=== PATIENT | male | born 1955 | race Caucasian/White ===

== ENCOUNTER → 2019-01-22 09:57 | Outpatient (CLI) | payer MEDICARE ==
[2015-11-26 07:32] VITALS: BMI 28.5
[~2019-01-22 09:57] MED LIST: ACETAMINOPHEN325 MG PO; CARDIZEM CD360 MG PO; CARDURA2 MG PO; CATAPRES0.1 MG PO; CELEXA20 MG PO; CO Q-1030 MG PO; COLCRYS0.6 MG PO; DILT-CD180 MG PO; GLUCOTROL 5 MG T5 MG PO; HEPARIN SOD5000 U/ML SQ; HUMULIN R100 U/ML SC; IMODIUM2 MG PO; LACTINEX GRANUL1 PCK PO; LEVAQUIN250 MG PO; LIPITOR10 MG PO; LIPITOR40 MG PO; MACRODANTIN50 MG PO; ORAPRED ODT10 MG/TAB POINH; PREDNISONE10 MG PO; PRILOSEC10 M1 PO; PROGRAF0.5 MG PO; PROTONIX40 MG PO; PROVASTATIN PO; TACROLIMUS ANHYD1 MG PO; TEGRETOL 200 M200 MG PO; TEGRETOL200 MG PO; ULORIC40 MG PO; ULTRAM50 MG PO; ZOFRAN4 MG PO; ZYLOPRIM100 MG PO
== END | disposition home or self-care (01) ==
LOC: D.US 09:57
PROVIDERS: ATTEND Internal Medicine Nephrology
DX: Z94.0 Kidney transplant status (principal)

== ENCOUNTER 2019-03-24 11:19 | Inpatient (IN) | payer MEDICARE ==
[~2019-03-24] VITALS: Ht 172.7 cm; Wt 82.6 kg
[2019-03-24] VITALS (9 sets, daily range): BP systolic 135–174; BP diastolic 71–114; BMI 27.0
[2019-03-24] MEDS ORDERED: COLCRYS0.6 MG PO (11:27)
[2019-03-24] MEDS ORDERED: ELIQUIS5 MG PO (11:28)
[2019-03-24] MEDS ORDERED: LASIX PO (11:28)
[2019-03-24 12:07] LABS: BASOPHILS 0.4 % (0-2); HEMATOCRIT 46.7 % (42.0-54.0); HEMOGLOBIN 16.2 g/dL (13.5-17.5); IMMATURE GRANULOCYTES 0.1 % (0-5); LYMPHOCYTES 35.6 % (15-50); MCH 31.8 pg (26.0-34.0); MCHC 34.7 g/dL (31.0-37.0); MCV 91.7 fL (80.0-100.0); MEAN PLATELET VOLUME 11.2 fL (7.4-10.4); MONOCYTES 7.2 % (2-11); NEUTROPHILS 52.7 % (40-80); RBC 5.09 10x6/uL (4.20-6.10); RDW 13.1 % (11.5-14.5); WBC 7.8 10x3/uL (4.8-10.8)
[2019-03-24 12:10] LABS: PLATELET COUNT 219 10x3/uL (130-400)
[2019-03-24 12:12] LABS: ALBUMIN 2.9 g/dL (3.4-5.0); ANION GAP 16.1 mmol/L (8-16); BILIRUBIN - TOTAL 0.49 mg/dL (0.2-1.3); CALCIUM 8.2 mg/dL (8.5-10.1); CARBON DIOXIDE 19.8 mmol/L (21.0-32.0); CREATININE - SERUM 2.5 mg/dL (0.6-1.3); POTASSIUM - SERUM 3.9 mmol/L (3.5-5.1); PROTEIN - SERUM 6.8 g/dL (6.4-8.2)
--- NOTE | 2019-03-24 14:00 | NUR ---
ATTEMPTED IN/OUT CATH. UNABLE TO PASS PROSTATE D/T RESISTANCE. NOTIFIED AN ANOTHER WILL ATTEMPT
--- NOTE | 2019-03-24 14:25 | NUR ---
BRENDA ALMEIDA ATTEMPTED TO STRAIGHT CATH. UNABLE TO ADVANCE. NOTED SMALL AMT RBR WHILE PLACING
--- NOTE | 2019-03-24 15:30 | NUR ---
DR CABEZAS AT BS. EXPL PROCEDURE TO PT: CYSTOSCOPY AND FC PLACEMENT. PT VERB UNDER. CONSENT SIGNED AND WITNESSED
--- NOTE | 2019-03-24 16:05 | NUR ---
TO CT VIA STRETCHER THEN TO ROOM # 2130, CONDITION STABLE
--- NOTE | 2019-03-24 16:18 | NUR ---
REPORT CALLED TO BRENDA ARELLANO
--- NOTE | 2019-03-24 16:36 | NUR ---
ARRIVE TO ROOM VIA WHEELCHAIR ACCOMPANIED BY DAUGHTER. ALERT AND ORIENTED X4. AMBULATES WITH ASSISTANCE TO BED. STATES USING WALKER AT HOME. REPORTS TAKING ELIQUIS. CONSENTS FOR CYSTOSCOPY SIGNED ON CHART. RT WRIST IV INFUSING NS @125ml/HR CONTINUED INFUSING PER . DENIES PAIN OR SOB. DENIES N/V. CONTINUE ADMISSION PROCESS AND SAFETY PRECAUTIONS.
[2019-03-24] MEDS ORDERED: NORVASC5 MG PO (16:50)
[2019-03-24] MEDS ORDERED: PEPCID40 MG PO (16:51)
--- NOTE | 2019-03-24 17:46 | NUR ---
TAKEN TO PROCEDURE VIA BED.
--- NOTE | 2019-03-24 18:37 | NUR ---
RETURN TO ROOM VIA BED FROM PROCEDURE. BARON CATHETER DRAINING BY GRAVITY SECURED TO RT INNER THIGH. BP-155/97, HR-83, O2-94% RA, T-98. DENIES ANY PAIN. ALERT AND ORIENTED X4. FAMILY AT BEDSIDE. CONTINUE PLAN OF CARE AND SAFETY PRECAUTIONS.
--- NOTE | 2019-03-24 19:31 | NUR ---
RECIEVED LAYING IN BED WITH HOB ELEVATED AND EYES CLOSED. EASILY AROUSES WITH VERBAL STIMULI. REPORTED RECENT FALLS AT HOME. F/C IN PLACE WITH CLEAR YELLOW URINE DRAINING TO BEDSIDE DRAINAGE SYSTEM. DENIES ANY NEEDS AT THIS TIME.
[2019-03-24 21:13] LABS: APPEARANCE CLEAR (CLEAR); COLOR YELLOW (YELLOW); NITRITE NEGATIVE (NEGATIVE); PROTEIN 1+ mg/dL (NEGATIVE); SPECIFIC GRAVITY 1.015 (1.005-1.020)
[2019-03-24 21:14] LABS: BILIRUBIN NEGATIVE (NEGATIVE); GLUCOSE NEGATIVE (NEGATIVE); KETONE NEGATIVE (NEGATIVE); UROBILINOGEN NORMAL (NORMAL)
[2019-03-24 21:15] LABS: BACTERIA FEW /hpf (NEGATIVE); RED CELLS - URINE 0-5 /hpf (0-5); WHITE CELLS - URINE 0-5 /hpf (NEGATIVE)
[2019-03-25] VITALS: BP 141/95
[2019-03-25 04:00] VITALS: BP 175/88
[2019-03-25 05:16] LABS: BASOPHILS 0.3 % (0-2); EOSINOPHILS 3.7 % (0-7); HEMATOCRIT 39.6 % (42.0-54.0); HEMOGLOBIN 13.2 g/dL (13.5-17.5); IMMATURE GRANULOCYTES 0.1 % (0-5); LYMPHOCYTES 28.3 % (15-50); MCH 30.8 pg (26.0-34.0); MCHC 33.3 g/dL (31.0-37.0); MCV 92.5 fL (80.0-100.0); MEAN PLATELET VOLUME 11.3 fL (7.4-10.4); MONOCYTES 7.8 % (2-11); NEUTROPHILS 59.8 % (40-80); RBC 4.28 10x6/uL (4.20-6.10); RDW 13.3 % (11.5-14.5); WBC 7.6 10x3/uL (4.8-10.8)
[2019-03-25 05:25] LABS: PLATELET COUNT 154 10x3/uL (130-400)
[2019-03-25 05:28] LABS: ANION GAP 14.4 mmol/L (8-16); CALCIUM 7.3 mg/dL (8.5-10.1); CARBON DIOXIDE 21.5 mmol/L (21.0-32.0); CREATININE - SERUM 2.1 mg/dL (0.6-1.3); MAGNESIUM - SERUM 1.2 mg/dL (1.8-2.4); POTASSIUM - SERUM 3.9 mmol/L (3.5-5.1)
--- NOTE | 2019-03-25 07:30 | NUR ---
RESTING IN BED WITH EYES CLOSED. RESPIRATIONS EVEN AND REGULAR. BARON DRAINING BY GRAVITY OFF THE FLOOR. CONTINUE PLAN OF CARE AND SAFETY PRECAUTIONS.
--- NOTE | 2019-03-25 08:22 | OP ---
PATIENT NAME: DEIRDRE HAYDEN MEDICAL RECORD: [id number] :59 LOCATION:[facility].2130 ADMISSION DATE:03/24/19 SURGEON: SKIP CABEZAS MD DATE OF OPERATION: 03/24/2019 SURGEON: Skip Cabezas MD ANESTHESIA: TIVA by No Hernandez CRNA. DIAGNOSES: Urinary retention, inability to be catheterized, urethral stricture. PROCEDURES: Cystoscopy, urethral stricture dilation, 16-Italian Hooper catheter insertion over a guidewire. FINDINGS: Bulbar urethral stricture, moderately obstructive lateral lobes of the prostate. BLOOD LOSS: None. CLINICAL HISTORY: This is a 63-year-old male, who has diabetes mellitus type 2 with end-stage renal failure. He has a cadaveric renal transplant in the right lower quadrant. He has an atonic neurogenic bladder for which he performs self-intermittent catheterization. He also has had coronary artery disease with a 4-vessel bypass grafting done and a previous history of a stroke. He is on Eliquis. He has not been able to catheterize himself today. He is running into resistance. The ER was unable to also be able to place a catheter into him. Therefore, a urology consultation was requested. He has some urethral bleeding from the catheterization attempts and I suspected that he might have a urethral injury. He has had chronic nausea and vomiting for the past 2 days. On reviewing his blood work, his white count is normal at 7.8, hemoglobin 16.2, his potassium is normal at 3.9, his BUN is elevated at 40 and creatinine is elevated at 2.5. I do not know what his baseline creatinine is. His magnesium is also low at 1.4. He comes now to have cystoscopy and Hooper catheter placement over a guidewire. DESCRIPTION OF PROCEDURE: The patient was given IV sedation. He was placed in lithotomy position and prepped and draped. A 21-Italian cystoscope with 30-degree lens was used for visualization. Going into the bulbar urethra, I encountered a tight urethral stricturing, which was irregular. Using the scope, I managed to dilate the stricture zone and get past. The prostate has some mild bilateral lateral lobe obstruction. Going into the bladder, there are single ureteral orifices bilaterally. No bladder tumors or blood clots are seen. The lens was removed with the cystoscope sheath and the bladder. A sensor wire was then inserted into the bladder through the cystoscope sheath. The sheath was then removed, leaving the wire in place. Over the wire, we inserted a 16-Italian kashia tip Hooper catheter. This was pushed all the way into the bladder and then the balloon was inflated with 10 cc of sterile water. The catheter was then put to bag drainage after removing the wire. TRANSINT:[id number] Voice Confirmation ID: [id number] DOCUMENT ID: [id number] OPERATIVE REPORT [id number] DEIRDRE HAYDEN, SKIP Allen MD at 0822 CC: [id number] DICTATION DATE: 03/24/19 182 DRIER: 03/25/19 0300 ADM IN [facility] [address] [place] [address]
[2019-03-25 08:45] VITALS: BP 150/99
[2019-03-25 12:45] VITALS: BP 174/69
[2019-03-25 14:39] VITALS: Ht 172.7 cm; Wt 82.6 kg
[2019-03-25 16:46] VITALS: BP 176/119
--- NOTE | 2019-03-25 18:20 | NUR ---
ALERT AND ORIENTED X4. SITTING UP IN BED WATCHING TV. DENIES PAIN OR SOB. REPORTS STILL HAVING DIARRHEA. BARON SECURED TO INNER RT THIGH DRAINING BY GRAVITY. CONTINUE PLAN OF CARE AND SAFETY PRECAUTIONS.
--- NOTE | 2019-03-25 19:16 | NUR ---
PATIENT IS AAO WATCHING TV. NO VISIBLE SIGNS OF DISTRESS. PATIENT DENIES ANY COMPLAINTS OR PAIN. BED IN THE LOWEST POSITION AND BED IN THE LOWEST POSITION.
[2019-03-25 20:00] VITALS: BP 191/101
[2019-03-26] VITALS: BP 143/98
[2019-03-26 04:00] VITALS: BP 139/75
[2019-03-26 05:51] LABS: ANION GAP 13.5 mmol/L (8-16); CALCIUM 7.3 mg/dL (8.5-10.1); CREATININE - SERUM 1.9 mg/dL (0.6-1.3); POTASSIUM - SERUM 3.5 mmol/L (3.5-5.1)
--- NOTE | 2019-03-26 07:52 | NUR ---
ASSESSMENT DONE. DENIES NEEDS
[2019-03-26 08:00] VITALS: BP 156/84
[2019-03-26] MEDS ORDERED: MAG-OX 400 MG400 MG PO (10:02)
--- NOTE | 2019-03-26 10:38 | NUR ---
I have reviewed this patient and I concur with the Shift Assessment completed by the Licensed Practical Nurse today this shift.
[2019-03-26 12:00] VITALS: BP 160/85
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
--- NOTE | 2019-03-26 13:10 | NUR ---
DC GIVEN TO PT
--- NOTE | 2019-03-26 13:29 | NUR ---
DC HOME PER PERSONAL CAR
--- NOTE | 2019-03-26 17:19 | MORECARE ---
CASE MANAGEMENT DISCHARGE SUMMARY PATIENT: DEIRDRE HAYDEN UNIT: [id number] ADM DATE: 03/24/19 AGE: 63 : 59 SEX: M ROOM/BED: D.2130 AUTHOR: MI PACK PHYSICIAN: REFERRING PHYSICIAN: TIGRE ALBARADO MD DATE OF SERVICE: 03/26/19 Discharge Plan Patient Name: DEIRDRE HAYDEN Facility: [facility]:[place] : 1955 Planned Disposition: Home Anticipated Discharge Date: 03/26/19 Discharge Date: 03/26/2019 Expected LOS: 2 Initial Reviewer: [email or web address] Initial Review Date: 03/26/2019 Generated: 03/26/19 6:19 pm Patient Name: DEIRDRE HAYDEN Page [id number] at 3513 All edits/amendments must be made on the electronic document DICTATION DATE: 03/26/191718 BAT CARRIER: PERLA 03/26/191718 RPT#: [id number] DC DATE:03/26/19 STATUS: DIS IN [facility] [address] [place] [address] END OF REPORT
--- NOTE | 2019-03-26 17:32 | MORECARE ---
CASE MANAGEMENT DISCHARGE SUMMARY PATIENT: DEIRDRE HAYDEN UNIT: [id number] ADM DATE: 03/24/19 AGE: 63 : 59 SEX: M ROOM/BED: D.2130 AUTHOR: RAMONEDOC PHYSICIAN: REFERRING PHYSICIAN: TIGRE ALBARADO MD DATE OF SERVICE: 03/26/19 Discharge Plan Patient Name: DEIRDRE HAYDEN Facility: [facility]:[place] : 1955 Planned Disposition: Home Anticipated Discharge Date: 03/26/19 Discharge Date: 03/26/2019 Expected LOS: 2 Initial Reviewer: [email or web address] Initial Review Date: 03/26/2019 Generated: 03/26/19 6:32 pm Comments DCP- Discharge Planning Updated by [email or web address]: Jordon Shine on 03/26/19 4:[address] Patient Name: DEIRDRE HAYDEN Admission Status: ER Accout number: [id number] Admission Date: 03-24-2019 : 1955 Admission Diagnosis: Attending: TIGRE ALBARADO Current LOS: 2 Anticipated DC Date: 03-26-2019 Planned Disposition: Home Primary Insurance: MEDICARE A & B Discharge Planning Comments: CM MET WITH PT IN ROOM TO DISCUSS DISCHARGE PLANNING AND NEEDS. PT REPORTS LIVING AT HOME INDEPENDENTLY WITH ADULT GRANDSON. PT HAS ROLLATOR WALKER THAT HE RARELY USES. PT HAS NO MEDICAL EQUIPMENT PROVIDER PREFERENCE AND NO OUTSIDE SERVICES ASSISTING IN THE HOME. CM DISCUSSED AVAILABILITY OF HOME HEALTH, REHAB SERVICES AND MEDICAL EQUIPMENT. PT DENIES DISCHARGE NEEDS, REPORTS HIS DAUGHTER WILL PICK HIM UP FOR DISCHARGE HOME. IMPORTANT MESSAGE FROM MEDICARE PROVIDED AND EXPLAINED. SHOP WELDER NURSE NOTIFIED. Sewer: Jordon Shine DCPIA - Discharge Planning Initial Assessment Updated by [email or web address]: Jordon Shine on 03/26/19 5:20 pm * Is the patient Alert and Oriented? Yes * How many steps to enter\exit or inside your home? * PCP DR. ALBARADO * Pharmacy [facility] * Preadmission Environment Home with Family * ADLs Independent * Equipment Rolling Walker * Other Equipment ROLLATOR WALKER - NO MEDICAL EQUIPMENT PROVIDER PREFERENCE * List name and contact numbers for known caregivers / representatives who currently or will assist patient after discharge: SHARON CAVAZOS DTR, * Verbal permission to speak to the caregivers and representatives has been obtained from the patient. N/A * Community resources currently utilized None * Please name any agencies selected above. NONE * Additional services required to return to the preadmission environment? No * Can the patient safely return to the preadmission environment? Yes * Has this patient been hospitalized within the prior 30 days at any hospital? No Coverage Notice Reviewer: [id number] Roberta Shine Notice Issued Date-Time: 03/26/2019 9:05 Notice Type: IM Discharge Notice Notice Delivered To: Patient Relationship to Patient: Furniture Repair Technician Name: Delivery Method: HAND - Hand Delivered Kate Days: Prior Verbal Notification: Recipient Understood Notice: Yes Recipient Signature: Yes Med Rec Note Co-signed by Attending: Coverage Notice Comment: Patient Name: DEIRDRE HAYDEN Page 85847 at 1732 All edits/amendments must be made on the electronic document DICTATION DATE: 03/26/191731 ICEBOX WORKER: PERLA 03/26/191731 RPT#: [id number] DC DATE:03/26/19 STATUS: DIS IN [facility] [address] [place] [address] END OF REPORT
== END 2019-03-26 13:37 | disposition home or self-care (01) | DRG 468 ==
LOC: D.ER 11:19 → D.M2 15:49
PROVIDERS: Emergency Medicine; Internal Medicine; Urology; ADMIT Internal Medicine Nephrology; ATTEND Internal Medicine Nephrology
PROC: 0T7D8ZZ Dilation of Urethra, Via Natural or Artificial Opening Endoscopic (ICD-10-PCS; 2019-03-24)
PROC: 0T9B80Z Drainage of Bladder with Drainage Device, Via Natural or Artificial Opening Endoscopic (ICD-10-PCS; principal; 2019-03-24 14:00)
DX: N35.919 Unspecified urethral stricture, male, unspecified site (principal); N17.9 Acute kidney failure, unspecified; Z94.0 Kidney transplant status; N13.8 Other obstructive and reflux uropathy; E86.0 Dehydration; R31.9 Hematuria, unspecified; E11.9 Type 2 diabetes mellitus without complications; I10 Essential (primary) hypertension; E83.42 Hypomagnesemia; N40.1 Benign prostatic hyperplasia with lower urinary tract symptoms; R33.8 Other retention of urine; I25.10 Atherosclerotic heart disease of native coronary artery without angina pectoris; Z86.73 Personal history of transient ischemic attack (TIA), and cerebral infarction without residual deficits

== ENCOUNTER 2019-05-28 17:59 | Inpatient (IN) | payer MEDICARE ==
[~2019-05-28] VITALS: Ht 172.7 cm; Wt 83.6 kg
[~2019-05-28 17:59] MED LIST changes: +ELIQUIS5 MG PO; +LASIX PO; +MAG-OX 400 MG400 MG PO; +NORVASC5 MG PO; +PEPCID40 MG PO
[2019-05-28 19:36] LABS: BASOPHILS 0.5 % (0-2); EOSINOPHILS 2.1 % (0-7); HEMATOCRIT 38.6 % (42.0-54.0); HEMOGLOBIN 12.6 g/dL (13.5-17.5); IMMATURE GRANULOCYTES 0.1 % (0-5); LYMPHOCYTES 21.3 % (15-50); MCH 30.8 pg (26.0-34.0); MCHC 32.6 g/dL (31.0-37.0); MCV 94.4 fL (80.0-100.0); MEAN PLATELET VOLUME 9.9 fL (7.4-10.4); MONOCYTES 12.8 % (2-11); NEUTROPHILS 63.2 % (40-80); RBC 4.09 10x6/uL (4.20-6.10); RDW 13.8 % (11.5-14.5)
[2019-05-28 19:39] LABS: PLATELET COUNT 204 10x3/uL (130-400)
[2019-05-28 20:14] LABS: CALC OSMOLALITY 292 mosm/kg (275-300); CARBON DIOXIDE 16.2 mmol/L (21.0-32.0); CHLORIDE - SERUM 109 mmol/L (98-107); CREATININE - SERUM 3.4 mg/dL (0.6-1.3); GLUCOSE 107 mg/dL (74-106); POTASSIUM - SERUM 5.8 mmol/L (3.5-5.1); SODIUM 140 mmol/L (136-145); UREA NITROGEN 53 mg/dL (7-18); eGFR NON AFRICAN AMERICAN 20 mL/min (90-120)
[2019-05-28 20:23] LABS: APPEARANCE CLEAR (CLEAR); BILIRUBIN NEGATIVE (NEGATIVE); COLOR YELLOW (YELLOW); GLUCOSE NEGATIVE (NEGATIVE); KETONE NEGATIVE (NEGATIVE); NITRITE NEGATIVE (NEGATIVE); PROTEIN 1+ mg/dL (NEGATIVE); SPECIFIC GRAVITY 1.015 (1.005-1.020); UROBILINOGEN NORMAL (NORMAL)
[2019-05-28 20:24] LABS: BACTERIA MANY /hpf (NEGATIVE); RED CELLS - URINE 0-5 /hpf (0-5)
[2019-05-28 20:27] LABS: ALBUMIN 3.3 g/dL (3.4-5.0); ALKALINE PHOSPHATASE 181 U/L (46-116); ALT (SGPT) 19 U/L (10-68); BILIRUBIN - TOTAL 0.55 mg/dL (0.2-1.3); LIPASE 328 U/L (73-393); MAGNESIUM - SERUM 1.5 mg/dL (1.8-2.4); PRO BNP 1791 pg/mL (0-125); PROTEIN - SERUM 7.3 g/dL (6.4-8.2); THYROID STIMULATING HORMONE 0.78 uIU/mL (0.36-3.74)
[2019-05-28 20:28] LABS: TROPONIN-I < 0.017 ng/mL (0.000-0.060)
[2019-05-28 22:38] VITALS: BP 111/57; BMI 25.9
[2019-05-28 23:20] LABS: ANION GAP 17.2 mmol/L (8-16); CALCIUM 8.8 mg/dL (8.5-10.1); CARBON DIOXIDE 17.5 mmol/L (21.0-32.0); CREATININE - SERUM 3.4 mg/dL (0.6-1.3); POTASSIUM - SERUM 5.7 mmol/L (3.5-5.1)
--- NOTE | 2019-05-29 03:36 | NUR ---
PT HAD 2 EPISODES OF WATERY BROWN STOOL. STOOL SAMPLE COLLECTED AND SENT TO LAB TO TEST FOR CDIFF PER ORDER. IN THE TOILET BUT NOT IN THE STOOL, WAS BRIGHT RED BLOOD. PT STATES HE HAS NEVER HAD HEMMOROIDS OR BLOOD IN THE STOOL. WILL CONTINUE TO MONITOR.
[2019-05-29 05:52] LABS: BASOPHILS 0.3 % (0-2); EOSINOPHILS 3.2 % (0-7); HEMOGLOBIN 11.2 g/dL (13.5-17.5); LYMPHOCYTES 19.3 % (15-50); MCH 30.3 pg (26.0-34.0); MCHC 32.9 g/dL (31.0-37.0); MEAN PLATELET VOLUME 10.4 fL (7.4-10.4); MONOCYTES 11.5 % (2-11); NEUTROPHILS 65.7 % (40-80); PLATELET COUNT 198 10x3/uL (130-400); RDW 13.6 % (11.5-14.5); WBC 6.3 10x3/uL (4.8-10.8)
[2019-05-29 06:12] LABS: MCV 91.9 fL (80.0-100.0)
[2019-05-29 06:13] LABS: ALBUMIN 2.8 g/dL (3.4-5.0); BILIRUBIN - TOTAL 0.42 mg/dL (0.2-1.3); CALCIUM 8.5 mg/dL (8.5-10.1); CARBON DIOXIDE 18.1 mmol/L (21.0-32.0); CREATININE - SERUM 3.3 mg/dL (0.6-1.3); MAGNESIUM - SERUM 1.3 mg/dL (1.8-2.4); PHOSPHOROUS 2.8 mg/dL (2.5-4.9); PROTEIN - SERUM 6.7 g/dL (6.4-8.2)
[2019-05-29 06:14] LABS: ANION GAP 17.6 mmol/L (8-16); POTASSIUM - SERUM 4.7 mmol/L (3.5-5.1)
--- NOTE | 2019-05-29 07:20 | NUR ---
RECIEVE REPORT. ALERT AND ORIENTED X4. LAYING IN BED. BARON DRAINING BY GRAVITY. BARON PLACED DUE TO RETENTION. DENIES ANY NEEDS A THIS TIME. CONTINUE PLAN OF CARE AND SAFETY PRECAUTIONS.
[2019-05-29 08:19] VITALS: BP 94/56
[2019-05-29 12:30] VITALS: BP 110/60
[2019-05-29] MEDS ORDERED: LISINOPRIL20 MG PO (12:50)
[2019-05-29 13:11] VITALS: Ht 172.7 cm; Wt 83.6 kg
--- NOTE | 2019-05-29 14:34 | MORECARE ---
CASE MANAGEMENT DISCHARGE SUMMARY PATIENT: DEIRDRE HAYDEN UNIT: [id number] ADM DATE: 05/28/19 AGE: 63 : 59 SEX: M ROOM/BED: D.2109 AUTHOR: MI PACK PHYSICIAN: REFERRING PHYSICIAN: ERIC LEGER MD DATE OF SERVICE: 05/29/19 Discharge Plan Patient Name: DEIRDRE HAYDEN [facility] [facility] 1955 Planned Disposition: Snf Facility Anticipated Discharge Date: 05/31/19 Discharge Date: Expected LOS: 3 Initial Reviewer: [email or web address] Initial Review Date: 05/29/2019 Generated: 05/29/19 3:34 pm Patient Name: DEIRDRE HAYDEN Page [phone] at 1434 All edits/amendments must be made on the electronic document DICTATION DATE: 05/29/191433 RELAY SHOP TESTER: PERLA 05/29/19 1434 RPT#: [id number] DC DATE: STATUS: ADM IN [facility] [address] [place] [address] END OF REPORT
--- NOTE | 2019-05-29 14:44 | MORECARE ---
CASE MANAGEMENT DISCHARGE SUMMARY PATIENT: DEIRDRE HAYDEN UNIT: [id number] ADM DATE: 05/28/19 AGE: 63 : 59 SEX: M ROOM/BED: D.2109 AUTHOR: MI PACK PHYSICIAN: REFERRING PHYSICIAN: ERIC LEGER MD DATE OF SERVICE: 05/29/19 Discharge Plan Patient Name: DEIRDRE HAYDEN [facility] [facility] 1955 Planned Disposition: Fpc Facility Anticipated Discharge Date: 05/31/19 Discharge Date: Expected LOS: 3 Initial Reviewer: [email or web address] Initial Review Date: 05/29/2019 Generated: 05/29/19 3:43 pm DCPIA - Discharge Planning Initial Assessment Updated by [email or web address]: Jordon Shine on 05/29/19 2:38 pm * Is the patient Alert and Oriented? Yes * How many steps to enter\exit or inside your home? * PCP DR. ALBARADO * Pharmacy [facility] * Preadmission Environment Home with Family * ADLs Independent * Equipment Rolling Walker * Other Equipment ROLLATOR WALKER, NO MEDICAL EQUIPMENT PROVIDER PREFERENCE * List name and contact numbers for known caregivers / representatives who currently or will assist patient after discharge: SHARON CAVAZOS, DTR, ALLEN BUTTS, DTR, * Verbal permission to speak to the caregivers and representatives has been obtained from the patient. Yes * Community resources currently utilized None * Please name any agencies selected above. NONE * Additional services required to return to the preadmission environment? Yes * Can the patient safely return to the preadmission environment? Yes * Has this patient been hospitalized within the prior 30 days at any hospital? No Last DP export: 05/29/19 1:34 Patient Name: DEIRDRE HAYDEN Page [id number] at 1444 All edits/amendments must be made on the electronic document DICTATION DATE: 05/29/191442 BAKERY DELIVERER: PERLA 05/29/19 144 RPT#: [id number] DC DATE: STATUS: ADM IN [facility] [address] [place] [address] END OF REPORT
--- NOTE | 2019-05-29 15:19 | MORECARE ---
CASE MANAGEMENT DISCHARGE SUMMARY PATIENT: DEIRDRE HAYDEN UNIT: [id number] ADM DATE: 05/28/19 AGE: 63 : 59 SEX: M ROOM/BED: D.3882 AUTHOR: RAMONEDOC PHYSICIAN: REFERRING PHYSICIAN: ERIC LEGER MD DATE OF SERVICE: 05/29/19 Discharge Plan Patient Name: DEIRDRE HAYDEN [facility] [facility] 1955 Planned Disposition: Assisted Facility Anticipated Discharge Date: 05/31/19 Discharge Date: Expected LOS: 3 Initial Reviewer: [email or web address] Initial Review Date: 05/29/2019 Generated: 05/29/19 4:19 pm Comments DCP- Discharge Planning Updated by [email or web address]: Jordon Shine on 05/29/19 2:[address] Patient Name: DEIRDRE HAYDEN Admission Status: ER Accout number: [id number] Admission Date: 05-28-2019 : 1955 Admission Diagnosis: Attending: ERIC LEGER Current LOS: 1 Anticipated DC Date: 05-31-2019 Planned Disposition: Assisted Facility Primary Insurance: MEDICARE A & B PLANNED EXTERNAL PROVIDER: [facility], MEDICARE REH BED Discharge Planning Comments: CM RECEIVED ORDER FOR ASSISTED LIVING, PT CANNOT RETURN TO LIVE WITH DAUGHTERS. CM MET WITH PT AND DAUGHTER IN ROOM TO DISCUSS DISCHARGE PLANNING AND NEEDS.DEIRDRE HAYDEN provided verbal consent to discuss current and ongoing needs with/in the presence of: DAUGHTER, ALLEN. PT REPORTS LIVING AT HOME INDEPENDENTLY WITH HIS ADULT DAUGHTER. PT HAS ROLLATOR WALKER WITH NO MEDICAL EQUIPMENT PROVIDER PREFERENCE. PT DOES SELF CATH HIMSELF. PT HAS NO OUTSIDE SERVICES ASSISTING IN THE HOME. CM DISCUSSED AVAILABILITY OF HOME HEALTH, REHAB SERVICES AND MEDICAL EQUIPMENT. PT DENIES DISCHARGE NEEDS, CM DISCUSSED ORDER. PT MOSTLY SILENT. PT'S DAUGHTER REPORTS PT DOES NOT QUALIFY FOR MEDICAID DUE TO HOUSEHOLD INCOME WITH PT LIVING THERE DESPITE PT'S ONLY INCOME OF BEING $900 PER MONTH. PT HAS QUALIFIED FOR MEDICAID AT [facility] IN THE PAST WHEN PLACED THERE. FAMILY WAS NOT ABLE TO AFFORD ASSISTED LIVING WITHOUT MEDICAID ASSISTANCE. FAMILY HAD ARRANGED FOR PT TO GO TO [facility] BUT PT HAS REFUSED. CM EXPLAINED THAT GIVEN INFORMATION REGARDING FINANCES CM WAS NOT ABLE TO GET PT INTO ASSISTED LIVING, PT'S INCOME IS NOT SUFFICIENT FOR PRIVATE PAY ASSISTED LIVING OR PRISON PLACEMENT. CM EXPLAINED THAT CM MAY GET PT INTO REHAB AT NURSING FACILITY AND HE MAY TRANSITION TO SENIOR CARE CARE AT THE FACILITY. PT WOULD LIKE TO TALK TO DAUGHTER ALONE AND WILL LET CM KNOW HIS DECISION. CM LEFT CHOICE FORM FOR PT AND FAMILY CONSIDERATION WITH CM CONTACT INFORMATION. CM LATER RECEVIED CALL FROM PT WHO ASKED CM TO RETURN TO ROOM. CM MET WITH PT IN ROOM, PT REPORTS HE WILL GO TO A USP, FIRST CHOICE IS [facility], SECOND CHOICE IS [facility]. CHOICE LETTER SIGNED. CM CALLED [facility], , LEFT MESSAGE FOR [facility] REGARDING REFERRAL. CM FAXED REFERRAL TO [facility] AT [phone]. CM WAITING ADMISSION DETERMINATION FROM [facility] FOR REHAB WITH TRANSITION TO APPLICATION SYSTEMS ADMINISTRATOR CARE PLACEMENT. Meter Installer And Remover: Jordon Shine DCPIA - Discharge Planning Initial Assessment Updated by [email or web address]: Jordon Shine on 05/29/19 2:38 pm * Is the patient Alert and Oriented? Yes * How many steps to enter\exit or inside your home? * PCP DR. ALBARADO * Pharmacy [facility] * Preadmission Environment Home with Family * ADLs Independent * Equipment Rolling Walker * Other Equipment ROLLATOR WALKER, NO MEDICAL EQUIPMENT PROVIDER PREFERENCE * List name and contact numbers for known caregivers / representatives who currently or will assist patient after discharge: SHARON CAVAZOS, DTR, ALLEN BECKIE, DTR, * Verbal permission to speak to the caregivers and representatives has been obtained from the patient. Yes * Community resources currently utilized None * Please name any agencies selected above. NONE * Additional services required to return to the preadmission environment? Yes * Can the patient safely return to the preadmission environment? Yes * Has this patient been hospitalized within the prior 30 days at any hospital? No External Providers External Provider: [facility] Next Contact Date: 05/29/2019 Service Request Date: Service Type: Resolution: Reviewer: Comments: Last DP export: 05/29/19 1:44 Patient Name: DEIRDRE HAYDEN Page 84149 at 0888 All edits/amendments must be made on the electronic document DICTATION DATE: 05/29/191518 ADAPTIVE PHYSICAL EDUCATION SPECIALIST: PERLA 05/29/191518 RPT#: [id number] [place] DATE: STATUS: ADM IN [facility] [address] [place] [address] END OF REPORT
--- NOTE | 2019-05-29 15:19 | NUR ---
RECEIVED REPORT FROM ADAN/BRENDA
--- NOTE | 2019-05-29 15:26 | MORECARE ---
CASE MANAGEMENT DISCHARGE SUMMARY PATIENT: DEIRDRE HAYDEN UNIT: [id number] ADM DATE: 05/28/19 AGE: 63 : 59 SEX: M ROOM/BED: D.2772 AUTHOR: RAMONEDOC PHYSICIAN: REFERRING PHYSICIAN: ERIC LEGER MD DATE OF SERVICE: 05/29/19 Discharge Plan Patient Name: DEIRDRE HAYDEN [facility] [facility] 1955 Planned Disposition: Fpc Facility Anticipated Discharge Date: 05/31/19 Discharge Date: Expected LOS: 3 Initial Reviewer: [email or web address] Initial Review Date: 05/29/2019 Generated: 05/29/19 4:26 pm Comments DCP- Discharge Planning Updated by [email or web address]: Jordon Shine on 05/29/19 2:[address] Patient Name: DEIRDRE HAYDEN Admission Status: ER Accout number: [id number] Admission Date: 05-28-2019 : 1955 Admission Diagnosis: Attending: ERIC LEGER Current LOS: 1 Anticipated DC Date: 05-31-2019 Planned Disposition: Fpc Facility Primary Insurance: MEDICARE A & B PLANNED EXTERNAL PROVIDER: [facility], MEDICARE REH BED Discharge Planning Comments: CM RECEIVED ORDER FOR ASSISTED LIVING, PT CANNOT RETURN TO LIVE WITH DAUGHTERS. CM MET WITH PT AND DAUGHTER IN ROOM TO DISCUSS DISCHARGE PLANNING AND NEEDS.DEIRDRE HAYDEN provided verbal consent to discuss current and ongoing needs with/in the presence of: DAUGHTER, ALLEN. PT REPORTS LIVING AT HOME INDEPENDENTLY WITH HIS ADULT DAUGHTER. PT HAS ROLLATOR WALKER WITH NO MEDICAL EQUIPMENT PROVIDER PREFERENCE. PT DOES SELF CATH HIMSELF. PT HAS NO OUTSIDE SERVICES ASSISTING IN THE HOME. CM DISCUSSED AVAILABILITY OF HOME HEALTH, REHAB SERVICES AND MEDICAL EQUIPMENT. PT DENIES DISCHARGE NEEDS, CM DISCUSSED ORDER. PT MOSTLY SILENT. PT'S DAUGHTER REPORTS PT DOES NOT QUALIFY FOR MEDICAID DUE TO HOUSEHOLD INCOME WITH PT LIVING THERE DESPITE PT'S ONLY INCOME OF BEING $900 PER MONTH. PT HAS QUALIFIED FOR MEDICAID AT [facility] IN THE PAST WHEN PLACED THERE. FAMILY WAS NOT ABLE TO AFFORD ASSISTED LIVING WITHOUT MEDICAID ASSISTANCE. FAMILY HAD ARRANGED FOR PT TO GO TO [facility] BUT PT HAS REFUSED. CM EXPLAINED THAT GIVEN INFORMATION REGARDING FINANCES CM WAS NOT ABLE TO GET PT INTO ASSISTED LIVING, PT'S INCOME IS NOT SUFFICIENT FOR PRIVATE PAY ASSISTED LIVING OR [facility] PLACEMENT. CM EXPLAINED THAT CM MAY GET PT INTO REHAB AT NURSING FACILITY AND HE MAY TRANSITION TO HALF-WAY CARE AT THE FACILITY. PT WOULD LIKE TO TALK TO DAUGHTER ALONE AND WILL LET CM KNOW HIS DECISION. CM LEFT CHOICE FORM FOR PT AND FAMILY CONSIDERATION WITH CM CONTACT INFORMATION. CM LATER RECEVIED CALL FROM PT WHO ASKED CM TO RETURN TO ROOM. CM MET WITH PT IN ROOM, PT REPORTS HE WILL GO TO A SKILLED NURSING, FIRST CHOICE IS [facility], SECOND CHOICE IS [facility]. CHOICE LETTER SIGNED. CM CALLED [facility], , LEFT MESSAGE FOR [facility] REGARDING REFERRAL. CM FAXED REFERRAL TO [facility] AT [phone]. CM WAITING ADMISSION DETERMINATION FROM [facility] FOR REHAB WITH TRANSITION TO VALUATION CONSULTANT CARE PLACEMENT. Radar Signal Processing Engineer: Jordon Shine DCPIA - Discharge Planning Initial Assessment Updated by [email or web address]: Jordon Shine on 05/29/19 2:38 pm * Is the patient Alert and Oriented? Yes * How many steps to enter\exit or inside your home? * PCP DR. ALBARADO * Pharmacy [facility] * Preadmission Environment Home with Family * ADLs Independent * Equipment Rolling Walker * Other Equipment ROLLATOR WALKER, NO MEDICAL EQUIPMENT PROVIDER PREFERENCE * List name and contact numbers for known caregivers / representatives who currently or will assist patient after discharge: SHARON CAVAZOS, DTR, ALLEN BECKIE, DTR, * Verbal permission to speak to the caregivers and representatives has been obtained from the patient. Yes * Community resources currently utilized None * Please name any agencies selected above. NONE * Additional services required to return to the preadmission environment? Yes * Can the patient safely return to the preadmission environment? Yes * Has this patient been hospitalized within the prior 30 days at any hospital? No External Providers External Provider: [facility] Next Contact Date: 05/29/2019 Service Request Date: Service Type: Resolution: Reviewer: Comments: Last DP export: 05/29/19 2:19 Patient Name: DEIRDRE HAYDEN Page [phone] at 1526 All edits/amendments must be made on the electronic document DICTATION DATE: 05/29/191524 TURRET PUNCH OPERATOR: PERLA 05/29/191524 RPT#: [id number] DC DATE: STATUS: ADM IN [facility] [address] [facility] [place] [address] END OF REPORT
[2019-05-29 15:31] VITALS: BP 142/73
--- NOTE | 2019-05-29 15:44 | MORECARE ---
CASE MANAGEMENT DISCHARGE SUMMARY PATIENT: DEIRDRE HAYDEN UNIT: [id number] ADM DATE: 05/28/19 AGE: 63 : 59 SEX: M ROOM/BED: D.5989 AUTHOR: RAMONEDOC PHYSICIAN: REFERRING PHYSICIAN: ERIC LEGER MD DATE OF SERVICE: 05/29/19 Discharge Plan Patient Name: DEIRDRE HAYDEN [facility] [facility] 1955 Planned Disposition: Residential Facility Anticipated Discharge Date: 05/31/19 Discharge Date: Expected LOS: 3 Initial Reviewer: [id number] Initial Review Date: 05/29/2019 Generated: 05/29/19 4:43 pm Comments DCP- Discharge Planning Updated by [id number]: Jordon Shine on 05/29/19 2:[address] Patient Name: DEIRDRE HAYDEN Admission Status: ER Accout number: [id number] Admission Date: 05-28-2019 : 1955 Admission Diagnosis: Attending: ERIC LEGER Current LOS: 1 Anticipated DC Date: 05-31-2019 Planned Disposition: Residential Facility Primary Insurance: MEDICARE A & B PLANNED EXTERNAL PROVIDER: [facility], MEDICARE REH BED Discharge Planning Comments: CM RECEIVED ORDER FOR ASSISTED LIVING, PT CANNOT RETURN TO LIVE WITH DAUGHTERS. CM MET WITH PT AND DAUGHTER IN ROOM TO DISCUSS DISCHARGE PLANNING AND NEEDS.DEIRDRE HAYDEN provided verbal consent to discuss current and ongoing needs with/in the presence of: DAUGHTER, ALLEN. PT REPORTS LIVING AT HOME INDEPENDENTLY WITH HIS ADULT DAUGHTER. PT HAS ROLLATOR WALKER WITH NO MEDICAL EQUIPMENT PROVIDER PREFERENCE. PT DOES SELF CATH HIMSELF. PT HAS NO OUTSIDE SERVICES ASSISTING IN THE HOME. CM DISCUSSED AVAILABILITY OF HOME HEALTH, REHAB SERVICES AND MEDICAL EQUIPMENT. PT DENIES DISCHARGE NEEDS, CM DISCUSSED ORDER. PT MOSTLY SILENT. PT'S DAUGHTER REPORTS PT DOES NOT QUALIFY FOR MEDICAID DUE TO HOUSEHOLD INCOME WITH PT LIVING THERE DESPITE PT'S ONLY INCOME OF BEING $900 PER MONTH. PT HAS QUALIFIED FOR MEDICAID AT [facility] IN THE PAST WHEN PLACED THERE. FAMILY WAS NOT ABLE TO AFFORD ASSISTED LIVING WITHOUT MEDICAID ASSISTANCE. FAMILY HAD ARRANGED FOR PT TO GO TO [facility] BUT PT HAS REFUSED. CM EXPLAINED THAT GIVEN INFORMATION REGARDING FINANCES CM WAS NOT ABLE TO GET PT INTO ASSISTED LIVING, PT'S INCOME IS NOT SUFFICIENT FOR PRIVATE PAY ASSISTED LIVING OR RESIDENTIAL PLACEMENT. CM EXPLAINED THAT CM MAY GET PT INTO REHAB AT NURSING FACILITY AND HE MAY TRANSITION TO USP CARE AT THE FACILITY. PT WOULD LIKE TO TALK TO DAUGHTER ALONE AND WILL LET CM KNOW HIS DECISION. CM LEFT CHOICE FORM FOR PT AND FAMILY CONSIDERATION WITH CM CONTACT INFORMATION. CM LATER RECEVIED CALL FROM PT WHO ASKED CM TO RETURN TO ROOM. CM MET WITH PT IN ROOM, PT REPORTS HE WILL GO TO A CARE HOME, FIRST CHOICE IS [facility], SECOND CHOICE IS [facility]. CHOICE LETTER SIGNED. CM CALLED [facility], , LEFT MESSAGE FOR GILLIAN REGARDING REFERRAL. CM FAXED REFERRAL TO [facility] AT [phone]. CM WAITING ADMISSION DETERMINATION FROM [facility] FOR REHAB WITH TRANSITION TO PHOTOGRAPHIC TECHNICIAN CARE PLACEMENT. Diagnostic Assistant: Jordon Shine Appended by Jordon Shine on 05/29/2019 15:38 FLAT BREAKDOWN PROCESSOR: [facility], [phone], SPOKE TO JAMESON, DISCUSSED REFERRAL. CM FAXED REFERRAL TO [facility] AT [phone]. CM WAITING ADMISSION DETERMINATION [facility] WITH TRANSITION TO USP CARE PLACEMENT. Diagnostic Assistant: Jordon Shine DCPIA - Discharge Planning Initial Assessment Updated by [email or web address]: Jordon Shine on 05/29/19 2:38 pm * Is the patient Alert and Oriented? Yes * How many steps to enter\exit or inside your home? * PCP DR. ALBARADO * Pharmacy [facility] * Preadmission Environment Home with Family * ADLs Independent * Equipment Rolling Walker * Other Equipment ROLLATOR WALKER, NO MEDICAL EQUIPMENT PROVIDER PREFERENCE * List name and contact numbers for known caregivers / representatives who currently or will assist patient after discharge: SHARON CAVAZOS, BOOKERR, ALLEN BUTTS DTR, * Verbal permission to speak to the caregivers and representatives has been obtained from the patient. Yes * Community resources currently utilized None * Please name any agencies selected above. NONE * Additional services required to return to the preadmission environment? Yes * Can the patient safely return to the preadmission environment? Yes * Has this patient been hospitalized within the prior 30 days at any hospital? No Last DP export: 05/29/19 2:26 Patient Name: DEIRDRE HAYDEN Page 10034 at 1544 All edits/amendments must be made on the electronic document DICTATION DATE: 05/29/191542 ANY COMMODITY SALES DELIVERER: PERLA 05/29/191542 RPT#: [id number] DC DATE: STATUS: ADM IN [facility] [address] [place] [address] END OF REPORT
--- NOTE | 2019-05-29 19:25 | NUR ---
A&O X 4. DENIES NAUSEA/PAIN AT THIS TIME, BUT REPORTS IT'S ALL OVER WHEN IT COMES AND GOES AND HE WILL NOTIFY WHEN PAIN IS PRESENT. VS STABLE, DENIES NEEDS AT THIS TIME, WILL CONTINUE TO MONITOR.
[2019-05-29 20:00] VITALS: BP 111/68
[2019-05-29 23:00] VITALS: BP 140/86
--- NOTE | 2019-05-30 02:35 | NUR ---
I have reviewed this patient and I concur with the Shift Assessment completed by the Licensed Practical Nurse today this shift.
[2019-05-30 04:00] VITALS: BP 138/72
[2019-05-30 05:07] LABS: BASOPHILS 0.3 % (0-2); EOSINOPHILS 7.1 % (0-7); HEMATOCRIT 31.1 % (42.0-54.0); HEMOGLOBIN 10.2 g/dL (13.5-17.5); IMMATURE GRANULOCYTES 0.2 % (0-5); LYMPHOCYTES 19.7 % (15-50); MCH 29.7 pg (26.0-34.0); MCHC 32.8 g/dL (31.0-37.0); MCV 90.4 fL (80.0-100.0); MEAN PLATELET VOLUME 9.7 fL (7.4-10.4); NEUTROPHILS 58.7 % (40-80); PLATELET COUNT 167 10x3/uL (130-400); RBC 3.44 10x6/uL (4.20-6.10); RDW 13.3 % (11.5-14.5); WBC 6.1 10x3/uL (4.8-10.8)
[2019-05-30 05:47] LABS: ANION GAP 10.8 mmol/L (8-16); CALCIUM 8.4 mg/dL (8.5-10.1); CREATININE - SERUM 2.8 mg/dL (0.6-1.3); MAGNESIUM - SERUM 1.5 mg/dL (1.8-2.4); PHOSPHOROUS 2.8 mg/dL (2.5-4.9); POTASSIUM - SERUM 4.1 mmol/L (3.5-5.1)
[2019-05-30 05:50] LABS: CARBON DIOXIDE 26.3 mmol/L (21.0-32.0)
--- NOTE | 2019-05-30 07:31 | NUR ---
PATIENT IS RESTING QUIETLY AT THIS TIME. DENIES ANY NEEDS AT THIS TIME. RECIEVED REPORT FROM APPLICATION TECHNICIAN. WILL CONTINUE TO MONITOR CLOSELY.
[2019-05-30 09:30] VITALS: BP 116/68
--- NOTE | 2019-05-30 12:28 | MORECARE ---
CASE MANAGEMENT DISCHARGE SUMMARY PATIENT: DEIRDRE HAYDEN UNIT: [id number] ADM DATE: 05/28/19 AGE: 63 : 59 SEX: M ROOM/BED: D.2105 AUTHOR: MI PACK PHYSICIAN: REFERRING PHYSICIAN: ERIC LEGER MD DATE OF SERVICE: 05/30/19 Discharge Plan Patient Name: DEIRDRE HAYDEN Facility: [facility]:[place] : 1955 Planned Disposition: Fdc Facility Anticipated Discharge Date: 05/31/19 Discharge Date: Expected LOS: 3 Initial Reviewer: [id number] Initial Review Date: 05/29/2019 Generated: 05/30/19 1:27 pm Comments DCP- Discharge Planning Updated by [id number]: Jorodn Shine on 05/30/19 11:[address] Patient Name: DEIRDRE HAYDEN Encounter No: [id number] : 1955 Primary Insurance: MEDICARE A & B Anticipated DC Date: 05-31-2019 Planned Disposition: Fdc Facility External Planned Provider: [facility], MEDICARE REHAB BED Discharge Planning Comments: CM RECEIVED CALL FROM [facility], , THEY WILL ACCEPT FOR REHAB TO TRANSITION TO LOCAL DELIVERY TRUCK DRIVER CARE ON 05-31-19. PATIENT NOTIFIED. IMPORTANT MESSAGE FROM MEDICARE PROVIDED AND EXPLAINED. [facility] TO ACCEPT FOR REHAB ON 05-31-19 OR AFTER. FAX DISCHARGE INFORAMTION TO [facility] AT [phone]. FAX NURSE REPORT TO [facility], . [facility] TO ARRANGE TRANSPORTATION, FAMILY MAY TRANSPORT IF [facility] CANNOT. Off Premise Service Representative: Jordon Shine DCP- Discharge Planning Updated by [id number]: Jordon Shine on 05/29/19 2:[address] Patient Name: DEIRDRE HAYDEN Admission Status: ER Accout number: [id number] Admission Date: 05-28-2019 : 1955 Admission Diagnosis: Attending: ERIC LEGER Current LOS: 1 Anticipated DC Date: 05-31-2019 Planned Disposition: Fdc Facility Primary Insurance: MEDICARE A & B PLANNED EXTERNAL PROVIDER: [facility] Discharge Planning Comments: CM RECEIVED ORDER FOR ASSISTED LIVING, PT CANNOT RETURN TO LIVE WITH DAUGHTERS. CM MET WITH PT AND DAUGHTER IN ROOM TO DISCUSS DISCHARGE PLANNING AND NEEDS.DEIRDRE HAYDEN provided verbal consent to discuss current and ongoing needs with/in the presence of: DAUGHTER, ALLEN. PT REPORTS LIVING AT HOME INDEPENDENTLY WITH HIS ADULT DAUGHTER. PT HAS ROLLATOR WALKER WITH NO MEDICAL EQUIPMENT PROVIDER PREFERENCE. PT DOES SELF CATH HIMSELF. PT HAS NO OUTSIDE SERVICES ASSISTING IN THE HOME. CM DISCUSSED AVAILABILITY OF HOME HEALTH, REHAB SERVICES AND MEDICAL EQUIPMENT. PT DENIES DISCHARGE NEEDS, CM DISCUSSED ORDER. PT MOSTLY SILENT. PT'S DAUGHTER REPORTS PT DOES NOT QUALIFY FOR MEDICAID DUE TO HOUSEHOLD INCOME WITH PT LIVING THERE DESPITE PT'S ONLY INCOME OF BEING $900 PER MONTH. PT HAS QUALIFIED FOR MEDICAID AT [facility] IN THE PAST WHEN PLACED THERE. FAMILY WAS NOT ABLE TO AFFORD ASSISTED LIVING WITHOUT MEDICAID ASSISTANCE. FAMILY HAD ARRANGED FOR PT TO GO TO [facility] BUT PT HAS REFUSED. CM EXPLAINED THAT GIVEN INFORMATION REGARDING FINANCES CM WAS NOT ABLE TO GET PT INTO ASSISTED LIVING, PT'S INCOME IS NOT SUFFICIENT FOR PRIVATE PAY ASSISTED LIVING OR HALFWAY PLACEMENT. CM EXPLAINED THAT CM MAY GET PT INTO REHAB AT NURSING FACILITY AND HE MAY TRANSITION TO LOCAL DELIVERY TRUCK DRIVER CARE AT THE FACILITY. PT WOULD LIKE TO TALK TO DAUGHTER ALONE AND WILL LET CM KNOW HIS DECISION. CM LEFT CHOICE FORM FOR PT AND FAMILY CONSIDERATION WITH CM CONTACT INFORMATION. CM LATER RECEVIED CALL FROM PT WHO ASKED CM TO RETURN TO ROOM. CM MET WITH PT IN ROOM, PT REPORTS HE WILL GO TO A ALF, FIRST CHOICE IS [facility], SECOND CHOICE IS [facility]. CHOICE LETTER SIGNED. CM CALLED [facility], , LEFT MESSAGE FOR GILLIAN REGARDING REFERRAL. CM FAXED REFERRAL TO [facility] AT [phone]. CM WAITING ADMISSION DETERMINATION FROM [facility] FOR REHAB WITH TRANSITION TO PRISON CARE PLACEMENT. Off Premise Service Representative: Jordon Shine Appended by Jordon Shine on 05/29/2019 15:38 PRODUCT TESTER FIBERGLASS: CM CALLED [facility], [phone], SPOKE TO JAMESON, DISCUSSED REFERRAL. CM FAXED REFERRAL TO [facility] AT [phone]. CM WAITING ADMISSION DETERMINATION FROM [facility] AND [facility] FOR REHAB WITH TRANSITION TO LOCAL DELIVERY TRUCK DRIVER CARE PLACEMENT. Off Premise Service Representative: Jordon Shine DCPIA - Discharge Planning Initial Assessment Updated by [id number]: Jordon Shine on 05/29/19 2:38 pm * Is the patient Alert and Oriented? Yes * How many steps to enter\exit or inside your home? * PCP DR. ALBARADO * Pharmacy [facility] * Preadmission Environment Home with Family * ADLs Independent * Equipment Rolling Walker * Other Equipment ROLLATOR WALKER, NO MEDICAL EQUIPMENT PROVIDER PREFERENCE * List name and contact numbers for known caregivers / representatives who currently or will assist patient after discharge: SHARON CAVAZOS, DTR, ALLEN BUTTS, DTR, * Verbal permission to speak to the caregivers and representatives has been obtained from the patient. Yes * Community resources currently utilized None * Please name any agencies selected above. NONE * Additional services required to return to the preadmission environment? Yes * Can the patient safely return to the preadmission environment? Yes * Has this patient been hospitalized within the prior 30 days at any hospital? No Coverage Notice Reviewer: [id number] - Jordon Shine Notice Issued Date-Time: 05/30/2019 12:00 Notice Type: IM Discharge Notice Notice Delivered To: Patient Relationship to Patient: Aircraft Systems Technician Name: Delivery Method: HAND - Hand Delivered Kate Days: Prior Verbal Notification: Recipient Understood Notice: Yes Recipient Signature: Yes Med Rec Note Co-signed by Attending: Coverage Notice Comment: Last DP export: 05/29/19 2:43 Patient Name: DEIRDRE HAYDEN Page [id number] at 1228 All edits/amendments must be made on the electronic document DICTATION DATE: 05/30/191226 SAFETY AND HEALTH CONSULTANT: PERLA 05/30/197 RPT#: [id number] DC DATE: STATUS: ADM IN [facility] [address] [place] [address] END OF REPORT
[2019-05-30 15:00] VITALS: BP 137/72
[2019-05-30 17:32] VITALS: BP 120/89
--- NOTE | 2019-05-30 19:22 | NUR ---
RCVD IN BED WITH TELEVISION ON, ALERT TO PERSON, PLACE AND TIME. SHOWS NO S/S OF ANY ACUTE DISTRESS. ABLE TO VOICE ALL NEEDS. DENIES PAIN, BUT STATES HE STILL FEELS NAUSEATED. BARON IS DRAINING CLEAR YELLOW URINE TO CDS. WILL NOTE ANY CHANGE.
[2019-05-30 20:00] VITALS: BP 110/70
[2019-05-31] VITALS (7 sets, daily range): BP systolic 112–168; BP diastolic 52–103
--- NOTE | 2019-05-31 04:09 | NUR ---
I have reviewed this patient and I concur with the Shift Assessment completed by the Licensed Practical Nurse today this shift.
[2019-05-31 04:15] LABS: BASOPHILS 0 % (0-2); EOSINOPHILS 0.9 % (0-7); HEMATOCRIT 29.2 % (42.0-54.0); HEMOGLOBIN 9.8 g/dL (13.5-17.5); IMMATURE GRANULOCYTES 0.2 % (0-5); LYMPHOCYTES 21.6 % (15-50); MCHC 33.6 g/dL (31.0-37.0); MCV 89.3 fL (80.0-100.0); MEAN PLATELET VOLUME 10.2 fL (7.4-10.4); MONOCYTES 12.4 % (2-11); NEUTROPHILS 64.9 % (40-80); PLATELET COUNT 161 10x3/uL (130-400); RBC 3.27 10x6/uL (4.20-6.10); WBC 4.6 10x3/uL (4.8-10.8)
[2019-05-31 04:31] LABS: ANION GAP 8.3 mmol/L (8-16); CALCIUM 8.3 mg/dL (8.5-10.1); CARBON DIOXIDE 30.1 mmol/L (21.0-32.0); CREATININE - SERUM 2.5 mg/dL (0.6-1.3); MAGNESIUM - SERUM 1.6 mg/dL (1.8-2.4); PHOSPHOROUS 2.9 mg/dL (2.5-4.9)
[2019-05-31 04:41] LABS: POTASSIUM - SERUM 3.4 mmol/L (3.5-5.1)
--- NOTE | 2019-05-31 07:42 | NUR ---
PATIENT IS ALERT AND AWAKE. RECIEVED REPORT FROM OFFGOING NURSE. PATIENT DENIES PAIN AND REPORTS FEELING A LITTLE BETTER TODAY. HE IS SITTING UP IN BED. IV INFUSING ORDERED. BARON IN PLACE.
--- NOTE | 2019-05-31 12:34 | NUR ---
PATIENT FAMILY VISITING. TREATED PATIENT AGAIN FOR NAUSEA. TREATED FOR PAIN AND GIVEN THE PRN MED FOR GOUT. PATIENT DENIES ANY OTHER NEEDS AT THIS TIME. HE HAS VOMITED TWICE TODAY.
--- NOTE | 2019-05-31 14:17 | NUR ---
IV REMOVED FROM RIGHT AC CATHETER INTACT, PATIENT TOLERATED. NEW 22G IV STARTED IN LEFT HAND. PATIENT TOLERATED. INFUSING FLUIDS AND POTASSIUM ORDERED.
--- NOTE | 2019-05-31 19:40 | NUR ---
REPORT FROM ONCOMING SHIFT AND BEDSIDE ROUNDS COMPLETED. PT RESTING WITH NO DISTRESS.
--- NOTE | 2019-05-31 21:17 | NUR ---
BEDTIME MEDS GIVEN.
--- NOTE | 2019-06-01 01:54 | NUR ---
PT RESTING IN BED WITH NO DISTRESS. IV TO LEFT HAND WITH NS @ 100ML/HR INFUSING. IV ABT INFUSED. LORAINE PATENT. CALL LIGHT IN REACH.
[2019-06-01 04:00] VITALS: BP 170/102
--- NOTE | 2019-06-01 05:01 | NUR ---
NOTED SLOW INCREASE IN SBP/DBP. SPOKE WITH PATIENT AND HE STATES HE NORMALLY TAKES BP MEDS. HE ADMITS HE HAS A SLIGHT HEADACHE AT THIS TIME. MEDICATED WITH ULTRAM 100MG ORAL. REVIEWED HOME MEDS AND PT NORMALLY TAKES NORVASC AND LISINOPRIL, BOTH WHICH HAVE BEEN PLACED ON HOLD. WILL FOLLOW UP WITH DAY NURSE FOR MD TO REVIEW MEDS/HOLDS.
[2019-06-01 05:33] LABS: BASOPHILS 0.2 % (0-2); EOSINOPHILS 2.6 % (0-7); HEMOGLOBIN 10.1 g/dL (13.5-17.5); IMMATURE GRANULOCYTES 0.2 % (0-5); MCH 29.7 pg (26.0-34.0); MCHC 32.6 g/dL (31.0-37.0); MCV 91.2 fL (80.0-100.0); MEAN PLATELET VOLUME 10.2 fL (7.4-10.4); MONOCYTES 9.1 % (2-11); NEUTROPHILS 63.9 % (40-80); PLATELET COUNT 185 10x3/uL (130-400); RDW 13.1 % (11.5-14.5)
[2019-06-01 06:38] LABS: ALBUMIN 2.4 g/dL (3.4-5.0); ANION GAP 11.7 mmol/L (8-16); BILIRUBIN - TOTAL 0.33 mg/dL (0.2-1.3); CALCIUM 8.6 mg/dL (8.5-10.1); CREATININE - SERUM 2.3 mg/dL (0.6-1.3); MAGNESIUM - SERUM 1.5 mg/dL (1.8-2.4); PHOSPHOROUS 3.2 mg/dL (2.5-4.9); POTASSIUM - SERUM 3.7 mmol/L (3.5-5.1); PROTEIN - SERUM 6.3 g/dL (6.4-8.2)
--- NOTE | 2019-06-01 07:31 | NUR ---
RECIEVED REPORT. PATIENT IS ALERT , AND RESTING ON HIS LEFT SIDE. HE DENIES ANY NEEDS AT THIS TIME.
[2019-06-01 09:00] VITALS: BP 171/101
[2019-06-01 13:04] VITALS: BP 168/91
--- NOTE | 2019-06-01 17:18 | NUR ---
PATIENT HAS BEEN VOMITING EVERY FEW HOURS ALL DAY. TREATING FOR NAUSEA ORDERED. TREATING FOR HIGH B/P PRN ORDERED. PATIENT IS SITTING UP IN BED AND DENIES ANY NEEDS AT THIS TIME.
[2019-06-01 17:42] VITALS: BP 178/101
--- NOTE | 2019-06-01 19:30 | NUR ---
PT RESTING IN BED WITH EYES CLOSED RR EVEN AND UNLABORED. NO S/S OF DISTRESS. VITALS STABLE. BED LOW CALL LIGHT WITHIN REACH. WILL CONTINUE TO MONITOR.
[2019-06-01 20:46] VITALS: BP 147/87
[2019-06-02] VITALS: BP 143/83
--- NOTE | 2019-06-02 04:21 | NUR ---
I have reviewed this patient and I concur with the Shift Assessment completed by the Licensed Practical Nurse today this shift.
[2019-06-02 04:30] VITALS: BP 158/88
[2019-06-02 08:02] VITALS: BP 131/92
--- NOTE | 2019-06-02 08:53 | NUR ---
AM MEDS GIVEN AT THIS TIME. PT UP TO SIDE OF BED, DENIES ANY NEEDS AT THIS TIME. CALL LIGHT IN REACH, LT HAND IV INFUSING NS AT 100CC/HR. BARON DRAINING SHERWIN URINE TO GRAVITY. CALL LIGHT IN REACH, NAD NOTED, WILL CONTINUE TO MONITOR.
--- NOTE | 2019-06-02 11:33 | NUR ---
BLOOD SUGAR OF 95, NO COVERAGE NEEDED PER S/S. PT NPO FOR PIPIDA SCAN TODAY AT 3. PT UP TO CHAIR, DENIES ANY NEEDS AT THIS TIME. FAMILY AT BEDSIDE, CALL LIGHT IN REACH,NAD NOTED, WILL CONTINUE TO MONITOR.
[2019-06-02 11:56] VITALS: BP 155/99
--- NOTE | 2019-06-02 13:43 | NUR ---
PT RESTING COMFORTABLY IN BED WITH EYES CLOSED, NAD NOTED, CALL LIGHT IN REACH, NAD NOTED, WILL CONTINUE TO MONITOR.
--- NOTE | 2019-06-02 14:19 | NUR ---
Nutrition Follow-up: Continues to have N/V/D. Noted Pipida ordered. GI consulted; possible EGD. Diet: Clear Liquid (x 5 days) Wt: 184# (170# on 05/29) Labs noted: GFR 31 (06/01), Mg 1.5 (06/01), Alb 2.4 (06/01) Meds noted: NS @ 30, Glucotrol, Prednisone, MagOx, Humulin, Zofran -Rec nutrition support 2/2 clear liquids x 5 days and intolerance of PO intake. -Will monitor wt. -RD following.
--- NOTE | 2019-06-02 15:16 | NUR ---
PT TO NUCLEAR MED AT THIS TIME. VIA WHEELCHAIR, NAD NOTED.
--- NOTE | 2019-06-02 16:53 | NUR ---
BLOOD SUGAR OF 117, NO COVERAGE NEEDED PER S/S. PT GOT SELF UP TO SIDE OF BED TO EAT DINNER, DENIES ANY NEEDS AT THIS TIME. CALL LIGHT IN REACH, NILO NOTED.
--- NOTE | 2019-06-02 18:01 | NUR ---
GAVE 4MG OF ZOFRAN AND 0.5MG OF ATIVAN FOR NAUSEA. ALSO GAVE TRAMADOL FOR PAIN LEVEL OF 9/10. PT DENIES ANY OTHER NEEDS AT THIS TIME. CALL LIGHT IN REACH, NAD NOTED.
[2019-06-02 20:30] VITALS: BP 162/89
--- NOTE | 2019-06-02 22:21 | NUR ---
PT ALERT AND ORIENTED X4. RR EVEN AND UNLABORED. NO COMPLAINTS OF N,V THIS PM. PT TO BE NPO AT MIDNIGHT FOR PROCEDURE IN AM WITH DR. DUEÑAS. NO S/S OF DISTRESS AT THIS TIME. BED LOW CALL LIGHT WITHIN REACH. WILL CONTINUE TO MONITOR.
[2019-06-03] VITALS: BP 154/91
--- NOTE | 2019-06-03 02:47 | NUR ---
I have reviewed this patient and I concur with the Shift Assessment completed by the Licensed Practical Nurse today this shift.
[2019-06-03 04:30] VITALS: BP 158/87
[2019-06-03 04:45] LABS: BASOPHILS 0.2 % (0-2); EOSINOPHILS 1.6 % (0-7); HEMATOCRIT 31.5 % (42.0-54.0); HEMOGLOBIN 10.5 g/dL (13.5-17.5); IMMATURE GRANULOCYTES 0.3 % (0-5); LYMPHOCYTES 22.9 % (15-50); MCH 30.1 pg (26.0-34.0); MCHC 33.3 g/dL (31.0-37.0); MCV 90.3 fL (80.0-100.0); MEAN PLATELET VOLUME 9.8 fL (7.4-10.4); MONOCYTES 7.9 % (2-11); NEUTROPHILS 67.1 % (40-80); RBC 3.49 10x6/uL (4.20-6.10); RDW 12.8 % (11.5-14.5); WBC 6.2 10x3/uL (4.8-10.8)
[2019-06-03 04:58] LABS: PLATELET COUNT 241 10x3/uL (130-400)
[2019-06-03 05:13] LABS: ANION GAP 12.1 mmol/L (8-16); CARBON DIOXIDE 25.7 mmol/L (21.0-32.0); CREATININE - SERUM 1.8 mg/dL (0.6-1.3); MAGNESIUM - SERUM 1.5 mg/dL (1.8-2.4); POTASSIUM - SERUM 3.8 mmol/L (3.5-5.1)
[2019-06-03 05:15] LABS: PHOSPHOROUS 2.3 mg/dL (2.5-4.9)
--- NOTE | 2019-06-03 07:00 | NUR ---
RECEIVED REPORT. ASSUMED CARE OF PATIENT. CALL LIGHT WITHIN REACH. PATIENT LYING IN BED WITH EYES OPEN. NO DISTRESS. AWAITING EGD THIS AM. PATIENT IS AWARE OF NPO STATUS.
--- NOTE | 2019-06-03 07:50 | NUR ---
CONSENTS SIGNED AND PLACED ON CHART.
--- NOTE | 2019-06-03 08:47 | MORECARE ---
CASE MANAGEMENT DISCHARGE SUMMARY PATIENT: DEIRDRE HAYDEN UNIT: [id number] ADM DATE: 05/28/19 AGE: 63 : 59 SEX: M ROOM/BED: D.2100 AUTHOR: RAMONEDOC PHYSICIAN: REFERRING PHYSICIAN: ERIC LEGER MD DATE OF SERVICE: 06/03/19 Discharge Plan Patient Name: DEIRDRE HAYDEN Facility: [facility]:[place] : 1955 Planned Disposition: Assisted Facility Anticipated Discharge Date: 05/31/19 Discharge Date: Expected LOS: 3 Initial Reviewer: [id number] Initial Review Date: 05/29/2019 Generated: 06/03/19 9:47 am Comments DCP- Discharge Planning Updated by [id number]: Jordon Shine on 06/03/19 7:[address] Patient Name: DEIRDRE HAYDEN Encounter No: [id number] : 1955 Primary Insurance: MEDICARE A & B Anticipated DC Date: 05-31-2019 Planned Disposition: Assisted Facility External Planned Provider: [facility] Discharge Planning Comments: CM FAXED REFERRAL UPDATE TO [facility] AT [phone]. CM SPOKE TO PT IN ROOM WHO IS STILL WILLING FOR PLACEMENT AT [facility] AT DISCHARGE. [facility] TO ACCEPT FOR REHAB ON 05-31-19 OR AFTER. FAX DISCHARGE INFORMTION TO [facility] AT [phone]. CALL NURSE REPORT TO [facility], . [facility] TO ARRANGE TRANSPORTATION, FAMILY MAY TRANSPORT IF [facility] CANNOT. Cement Crusher Operator: Jordon Shine DCP- Discharge Planning Updated by [id number]: Jordon Shine on 05/30/19 11:[address] Patient Name: DEIRDRE HAYDEN Encounter No: [id number] : 1955 Primary Insurance: MEDICARE A & B Anticipated DC Date: 05-31-2019 Planned Disposition: Assisted Facility External Planned Provider: [facility] Discharge Planning Comments: CM RECEIVED CALL FROM JORY OF [facility], , THEY WILL ACCEPT FOR REHAB TO TRANSITION TO PRISON CARE ON 05-31-19. PATIENT NOTIFIED. IMPORTANT MESSAGE FROM MEDICARE PROVIDED AND EXPLAINED. [facility] TO ACCEPT FOR REHAB ON 05-31-19 OR AFTER. FAX DISCHARGE INFORAMTION TO [facility] AT [phone]. FAX NURSE REPORT TO [facility], . [facility] TO ARRANGE TRANSPORTATION, FAMILY MAY TRANSPORT IF [facility] CANNOT. Cement Crusher Operator: Jordon Shine DCP- Discharge Planning Updated by [id number]: Jordon Shine on 05/29/19 2:[address] Patient Name: DEIRDRE HAYDEN Admission Status: ER Accout number: [id number] Admission Date: 05-28-2019 : 1955 Admission Diagnosis: Attending: ERIC LEGER Current LOS: 1 Anticipated DC Date: 05-31-2019 Planned Disposition: Assisted Facility Primary Insurance: MEDICARE A & B PLANNED EXTERNAL PROVIDER: [facility], MEDICARE REHAB BED Discharge Planning Comments: CM RECEIVED ORDER FOR ASSISTED LIVING, PT CANNOT RETURN TO LIVE WITH DAUGHTERS. CM MET WITH PT AND DAUGHTER IN ROOM TO DISCUSS DISCHARGE PLANNING AND NEEDS.DEIRDRE HAYDEN provided verbal consent to discuss current and ongoing needs with/in the presence of: DAUGHTERLALEN. PT REPORTS LIVING AT HOME INDEPENDENTLY WITH HIS ADULT DAUGHTER. PT HAS ROLLATOR WALKER WITH NO MEDICAL EQUIPMENT PROVIDER PREFERENCE. PT DOES SELF CATH HIMSELF. PT HAS NO OUTSIDE SERVICES ASSISTING IN THE HOME. CM DISCUSSED AVAILABILITY OF HOME HEALTH, REHAB SERVICES AND MEDICAL EQUIPMENT. PT DENIES DISCHARGE NEEDS, CM DISCUSSED ORDER. PT MOSTLY SILENT. PT'S DAUGHTER REPORTS PT DOES NOT QUALIFY FOR MEDICAID DUE TO HOUSEHOLD INCOME WITH PT LIVING THERE DESPITE PT'S ONLY INCOME OF BEING $900 PER MONTH. PT HAS QUALIFIED FOR MEDICAID AT [facility] IN THE PAST WHEN PLACED THERE. FAMILY WAS NOT ABLE TO AFFORD ASSISTED LIVING WITHOUT MEDICAID ASSISTANCE. FAMILY HAD ARRANGED FOR PT TO GO TO [facility] BUT PT HAS REFUSED. CM EXPLAINED THAT GIVEN INFORMATION REGARDING FINANCES CM WAS NOT ABLE TO GET PT INTO ASSISTED LIVING, PT'S INCOME IS NOT SUFFICIENT FOR PRIVATE PAY ASSISTED LIVING OR USP PLACEMENT. CM EXPLAINED THAT CM MAY GET PT INTO REHAB AT NURSING FACILITY AND HE MAY TRANSITION TO PRISON CARE AT THE FACILITY. PT WOULD LIKE TO TALK TO DAUGHTER ALONE AND WILL LET CM KNOW HIS DECISION. CM LEFT CHOICE FORM FOR PT AND FAMILY CONSIDERATION WITH CM CONTACT INFORMATION. CM LATER RECEVIED CALL FROM PT WHO ASKED CM TO RETURN TO ROOM. CM MET WITH PT IN ROOM, PT REPORTS HE WILL GO TO A [facility], FIRST CHOICE IS [facility], SECOND CHOICE IS [facility]. CHOICE LETTER SIGNED. CM CALLED [facility], , LEFT MESSAGE FOR GLILIAN REGARDING REFERRAL. CM FAXED REFERRAL TO [facility] AT [phone]. CM WAITING ADMISSION DETERMINATION FROM [facility] FOR REHAB WITH TRANSITION TO WAITER/WAITRESS ROOM SERVICE CARE PLACEMENT. Cement Crusher Operator: Jordon Shine Appended by Jordon Shine on 05/29/2019 15:38 GREENHOUSE ASSISTANT: CM CALLED [facility], [phone], SPOKE TO JAMESON, DISCUSSED REFERRAL. CM FAXED REFERRAL TO [facility] AT [phone]. CM WAITING ADMISSION DETERMINATION FROM [facility] AND [facility] FOR REHAB WITH TRANSITION TO PRISON CARE PLACEMENT. Cement Crusher Operator: Jordon Shine DCPIA - Discharge Planning Initial Assessment Updated by [id number]: Jordon Shine on 05/29/19 2:38 pm * Is the patient Alert and Oriented? Yes * How many steps to enter\exit or inside your home? * PCP DR. ALBARADO * Pharmacy [facility] * Preadmission Environment Home with Family * ADLs Independent * Equipment Rolling Walker * Other Equipment ROLLATOR WALKER, NO MEDICAL EQUIPMENT PROVIDER PREFERENCE * List name and contact numbers for known caregivers / representatives who currently or will assist patient after discharge: SHARON CAVAZOS, DTR, ALLEN BECKIE, DTR, * Verbal permission to speak to the caregivers and representatives has been obtained from the patient. Yes * Community resources currently utilized None * Please name any agencies selected above. NONE * Additional services required to return to the preadmission environment? Yes * Can the patient safely return to the preadmission environment? Yes * Has this patient been hospitalized within the prior 30 days at any hospital? No Coverage Notice Reviewer: [id number] oRberta Shine Notice Issued Date-Time: 05/30/2019 12:00 Notice Type: IM Discharge Notice Notice Delivered To: Patient Relationship to Patient: Iv Rn Name: Delivery Method: HAND - Hand Delivered Kate Days: Prior Verbal Notification: Recipient Understood Notice: Yes Recipient Signature: Yes Med Rec Note Co-signed by Attending: Coverage Notice Comment: Reviewer: KVNG Shine Notice Issued Date-Time: 05/29/2019 13:40 Notice Type: Patient Choice Letter Notice Delivered To: Patient Relationship to Patient: Iv Rn Name: Delivery Method: HAND - Hand Delivered Kate Days: Prior Verbal Notification: Recipient Understood Notice: Yes Recipient Signature: Yes Med Rec Note Co-signed by Attending: Coverage Notice Comment: [facility] Last DP export: 05/30/19 11:27 Patient Name: DEIRDRE HAYDEN Page [id number] at 0847 All edits/amendments must be made on the electronic document DICTATION DATE: 06/03/19846 NEGATIVE CUTTER: PERLA 06/03/19 RPT#: [id number] DC DATE: STATUS: ADM IN [facility] [address] [place] [address] END OF REPORT
[2019-06-03 10:09] VITALS: BP 186/108
--- NOTE | 2019-06-03 11:35 | NUR ---
FSBS 83. NO INSULIN PER SLIDING SCALE.
--- NOTE | 2019-06-03 11:36 | NUR ---
PATIENT STILL WAITING TO GO FOR EGD.
--- NOTE | 2019-06-03 13:12 | NUR ---
MEDICATED FOR HYPERTENSION AT THIS TIME PER NURSE IN GI LAB. PATIENT IS SCHEDULED AT 3PM.
[2019-06-03 14:12] VITALS: BP 157/106
--- NOTE | 2019-06-03 14:21 | NUR ---
PATIENT PREOPT AT THIS TIME.
--- NOTE | 2019-06-03 14:47 | NUR ---
PATIENT LEFT VIA BED WITH THE GI TEAM AT THIS TIME. PATIENT LEFT FOR EDG. NO DISTRESS UPON LEAVING THE UNIT.
--- NOTE | 2019-06-03 16:22 | NUR ---
FSBS 87. NO INSULIN PER SLIDING SCALE. PATIENT DRINKING LEMON HO-CHUNK SODA AT THIS TIME AND WATCHING
--- NOTE | 2019-06-03 18:39 | NUR ---
RESTING IN BED WITH EYES CLOSED. NO DISTRESS. CALL LIGHT WITHIN REACH.
[2019-06-03 19:00] VITALS: BP 173/92
--- NOTE | 2019-06-03 19:30 | NUR ---
PT RESTING IN BED ALERT AND ORIENTED X4. NO S/S OF DISTRESS. NO S/S OF DISTRESS AT THIS TIME. BED LOW CALL LIGHT WITHIN REACH. WILL CONTINUE TO MONITOR.
[2019-06-03 20:00] VITALS: BP 156/98
[2019-06-04 01:21] VITALS: BP 176/93
[2019-06-04 04:00] VITALS: BP 151/85
[2019-06-04 05:36] LABS: BASOPHILS 0.1 % (0-2); EOSINOPHILS 0.8 % (0-7); HEMATOCRIT 31.9 % (42.0-54.0); HEMOGLOBIN 10.7 g/dL (13.5-17.5); IMMATURE GRANULOCYTES 0.5 % (0-5); LYMPHOCYTES 14.3 % (15-50); MCH 30.2 pg (26.0-34.0); MCHC 33.5 g/dL (31.0-37.0); MCV 90.1 fL (80.0-100.0); MEAN PLATELET VOLUME 10.3 fL (7.4-10.4); MONOCYTES 8.5 % (2-11); NEUTROPHILS 75.8 % (40-80); PLATELET COUNT 282 10x3/uL (130-400); RBC 3.54 10x6/uL (4.20-6.10); RDW 12.7 % (11.5-14.5)
[2019-06-04 05:52] LABS: WBC 9.6 10x3/uL (4.8-10.8)
[2019-06-04 05:53] LABS: ANION GAP 12.5 mmol/L (8-16); CALCIUM 7.9 mg/dL (8.5-10.1); CARBON DIOXIDE 23.2 mmol/L (21.0-32.0); CREATININE - SERUM 1.8 mg/dL (0.6-1.3); POTASSIUM - SERUM 3.7 mmol/L (3.5-5.1)
--- NOTE | 2019-06-04 07:38 | NUR ---
193/103 B/P TREATING WITH PRN MEDICATION
--- NOTE | 2019-06-04 07:48 | NUR ---
RECIEVED REPORT. TREATED PATIENT ORDERED FOR ELEVATED B/P WAITING WITH HIS OTHER MEDICATIONS UNTIL 9:00. PATIENT IS NPO ORDERED SINCE LAST NIGHT AT MIDNIGHT.
[2019-06-04 07:59] VITALS: BP 193/103
--- NOTE | 2019-06-04 10:19 | NUR ---
PATIENT IS SITTING UP IN BED. HE DENIES ANY NEEDS AT THIS TIME. HE HAS GOTTEN UP AND HAD A SHOWER. HE IS GOING FOR HIS GASTRIC EMPTYING SCAN AT 1200. DENIES ANY NEEDS AT THIS TIME.
[2019-06-04 11:23] VITALS: BP 157/96
--- NOTE | 2019-06-04 12:37 | NUR ---
Nutrition Follow-up: EGD yesterday suggesting mild reflux esophagitis, mild gastritis, small sliding hiatal hernia but otherwise normal EGD. GES today. Pt reports tolerating clear liquids yesterday with no vomiting/diarrhea. Diet: NPO No new wt - daily wts ordered Labs noted: GFR 41, K+ 3.7, Glu 96, Ca 7.9, PO4 2.0 Meds noted: Reglan, Pepcid, Glucotrol, NS @ 30, Prednisone, MagOx, Zofran -Rec ADAT to cardiac diabetic as medically feasible following testing. -RD following.
--- NOTE | 2019-06-04 13:46 | NUR ---
PATIENT HAS RETURNED FROM THE GASTRIC EMPTYING SCAN.
--- NOTE | 2019-06-04 14:53 | NUR ---
[facility] CALLED REGARDING THE REFERAL FOR THE PATIENT TO COME THERE WHEN HE IS DISCHARGED.
[2019-06-04 15:47] VITALS: BP 154/104
--- NOTE | 2019-06-04 19:30 | NUR ---
PT RESTING IN BED WITH EYES CLOSED. RESPIRATIONS EVEN AND UNLABORED. VSS. AROUSES WITH VERBAL STIMULI. DENIES PAIN OR NEEDS. HIS BED IS LOW AND CALL LIGHT WITHIN REACH.
[2019-06-04 20:00] VITALS: BP 134/78
[2019-06-05 01:08] VITALS: BP 136/81
[2019-06-05 05:22] LABS: BASOPHILS 0.1 % (0-2); EOSINOPHILS 0.5 % (0-7); HEMATOCRIT 29.7 % (42.0-54.0); HEMOGLOBIN 9.8 g/dL (13.5-17.5); IMMATURE GRANULOCYTES 0.4 % (0-5); LYMPHOCYTES 17.8 % (15-50); MCH 29.8 pg (26.0-34.0); MCV 90.3 fL (80.0-100.0); MEAN PLATELET VOLUME 9.8 fL (7.4-10.4); MONOCYTES 8.3 % (2-11); NEUTROPHILS 72.9 % (40-80); PLATELET COUNT 268 10x3/uL (130-400); RBC 3.29 10x6/uL (4.20-6.10); RDW 12.8 % (11.5-14.5); WBC 8.5 10x3/uL (4.8-10.8)
[2019-06-05 05:32] VITALS: BP 158/81
[2019-06-05 05:45] LABS: ANION GAP 12.2 mmol/L (8-16); CALCIUM 8.1 mg/dL (8.5-10.1); CARBON DIOXIDE 23.7 mmol/L (21.0-32.0); POTASSIUM - SERUM 3.9 mmol/L (3.5-5.1)
[2019-06-05 05:48] LABS: PHOSPHOROUS 2.7 mg/dL (2.5-4.9)
[2019-06-05 10:39] VITALS: BP 148/91
[2019-06-05 13:19] VITALS: BP 164/92
--- NOTE | 2019-06-05 17:57 | MORECARE ---
CASE MANAGEMENT DISCHARGE SUMMARY PATIENT: DEIRDRE HAYDEN UNIT: [id number] ADM DATE: 05/28/19 AGE: 63 : 59 SEX: M ROOM/BED: D.2105 AUTHOR: MI PACK PHYSICIAN: REFERRING PHYSICIAN: ERIC LEGER MD DATE OF SERVICE: 06/05/19 Discharge Plan Patient Name: DEIRDRE HAYDEN Facility: [facility]:[place] : 1955 Planned Disposition: Jail Facility Anticipated Discharge Date: 06/06/19 Discharge Date: Expected LOS: 9 Initial Reviewer: [id number] Initial Review Date: 05/29/2019 Generated: 06/05/19 6:57 pm Comments DCP- Discharge Planning Updated by [id number]: Jordon Shine on 06/05/19 4:[address] Patient Name: DEIRDRE HAYDEN Encounter No: [id number] : 1955 Primary Insurance: MEDICARE A & B Anticipated DC Date: 06-06-2019 Planned Disposition: Jail Facility External Planned Provider: [facility], MEDICARE REHAB BED Discharge Planning Comments: CM RECEIVED ORDER FOR DISCHARGE PLANNING, SPOKE TO PT IN ROOM WHO IS IN AGREEMENT WITH DISCHARGE TO [facility] TOMORROW. IMPORTANT MESSAGE FROM MEDICARE PROVIDED AND EXPALINED. [facility] TO ACCEPT FOR REHAB ON 05-31-19 OR AFTER. FAX DISCHARGE INFORMTION TO [facility] AT [phone]. CALL NURSE REPORT TO [facility], . [facility] TO ARRANGE TRANSPORTATION, FAMILY MAY TRANSPORT IF [facility] CANNOT. Administrative Underwriter: Jordon Shine DCP- Discharge Planning Updated by [id number]: Jordon Shine on 06/03/19 7:[address] Patient Name: DEIRDRE HAYDEN Encounter No: [id number] : 1955 Primary Insurance: MEDICARE A & B Anticipated DC Date: 05-31-2019 Planned Disposition: Jail Facility External Planned Provider: [facility], MEDICARE REHAB BED Discharge Planning Comments: CM FAXED REFERRAL UPDATE TO [facility] AT [phone]. CM SPOKE TO PT IN ROOM WHO IS STILL WILLING FOR PLACEMENT AT [facility] AT DISCHARGE. [facility] TO ACCEPT FOR REHAB ON 05-31-19 OR AFTER. FAX DISCHARGE INFORMTION TO [facility] AT [phone]. CALL NURSE REPORT TO [facility], . [facility] TO ARRANGE TRANSPORTATION, FAMILY MAY TRANSPORT IF [facility] CANNOT. Administrative Underwriter: Jordon Shine SDP- Discharge Planning Updated by [id number]: Jordon Shine on 05/30/19 11:[address] Patient Name: DEIRDRE HAYDEN Encounter No: [id number] : 1955 Primary Insurance: MEDICARE A & B Anticipated DC Date: 05-31-2019 Planned Disposition: Jail Facility External Planned Provider: J[facility]ON [facility] MEDICARE REHAB BED Discharge Planning Comments: CM RECEIVED CALL FROM JORY OF [facility], , THEY WILL ACCEPT FOR REHAB TO TRANSITION TO ASSISTANT PRESS OPERATOR CARE ON 05-31-19. PATIENT NOTIFIED. IMPORTANT MESSAGE FROM MEDICARE PROVIDED AND EXPLAINED. [facility] TO ACCEPT FOR REHAB ON 05-31-19 OR AFTER. FAX DISCHARGE INFORAMTION TO [facility] AT [phone]. FAX NURSE REPORT TO [facility], . [facility] TO ARRANGE TRANSPORTATION, FAMILY MAY TRANSPORT IF [facility] CANNOT. Administrative Underwriter: Jordon Shine [facility]- Discharge Planning Updated by [id number]: Jordon Shine on 05/29/19 2:[address] Patient Name: DEIRDRE HAYDEN Admission Status: ER Accout number: [id number] Admission Date: 05-28-2019 : 1955 Admission Diagnosis: Attending: ERIC LEGER Current LOS: 1 Anticipated DC Date: 05-31-2019 Planned Disposition: Jail Facility Primary Insurance: MEDICARE A & B PLANNED EXTERNAL PROVIDER: [facility] MEDICARE REHAB BED Discharge Planning Comments: CM RECEIVED ORDER FOR ASSISTED LIVING, PT CANNOT RETURN TO LIVE WITH DAUGHTERS. CM MET WITH PT AND DAUGHTER IN ROOM TO DISCUSS DISCHARGE PLANNING AND NEEDS.DEIRDRE HAYDEN provided verbal consent to discuss current and ongoing needs with/in the presence of: DAUGHTER, ALLEN. PT REPORTS LIVING AT HOME INDEPENDENTLY WITH HIS ADULT DAUGHTER. PT HAS ROLLATOR WALKER WITH NO MEDICAL EQUIPMENT PROVIDER PREFERENCE. PT DOES SELF CATH HIMSELF. PT HAS NO OUTSIDE SERVICES ASSISTING IN THE HOME. CM DISCUSSED AVAILABILITY OF HOME HEALTH, REHAB SERVICES AND MEDICAL EQUIPMENT. PT DENIES DISCHARGE NEEDS, CM DISCUSSED ORDER. PT MOSTLY SILENT. PT'S DAUGHTER REPORTS PT DOES NOT QUALIFY FOR MEDICAID DUE TO HOUSEHOLD INCOME WITH PT LIVING THERE DESPITE PT'S ONLY INCOME OF BEING $900 PER MONTH. PT HAS QUALIFIED FOR MEDICAID AT [facility] IN THE PAST WHEN PLACED THERE. FAMILY WAS NOT ABLE TO AFFORD ASSISTED LIVING WITHOUT MEDICAID ASSISTANCE. FAMILY HAD ARRANGED FOR PT TO GO TO [facility] BUT PT HAS REFUSED. CM EXPLAINED THAT GIVEN INFORMATION REGARDING FINANCES CM WAS NOT ABLE TO GET PT INTO ASSISTED LIVING, PT'S INCOME IS NOT SUFFICIENT FOR PRIVATE PAY ASSISTED LIVING OR FPC PLACEMENT. CM EXPLAINED THAT CM MAY GET PT INTO REHAB AT NURSING FACILITY AND HE MAY TRANSITION TO LONGTERM CARE AT THE FACILITY. PT WOULD LIKE TO TALK TO DAUGHTER ALONE AND WILL LET CM KNOW HIS DECISION. CM LEFT CHOICE FORM FOR PT AND FAMILY CONSIDERATION WITH CM CONTACT INFORMATION. CM LATER RECEVIED CALL FROM PT WHO ASKED CM TO RETURN TO ROOM. CM MET WITH PT IN ROOM, PT REPORTS HE WILL GO TO A [facility], FIRST CHOICE IS [facility], SECOND CHOICE IS [facility]. CHOICE LETTER SIGNED. CM CALLED [facility], , LEFT MESSAGE FOR [facility] REGARDING REFERRAL. CM FAXED REFERRAL TO [facility] AT [phone]. CM WAITING ADMISSION DETERMINATION FROM [facility] FOR REHAB WITH TRANSITION TO ASSISTANT PRESS OPERATOR CARE PLACEMENT. Administrative Underwriter: Jordon Shine Appended by Jordon Shine on 05/29/2019 15:38 PHYSICAL OPTICS TEACHER: CM CALLED [facility], [phone], SPOKE TO JAMESON, DISCUSSED REFERRAL. CM FAXED REFERRAL TO [facility] AT [phone]. CM WAITING ADMISSION DETERMINATION FROM [facility] AND [facility] FOR REHAB WITH TRANSITION TO LONGTERM CARE PLACEMENT. Administrative Underwriter: Jordon Shine DCPIA - Discharge Planning Initial Assessment Updated by [id number]: Jordon Shine on 05/29/19 2:38 pm * Is the patient Alert and Oriented? Yes * How many steps to enter\exit or inside your home? * PCP DR. ALBARADO * Pharmacy [facility] * Preadmission Environment Home with Family * ADLs Independent * Equipment Rolling Walker * Other Equipment ROLLATOR WALKER, NO MEDICAL EQUIPMENT PROVIDER PREFERENCE * List name and contact numbers for known caregivers / representatives who currently or will assist patient after discharge: SHARON CAVAZOS DTR, ALLEN BUTTS DTR, * Verbal permission to speak to the caregivers and representatives has been obtained from the patient. Yes * Community resources currently utilized None * Please name any agencies selected above. NONE * Additional services required to return to the preadmission environment? Yes * Can the patient safely return to the preadmission environment? Yes * Has this patient been hospitalized within the prior 30 days at any hospital? No Coverage Notice Reviewer: [id number] Shine Notice Issued Date-Time: 05/30/2019 12:00 Notice Type: IM Discharge Notice Notice Delivered To: Patient Relationship to Patient: Storage Facility Housekeeper Name: Delivery Method: HAND - Hand Delivered Kate Days: Prior Verbal Notification: Recipient Understood Notice: Yes Recipient Signature: Yes Med Rec Note Co-signed by Attending: Coverage Notice Comment: Reviewer: KVNG Shine Notice Issued Date-Time: 05/29/2019 13:40 Notice Type: Patient Choice Letter Notice Delivered To: Patient Relationship to Patient: Storage Facility Housekeeper Name: Delivery Method: HAND - Hand Delivered Kate Days: Prior Verbal Notification: Recipient Understood Notice: Yes Recipient Signature: Yes Med Rec Note Co-signed by Attending: Coverage Notice Comment: [facility] [place] [facility] [place] Reviewer: [id number] Shine Notice Issued Date-Time: 06/05/2019 12:15 Notice Type: IM Discharge Notice Notice Delivered To: Patient Relationship to Patient: Storage Facility Housekeeper Name: Delivery Method: HAND - Hand Delivered Kate Days: Prior Verbal Notification: Recipient Understood Notice: Yes Recipient Signature: Yes Med Rec Note Co-signed by Attending: Coverage Notice Comment: Last DP export: 06/03/19 7:47 Patient Name: DEIRDRE HAYDEN Page [id number] at 1757 All edits/amendments must be made on the electronic document DICTATION DATE: 06/05/191756 PROVIDER CONTRACTING CONSULTANT: PERLA 06/05/191756 RPT#: [id number] SD DATE: STATUS: ADM IN [facility] [address] [place] [address] END OF REPORT
[2019-06-05 18:10] VITALS: BP 131/68
[2019-06-05 21:28] VITALS: BP 135/73
--- NOTE | 2019-06-05 23:00 | NUR ---
PT C/O NAUSEA WITHOUT VOMITING. ZOFRAN GIVEN. PT REPORTS THAT IT HELPED. DENIES FURTHER NEEDS AT THIS TIME. CALL LIGHT WITHIN REACH.
[2019-06-06] VITALS: BP 143/84
[2019-06-06 04:00] VITALS: BP 174/91
[2019-06-06 04:43] LABS: BASOPHILS 0.1 % (0-2); EOSINOPHILS 0.4 % (0-7); HEMATOCRIT 31.5 % (42.0-54.0); HEMOGLOBIN 10.5 g/dL (13.5-17.5); IMMATURE GRANULOCYTES 0.7 % (0-5); LYMPHOCYTES 12.8 % (15-50); MCH 30.2 pg (26.0-34.0); MCHC 33.3 g/dL (31.0-37.0); MCV 90.5 fL (80.0-100.0); MEAN PLATELET VOLUME 9.9 fL (7.4-10.4); MONOCYTES 8.1 % (2-11); NEUTROPHILS 77.9 % (40-80); PLATELET COUNT 274 10x3/uL (130-400); RBC 3.48 10x6/uL (4.20-6.10)
[2019-06-06 04:50] LABS: WBC 10.7 10x3/uL (4.8-10.8)
[2019-06-06 05:00] LABS: ANION GAP 17.6 mmol/L (8-16); CALCIUM 8.7 mg/dL (8.5-10.1); CARBON DIOXIDE 18.4 mmol/L (21.0-32.0)
[2019-06-06 05:10] LABS: CREATININE - SERUM 2.6 mg/dL (0.6-1.3); PHOSPHOROUS 3.4 mg/dL (2.5-4.9)
--- NOTE | 2019-06-06 07:24 | NUR ---
REPORT RECIEVED. PT SITTING UP ON SIDE OF BED. RR EVEN AND UNLABORED. PT HAS A L HAND PIV THAT IS SL, AND A BARON DRAINING URINE. BED LOCKED AND IN LOWEST POSITION,CALL LIGHT WITHIN REACH. WILL CTM
--- NOTE | 2019-06-06 09:49 | MORECARE ---
CASE MANAGEMENT DISCHARGE SUMMARY PATIENT: EDIRDRE HAYDEN UNIT: [id number] ADM DATE: 05/28/19 AGE: 63 : 59 SEX: M ROOM/BED: D.2106 AUTHOR: RAMONE,DOC PHYSICIAN: REFERRING PHYSICIAN: ERIC LEGER MD DATE OF SERVICE: 06/06/19 Discharge Plan Patient Name: DEIRDRE HAYDEN Facility: [facility]:[place] : 1955 Planned Disposition: Snf Facility Anticipated Discharge Date: 06/06/19 Discharge Date: Expected LOS: 9 Initial Reviewer: [id number] Initial Review Date: 05/29/2019 Generated: 06/06/19 10:48 am Comments DCP- Discharge Planning Updated by [id number]: Jordon Shine on 06/06/19 8:[address] Patient Name: DEIRDRE HAYDEN Encounter No: [id number] : 1955 Primary Insurance: MEDICARE A & B Anticipated DC Date: 06-06-2019 Planned Disposition: Snf Facility External Planned Provider: [facility]AS[facility], USP CARE MEDICAID PENDING BED Discharge Planning Comments: CM RECEIVED ORDER FOR DISCHARGE PLANNING, SPOKE TO PT IN ROOM WHO IS IN AGREEMENT WITH DISCHARGE TO [facility] TOMORROW. IMPORTANT MESSAGE FROM MEDICARE PROVIDED AND EXPLAINED. CM CALLED [facility] AND SPOKE TO MICHELLE WHO INFORMED CM THAT THEY ARE TAKING PT INTO [facility] MEDICAID PENDING BED DUE TO NOT HAVING ADEQUATE MEDICARE INFORMATION TO BILL FOR REHAB SERVICES. PT NOR FAMILY HAS PROVIDED THE NEW MEDICARE NUMBER TO THE FACILITY. CM SPOKE TO PT AND DAUGHTER IN ROOM, BOTH IN AGREEMENT WITH DISCHARGE TO [facility] TODAY, DAUGHTER WOULD LIKE TO SPEAK TO THE NURSE PRACTITIONER REGARDING PT'S GOUT AND MEDICATIONS. DAUGHTER WILL TRANSPORT TO [facility] WHEN DISCHARGED. CM NOTIFIED NICOLETTE ROTHMAN AT [facility]. [facility] TO ACCEPT FOR USP CARE ON 05-31-19 OR AFTER. FAX DISCHARGE INFORMTION TO [facility] AT [phone]. CALL NURSE REPORT TO [facility], . FAMILY TO TRANSPORT IF [facility] CANNOT. Separator Operator: Jordon Shine DCP- Discharge Planning Updated by [id number]: Jordon Shine on 06/03/19 7:[address] Patient Name: DEIRDRE HAYDEN Encounter No: [id number] : 1955 Primary Insurance: MEDICARE A & B Anticipated DC Date: 05-31-2019 Planned Disposition: Snf Facility External Planned Provider: [facility], MEDICARE REHAB BED Discharge Planning Comments: CM FAXED REFERRAL UPDATE TO [facility] AT [phone]. CM SPOKE TO PT IN ROOM WHO IS STILL WILLING FOR PLACEMENT AT [facility] AT DISCHARGE. [facility] TO ACCEPT FOR REHAB ON 05-31-19 OR AFTER. FAX DISCHARGE INFORMTION TO [facility] AT [phone]. CALL NURSE REPORT TO [facility], . [facility] TO ARRANGE TRANSPORTATION, FAMILY MAY TRANSPORT IF [facility] CANNOT. Separator Operator: Jordon Shine TXP- Discharge Planning Updated by [id number]: Jordon Shine on 05/30/19 11:[address] Patient Name: DEIRDRE HAYDEN Encounter No: [id number] : 1955 Primary Insurance: MEDICARE A & B Anticipated DC Date: 05-31-2019 Planned Disposition: Snf Facility External Planned Provider: [facility], MEDICARE REHAB BED Discharge Planning Comments: CM RECEIVED CALL FROM JORY OF [facility], , THEY WILL ACCEPT FOR REHAB TO TRANSITION TO USP CARE ON 05-31-19. PATIENT NOTIFIED. IMPORTANT MESSAGE FROM MEDICARE PROVIDED AND EXPLAINED. [facility] TO ACCEPT FOR REHAB ON 05-31-19 OR AFTER. FAX DISCHARGE INFORAMTION TO [facility] AT [phone]. FAX NURSE REPORT TO [facility], . [facility] TO ARRANGE TRANSPORTATION, FAMILY MAY TRANSPORT IF [facility] CANNOT. Separator Operator: Jordon Shine DCP- Discharge Planning Updated by [id number]: Jordon Shine on 05/29/19 2:[address] Patient Name: DEIRDRE HAYDEN Admission Status: ER Accout number: [id number] Admission Date: 05-28-2019 : 1955 Admission Diagnosis: Attending: ERIC LEEGR Current LOS: 1 Anticipated DC Date: 05-31-2019 Planned Disposition: Snf Facility Primary Insurance: MEDICARE A & B PLANNED EXTERNAL PROVIDER: [facility], MEDICARE REHAB BED Discharge Planning Comments: CM RECEIVED ORDER FOR ASSISTED LIVING, PT CANNOT RETURN TO LIVE WITH DAUGHTERS. CM MET WITH PT AND DAUGHTER IN ROOM TO DISCUSS DISCHARGE PLANNING AND NEEDS.DEIRDRE HAYDEN provided verbal consent to discuss current and ongoing needs with/in the presence of: DAUGHTER, ALLEN. PT REPORTS LIVING AT HOME INDEPENDENTLY WITH HIS ADULT DAUGHTER. PT HAS ROLLATOR WALKER WITH NO MEDICAL EQUIPMENT PROVIDER PREFERENCE. PT DOES SELF CATH HIMSELF. PT HAS NO OUTSIDE SERVICES ASSISTING IN THE HOME. CM DISCUSSED AVAILABILITY OF HOME HEALTH, REHAB SERVICES AND MEDICAL EQUIPMENT. PT DENIES DISCHARGE NEEDS, CM DISCUSSED ORDER. PT MOSTLY SILENT. PT'S DAUGHTER REPORTS PT DOES NOT QUALIFY FOR MEDICAID DUE TO HOUSEHOLD INCOME WITH PT LIVING THERE DESPITE PT'S ONLY INCOME OF BEING $900 PER MONTH. PT HAS QUALIFIED FOR MEDICAID AT [facility] IN THE PAST WHEN PLACED THERE. FAMILY WAS NOT ABLE TO AFFORD ASSISTED LIVING WITHOUT MEDICAID ASSISTANCE. FAMILY HAD ARRANGED FOR PT TO GO TO [facility] BUT PT HAS REFUSED. CM EXPLAINED THAT GIVEN INFORMATION REGARDING FINANCES CM WAS NOT ABLE TO GET PT INTO ASSISTED LIVING, PT'S INCOME IS NOT SUFFICIENT FOR PRIVATE PAY ASSISTED LIVING OR LONG TERM PLACEMENT. CM EXPLAINED THAT CM MAY GET PT INTO REHAB AT NURSING FACILITY AND HE MAY TRANSITION TO [facility] AT THE FACILITY. PT WOULD LIKE TO TALK TO DAUGHTER ALONE AND WILL LET CM KNOW HIS DECISION. CM LEFT CHOICE FORM FOR PT AND FAMILY CONSIDERATION WITH CM CONTACT INFORMATION. CM LATER RECEVIED CALL FROM PT WHO ASKED CM TO RETURN TO ROOM. CM MET WITH PT IN ROOM, PT REPORTS HE WILL GO TO A [facility]UST[facility], FIRST CHOICE IS [facility], SECOND CHOICE IS [facility]. CHOICE LETTER SIGNED. CM CALLED [facility], , LEFT MESSAGE FOR [facility] REGARDING REFERRAL. CM FAXED REFERRAL TO [facility] AT [phone]. CM WAITING ADMISSION DETERMINATION FROM [facility] FOR REHAB WITH TRANSITION TO USP CARE PLACEMENT. Separator Operator: Jordon Shine Appended by Jordon Shine on 05/29/2019 15:38 PRODUCTION CONTROL ANALYST: CM CALLED [facility], [phone], SPOKE TO JAMESON, DISCUSSED REFERRAL. CM FAXED REFERRAL TO [facility] AT [phone]. CM WAITING ADMISSION DETERMINATION FROM [facility] AND [facility] FOR REHAB WITH TRANSITION TO USP CARE PLACEMENT. Separator Operator: Jordon Shine DCPIA - Discharge Planning Initial Assessment Updated by [id number]: Jordon Shine on 05/29/19 2:38 pm * Is the patient Alert and Oriented? Yes * How many steps to enter\exit or inside your home? * PCP DR. ALBARADO * Pharmacy [facility] * Preadmission Environment Home with Family * ADLs Independent * Equipment Rolling Walker * Other Equipment ROLLATOR WALKER, NO MEDICAL EQUIPMENT PROVIDER PREFERENCE * List name and contact numbers for known caregivers / representatives who currently or will assist patient after discharge: SHARON CAVAZOS, DTR, ALLEN BUTTS, DTR, * Verbal permission to speak to the caregivers and representatives has been obtained from the patient. Yes * Community resources currently utilized None * Please name any agencies selected above. NONE * Additional services required to return to the preadmission environment? Yes * Can the patient safely return to the preadmission environment? Yes * Has this patient been hospitalized within the prior 30 days at any hospital? No Coverage Notice Reviewer: KVNG Shine Notice Issued Date-Time: 06/05/2019 12:15 Notice Type: IM Discharge Notice Notice Delivered To: Patient Relationship to Patient: Aging Room Operator Name: Delivery Method: HAND - Hand Delivered Kate Days: Prior Verbal Notification: Recipient Understood Notice: Yes Recipient Signature: Yes Med Rec Note Co-signed by Attending: Coverage Notice Comment: Reviewer: KVNG Shine Notice Issued Date-Time: 05/30/2019 12:00 Notice Type: IM Discharge Notice Notice Delivered To: Patient Relationship to Patient: Aging Room Operator Name: Delivery Method: HAND - Hand Delivered Kate Days: Prior Verbal Notification: Recipient Understood Notice: Yes Recipient Signature: Yes Med Rec Note Co-signed by Attending: Coverage Notice Comment: Reviewer: KVNG Shine Notice Issued Date-Time: 05/29/2019 13:40 Notice Type: Patient Choice Letter Notice Delivered To: Patient Relationship to Patient: Aging Room Operator Name: Delivery Method: HAND - Hand Delivered Kate Days: Prior Verbal Notification: Recipient Understood Notice: Yes Recipient Signature: Yes Med Rec Note Co-signed by Attending: Coverage Notice Comment: [facility] [place] Last DP export: 06/05/19 4:57 Patient Name: DEIRDRE HAYDEN Page 26247 at 0949 All edits/amendments must be made on the electronic document DICTATION DATE: 06/06/19947 BUSINESS RISK CONSULTANT: DM 06/06/19947 RPT#: [id number] DC DATE: STATUS: ADM IN [facility] [address] [place] [address] END OF REPORT
[2019-06-06] MEDS ORDERED: Levaquin PO (09:57)
[2019-06-06] MEDS ORDERED: LIPITOR10 MG PO (09:58)
[2019-06-06] MEDS ORDERED: REGLAN5 MG PO (09:58)
[2019-06-06] MEDS ORDERED: ZYLOPRIM100 MG PO (09:59)
--- NOTE | 2019-06-06 11:22 | NUR ---
DC PAPERWORK GONE OVER AND SIGNED WITH PT AND PTS DAUGHTER. REPORT CALLED TO ADAM AT [facility]. PIV REMOVED CATH TIP FULLY INTACT. BARON REMOVED WITH 500CC IN BAG. TELEMETRY REMOVED AND RETURNED TO PIPING DESIGN SPECIALIST. PT ESCORTED TO FRONT ENTRANCE VIA WHEELCHAIR. ALL VALUBLES REMOVED FROM ROOM AT THIS TIME AND SENT WITH PT.
--- NOTE | 2019-06-06 12:08 | MORECARE ---
CASE MANAGEMENT DISCHARGE SUMMARY PATIENT: DEIRDRE HAYDEN UNIT: [id number] ADM DATE: 05/28/19 AGE: 63 : 59 SEX: M ROOM/BED: D.2106 AUTHOR: RAMONE,DOC PHYSICIAN: REFERRING PHYSICIAN: ERIC LEGER MD DATE OF SERVICE: 06/06/19 Discharge Plan Patient Name: DEIRDRE HAYDEN Facility: [facility]:Issue : 1955 Planned Disposition: [facility] Facility Anticipated Discharge Date: 06/06/19 Discharge Date: 06/06/2019 Expected LOS: 9 Initial Reviewer: [id number] Initial Review Date: 05/29/2019 Generated: 06/06/19 1:07 pm Comments DCP- Discharge Planning Updated by [id number]: Jordon Shine on 06/06/19 8:[address] Patient Name: DEIRDRE HAYDEN Encounter No: [id number] : 1955 Primary Insurance: MEDICARE A & B Anticipated DC Date: 06-06-2019 Planned Disposition: [facility] Facility External Planned Provider: [facility], [facility] MEDICAID PENDING BED Discharge Planning Comments: CM RECEIVED ORDER FOR DISCHARGE PLANNING, SPOKE TO PT IN ROOM WHO IS IN AGREEMENT WITH DISCHARGE TO [facility] TOMORROW. IMPORTANT MESSAGE FROM MEDICARE PROVIDED AND EXPLAINED. CM CALLED [facility] AND SPOKE TO MICHELLE WHO INFORMED CM THAT THEY ARE TAKING PT INTO [facility]ERG[facility] TECHNICIAN CARE MEDICAID PENDING BED DUE TO NOT HAVING ADEQUATE MEDICARE INFORMATION TO BILL FOR REHAB SERVICES. PT NOR FAMILY HAS PROVIDED THE NEW MEDICARE NUMBER TO THE FACILITY. CM SPOKE TO PT AND DAUGHTER IN ROOM, BOTH IN AGREEMENT WITH DISCHARGE TO [facility] TODAY, DAUGHTER WOULD LIKE TO SPEAK TO THE NURSE PRACTITIONER REGARDING PT'S GOUT AND MEDICATIONS. DAUGHTER WILL TRANSPORT TO [facility] WHEN DISCHARGED. CM NOTIFIED NICOLETTE ROTHMAN AT NURSES STATION. [facility] TO ACCEPT FOR [facility] CARE ON 05-31-19 OR AFTER. FAX DISCHARGE INFORMTION TO [facility] AT [phone]. CALL NURSE REPORT TO [facility], . FAMILY TO TRANSPORT IF [facility] CANNOT. Waxer Operator: Jordon Shine DCP- Discharge Planning Updated by [id number]: Jordon Shine on 06/03/19 7:[address] Patient Name: DEIRDRE HAYDEN Encounter No: [id number] : 1955 Primary Insurance: MEDICARE A & B Anticipated DC Date: 05-31-2019 Planned Disposition: [facility] Facility External Planned Provider: [facility], [facility]ARE REHAB BED Discharge Planning Comments: CM FAXED REFERRAL UPDATE TO [facility] AT [phone]. CM SPOKE TO PT IN ROOM WHO IS STILL WILLING FOR PLACEMENT AT [facility] AT DISCHARGE. [facility] TO ACCEPT FOR REHAB ON 05-31-19 OR AFTER. FAX DISCHARGE INFORMTION TO [facility] AT [phone]. CALL NURSE REPORT TO [facility], . [facility] TO ARRANGE TRANSPORTATION, FAMILY MAY TRANSPORT IF [facility] CANNOT. Waxer Operator: Jordon Shine [facility]- Discharge Planning Updated by [id number]: Jordon Shine on 05/30/19 11:[address] Patient Name: DEIRDRE HAYDEN Encounter No: [id number] : 1955 Primary Insurance: MEDICARE A & B Anticipated DC Date: 05-31-2019 Planned Disposition: [facility] Facility External Planned Provider: [facility], [facility] B[facility] Discharge Planning Comments: CM RECEIVED CALL FROM JORY OF [facility], , THEY WILL ACCEPT FOR REHAB TO TRANSITION TO [facility] ON 05-31-19. PATIENT NOTIFIED. IMPORTANT MESSAGE FROM MEDICARE PROVIDED AND EXPLAINED. [facility] TO ACCEPT FOR REHAB ON 05-31-19 OR AFTER. FAX DISCHARGE INFORAMTION TO [facility] AT [phone]. FAX NURSE REPORT TO [facility], . [facility] TO ARRANGE TRANSPORTATION, FAMILY MAY TRANSPORT IF [facility] CANNOT. Waxer Operator: Jordon Shine [facility]- Discharge Planning Updated by [id number]: Jordon Shine on 05/29/19 2:[address] Patient Name: DEIRDRE HAYDEN Admission Status: ER Accout number: [id number] Admission Date: 05-28-2019 : 1955 Admission Diagnosis: Attending: ERIC LEGER Current LOS: 1 Anticipated DC Date: 05-31-2019 Planned Disposition: [facility] Facility Primary Insurance: MEDICARE A & B PLANNED EXTERNAL PROVIDER: [facility], MEDICARE REHAB BED Discharge Planning Comments: CM RECEIVED ORDER FOR ASSISTED LIVING, PT CANNOT RETURN TO LIVE WITH DAUGHTERS. CM MET WITH PT AND DAUGHTER IN ROOM TO DISCUSS DISCHARGE PLANNING AND NEEDS.DEIRDRE HAYDEN provided verbal consent to discuss current and ongoing needs with/in the presence of: DAUGHTER, ALLEN. PT REPORTS LIVING AT HOME INDEPENDENTLY WITH HIS ADULT DAUGHTER. PT HAS ROLLATOR WALKER WITH NO MEDICAL EQUIPMENT PROVIDER PREFERENCE. PT DOES SELF CATH HIMSELF. PT HAS NO OUTSIDE SERVICES ASSISTING IN THE HOME. CM DISCUSSED AVAILABILITY OF HOME HEALTH, REHAB SERVICES AND MEDICAL EQUIPMENT. PT DENIES DISCHARGE NEEDS, CM DISCUSSED ORDER. PT MOSTLY SILENT. PT'S DAUGHTER REPORTS PT DOES NOT QUALIFY FOR MEDICAID DUE TO HOUSEHOLD INCOME WITH PT LIVING THERE DESPITE PT'S ONLY INCOME OF BEING $900 PER MONTH. PT HAS QUALIFIED FOR MEDICAID AT [facility] IN THE PAST WHEN PLACED THERE. FAMILY WAS NOT ABLE TO AFFORD ASSISTED LIVING WITHOUT MEDICAID ASSISTANCE. FAMILY HAD ARRANGED FOR PT TO GO TO [facility] BUT PT HAS REFUSED. CM EXPLAINED THAT GIVEN INFORMATION REGARDING FINANCES CM WAS NOT ABLE TO GET PT INTO ASSISTED LIVING, PT'S INCOME IS NOT SUFFICIENT FOR PRIVATE PAY ASSISTED LIVING OR CUSTODIAL PLACEMENT. CM EXPLAINED THAT CM MAY GET PT INTO REHAB AT NURSING FACILITY AND HE MAY TRANSITION TO OUTDOOR EMERGENCY CARE TECHNICIAN CARE AT THE FACILITY. PT WOULD LIKE TO TALK TO DAUGHTER ALONE AND WILL LET CM KNOW HIS DECISION. CM LEFT CHOICE FORM FOR PT AND FAMILY CONSIDERATION WITH CM CONTACT INFORMATION. CM LATER RECEVIED CALL FROM PT WHO ASKED CM TO RETURN TO ROOM. CM MET WITH PT IN ROOM, PT REPORTS HE WILL GO TO A PRISON, FIRST CHOICE IS [facility], SECOND CHOICE IS [facility]. CHOICE LETTER SIGNED. CM CALLED [facility], , LEFT MESSAGE FOR [facility] REGARDING REFERRAL. CM FAXED REFERRAL TO [facility] AT [phone]. CM WAITING ADMISSION DETERMINATION FROM [facility] FOR REHAB WITH TRANSITION TO OUT[facility] EMERGENCY CARE TECHNICIAN CARE PLACEMENT. Waxer Operator: Jordon Shine Appended by Jordon Shine on 05/29/2019 15:38 INTERFACE DEVELOPER: CM CALLED [facility], [phone], SPOKE TO JAMESON, DISCUSSED REFERRAL. CM FAXED REFERRAL TO [facility] AT [phone]. CM WAITING ADMISSION DETERMINATION FROM [facility] AND [facility] FOR REHAB WITH TRANSITION TO OUTDOOR EMERGENCY CARE TECHNICIAN CARE PLACEMENT. Waxer Operator: Jordon Shine [facility] - Discharge Planning Initial Assessment Updated by [id number]: Jordon Shine on 05/29/19 2:38 pm * Is the patient Alert and Oriented? Yes * How many steps to enter\exit or inside your home? * PCP DR. ALBARADO * Pharmacy [facility] * Preadmission Environment Home with Family * ADLs Independent * Equipment Rolling Walker * Other Equipment ROLLATOR WALKER, NO MEDICAL EQUIPMENT PROVIDER PREFERENCE * List name and contact numbers for known caregivers / representatives who currently or will assist patient after discharge: SHARON MACY, DTR, ALLEN BUTTS, DTR, * Verbal permission to speak to the caregivers and representatives has been obtained from the patient. Yes * Community resources currently utilized None * Please name any agencies selected above. NONE * Additional services required to return to the preadmission environment? Yes * Can the patient safely return to the preadmission environment? Yes * Has this patient been hospitalized within the prior 30 days at any hospital? No External Providers External Provider: [facility] Next Contact Date: 05/29/2019 Service Request Date: Service Type: Resolution: Reviewer: Comments: Coverage Notice Reviewer: [id number] Shine Notice Issued Date-Time: 06/05/2019 12:15 Notice Type: IM Discharge Notice Notice Delivered To: Patient Relationship to Patient: Director Of Architecture Name: Delivery Method: HAND - Hand Delivered Kate Days: Prior Verbal Notification: Recipient Understood Notice: Yes Recipient Signature: Yes Med Rec Note Co-signed by Attending: Coverage Notice Comment: Reviewer: KVNG Shine Notice Issued Date-Time: 05/30/2019 12:00 Notice Type: IM Discharge Notice Notice Delivered To: Patient Relationship to Patient: Director Of Architecture Name: Delivery Method: HAND - Hand Delivered Kate Days: Prior Verbal Notification: Recipient Understood Notice: Yes Recipient Signature: Yes Med Rec Note Co-signed by Attending: Coverage Notice Comment: Reviewer: [id number] Shine Notice Issued Date-Time: 05/29/2019 13:40 Notice Type: Patient Choice Letter Notice Delivered To: Patient Relationship to Patient: Director Of Architecture Name: Delivery Method: HAND - Hand Delivered Kate Days: Prior Verbal Notification: Recipient Understood Notice: Yes Recipient Signature: Yes Med Rec Note Co-signed by Attending: Coverage Notice Comment: [facility] DP export: 06/06/19 8:49 Patient Name: DEIRDRE HAYDEN Page [phone] at 1208 All edits/amendments must be made on the electronic document DICTATION DATE: 06/06/191206 CLEANER LABORATORY EQUIPMENT: PERLA 06/06/191206 RPT#: [id number] DC DATE:06/06/19 STATUS: DIS IN [facility] [address] [place] [address] END OF REPORT
--- NOTE | 2019-06-06 12:16 | MORECARE ---
CASE MANAGEMENT DISCHARGE SUMMARY PATIENT: DEIRDRE HAYDEN UNIT: [id number] ADM DATE: 05/28/19 AGE: 63 : 59 SEX: M ROOM/BED: D.2106 AUTHOR: RAMONEDOC PHYSICIAN: REFERRING PHYSICIAN: ERIC LEGER MD DATE OF SERVICE: 06/06/19 Discharge Plan Patient Name: DEIRDRE HAYDEN Facility: [facility]:[place] : 1955 Planned Disposition: Group Home Facility Anticipated Discharge Date: 06/06/19 Discharge Date: 06/06/2019 Expected LOS: 9 Initial Reviewer: [id number] Initial Review Date: 05/29/2019 Generated: 06/06/19 1:16 pm Comments DCP- Discharge Planning Updated by [id number]: Jordon Shine on 06/06/19 11:[address] Patient Name: DEIRDRE HAYDEN Encounter No: [id number] : 1955 Primary Insurance: MEDICARE A & B Anticipated DC Date: 06-06-2019 Planned Disposition: Group Home Facility External Planned Provider: [facility] MEDICAID BED DCP follow-up note: CM NOTIFIED MICHELLE OF [facility] WHO WILL ACCEPT FOR ANIMAL TRAPPER CARE. CM FAXED DISCHARGE INFORMTION TO [facility] AT [phone]. CALL NURSE REPORT TO [facility], . FAMILY TO TRANSPORT. Industrial Relations Officer: Jordon Shine DCP- Discharge Planning Updated by [id number]: Jordon Shine on 06/06/19 8:[address] Patient Name: DEIRDRE HAYDEN Encounter No: [id number] : 1955 Primary Insurance: MEDICARE A & B Anticipated DC Date: 06-06-2019 Planned Disposition: Group Home Facility External Planned Provider: [facility] MEDICAID PENDING BED Discharge Planning Comments: CM RECEIVED ORDER FOR DISCHARGE PLANNING, SPOKE TO PT IN ROOM WHO IS IN AGREEMENT WITH DISCHARGE TO [facility] TOMORROW. IMPORTANT MESSAGE FROM MEDICARE PROVIDED AND EXPLAINED. CM CALLED [facility] AND SPOKE TO MICHELLE WHO INFORMED CM THAT THEY ARE TAKING PT INTO ANIMAL TRAPPER CARE MEDICAID PENDING BED DUE TO NOT HAVING ADEQUATE MEDICARE INFORMATION TO BILL FOR REHAB SERVICES. PT NOR FAMILY HAS PROVIDED THE NEW MEDICARE NUMBER TO THE FACILITY. CM SPOKE TO PT AND DAUGHTER IN ROOM, BOTH IN AGREEMENT WITH DISCHARGE TO [facility] TODAY, DAUGHTER WOULD LIKE TO SPEAK TO THE NURSE PRACTITIONER REGARDING PT'S GOUT AND MEDICATIONS. DAUGHTER WILL TRANSPORT TO [facility] WHEN DISCHARGED. CM NOTIFIED NICOLETTE ROTHMAN AT NURSES ST[facility]. [facility] TO ACCEPT FOR PRISON CARE ON 05-31-19 OR AFTER. FAX DISCHARGE INFORMTION TO [facility] AT [phone]. CALL NURSE REPORT TO [facility], . FAMILY TO TRANSPORT IF [facility] CANNOT. Industrial Relations Officer: Jordon Shine [facility]- Discharge Planning Updated by [id number]: Jordon Shine on 06/03/19 7:[address] Patient Name: DEIRDRE HAYDEN Encounter No: [id number] : 1955 Primary Insurance: MEDICARE A & B Anticipated DC Date: 05-31-2019 Planned Disposition: Group Home Facility External Planned Provider: [facility] Discharge Planning Comments: CM FAXED REFERRAL UPDATE TO [facility] AT [phone]. CM SPOKE TO PT IN ROOM WHO IS STILL WILLING FOR PLACEMENT AT [facility] AT DISCHARGE. [facility] TO ACCEPT FOR REHAB ON 05-31-19 OR AFTER. FAX DISCHARGE INFORMTION TO [facility] AT [phone]. CALL NURSE REPORT TO [facility], . [facility] TO ARRANGE TRANSPORTATION, FAMILY MAY TRANSPORT IF [facility] CANNOT. Industrial Relations Officer: Jordon Shine [facility]- Discharge Planning Updated by [id number]: Jordon Shine on 05/30/19 11:[address] Patient Name: DEIRDRE HAYDEN Encounter No: [id number] : 1955 Primary Insurance: MEDICARE A & B Anticipated DC Date: 05-31-2019 Planned Disposition: Group Home Facility External Planned Provider: [facility], MEDICARE REHAB BED Discharge Planning Comments: CM RECEIVED CALL FROM [facility] OF [facility], , THEY WILL ACCEPT FOR REHAB TO TRANSITION TO ANIMAL TRAPPER CARE ON 05-31-19. PATIENT NOTIFIED. IMPORTANT MESSAGE FROM MEDICARE PROVIDED AND EXPLAINED. [facility] TO ACCEPT FOR REHAB ON 05-31-19 OR AFTER. FAX DISCHARGE INFORAMTION TO [facility] AT [phone]. FAX NURSE REPORT TO [facility], . [facility] TO ARRANGE TRANSPORTATION, FAMILY MAY TRANSPORT IF [facility] CANNOT. Industrial Relations Officer: Jordon Shine DCP- Discharge Planning Updated by [id number]: Jordon Shine on 05/29/19 2:[address] Patient Name: DEIRDRE HAYDEN Admission Status: ER Accout number: [id number] Admission Date: 05-28-2019 : 1955 Admission Diagnosis: Attending: ERIC LEGER Current LOS: 1 Anticipated DC Date: 05-31-2019 Planned Disposition: Group Home Facility Primary Insurance: MEDICARE A & B PLANNED EXTERNAL PROVIDER: [facility] RE[facility]AB B[facility] Discharge Planning Comments: CM RECEIVED ORDER FOR ASSISTED LIVING, PT CANNOT RETURN TO LIVE WITH DAUGHTERS. CM MET WITH PT AND DAUGHTER IN ROOM TO DISCUSS DISCHARGE PLANNING AND NEEDS.DEIRDRE HAYDEN provided verbal consent to discuss current and ongoing needs with/in the presence of: DAUGHTERALLEN. PT REPORTS LIVING AT HOME INDEPENDENTLY WITH HIS ADULT DAUGHTER. PT HAS ROLLATOR WALKER WITH NO MEDICAL EQUIPMENT PROVIDER PREFERENCE. PT DOES SELF CATH HIMSELF. PT HAS NO OUTSIDE SERVICES ASSISTING IN THE HOME. CM DISCUSSED AVAILABILITY OF HOME HEALTH, REHAB SERVICES AND MEDICAL EQUIPMENT. PT DENIES DISCHARGE NEEDS, CM DISCUSSED ORDER. PT MOSTLY SILENT. PT'S DAUGHTER REPORTS PT DOES NOT QUALIFY FOR MEDICAID DUE TO HOUSEHOLD INCOME WITH PT LIVING THERE DESPITE PT'S ONLY INCOME OF BEING $900 PER MONTH. PT HAS QUALIFIED FOR MEDICAID AT [facility] IN THE PAST WHEN PLACED THERE. FAMILY WAS NOT ABLE TO AFFORD ASSISTED LIVING WITHOUT MEDICAID ASSISTANCE. FAMILY HAD ARRANGED FOR PT TO GO TO [facility] BUT PT HAS REFUSED. CM EXPLAINED THAT GIVEN INFORMATION REGARDING FINANCES CM WAS NOT ABLE TO GET PT INTO ASSISTED LIVING, PT'S INCOME IS NOT SUFFICIENT FOR PRIVATE PAY ASSISTED LIVING OR HALF-WAY PLACEMENT. CM EXPLAINED THAT CM MAY GET PT INTO REHAB AT NURSING FACILITY AND HE MAY TRANSITION TO ANIMAL TRAPPER CARE AT THE FACILITY. PT WOULD LIKE TO TALK TO DAUGHTER ALONE AND WILL LET CM KNOW HIS DECISION. CM LEFT CHOICE FORM FOR PT AND FAMILY CONSIDERATION WITH CM CONTACT INFORMATION. CM LATER RECEVIED CALL FROM PT WHO ASKED CM TO RETURN TO ROOM. CM MET WITH PT IN ROOM, PT REPORTS HE WILL GO TO A CUSTODIAL, FIRST CHOICE IS [facility], SECOND CHOICE IS [facility]. CHOICE LETTER SIGNED. CM CALLED [facility], , LEFT MESSAGE FOR [facility] REGARDING REFERRAL. CM FAXED REFERRAL TO [facility] AT [phone]. CM WAITING ADMISSION DETERMINATION FROM [facility] FOR REHAB WITH TRANSITION TO ANIMAL TRAPPER CARE PLACEMENT. Industrial Relations Officer: Jordon Shine Appended by Jordon Shine on 05/29/2019 15:38 COIN ROLLING MACHINE OPERATOR: CM CALLED [facility], [phone], SPOKE TO JAMESON, DISCUSSED REFERRAL. CM FAXED REFERRAL TO [facility] AT [phone]. CM WAITING ADMISSION DETERMINATION FROM [facility] AND [facility] FOR REHAB WITH TRANSITION TO ANIMAL TRAPPER CARE PLACEMENT. Industrial Relations Officer: Jordon Shine [facility] - Discharge Planning Initial Assessment Updated by [email or web address]: Jordon Shine on 05/29/19 2:38 pm * Is the patient Alert and Oriented? Yes * How many steps to enter\exit or inside your home? * PCP DR. ALBARADO * Pharmacy [facility] * Preadmission Environment Home with Family * ADLs Independent * Equipment Rolling Walker * Other Equipment ROLLATOR WALKER, NO MEDICAL EQUIPMENT PROVIDER PREFERENCE * List name and contact numbers for known caregivers / representatives who currently or will assist patient after discharge: SHARON CAVAZOS, DTR, ALLEN BUTTS, DTR, * Verbal permission to speak to the caregivers and representatives has been obtained from the patient. Yes * Community resources currently utilized None * Please name any agencies selected above. NONE * Additional services required to return to the preadmission environment? Yes * Can the patient safely return to the preadmission environment? Yes * Has this patient been hospitalized within the prior 30 days at any hospital? No Coverage Notice Reviewer: [id number] Roberta Shine Notice Issued Date-Time: 06/05/2019 12:15 Notice Type: IM Discharge Notice Notice Delivered To: Patient Relationship to Patient: Digital Marketing Intern Name: Delivery Method: HAND - Hand Delivered Kate Days: Prior Verbal Notification: Recipient Understood Notice: Yes Recipient Signature: Yes Med Rec Note Co-signed by Attending: Coverage Notice Comment: Reviewer: [id number] Roberta Shine Notice Issued Date-Time: 05/30/2019 12:00 Notice Type: IM Discharge Notice Notice Delivered To: Patient Relationship to Patient: Digital Marketing Intern Name: Delivery Method: HAND - Hand Delivered Kate Days: Prior Verbal Notification: Recipient Understood Notice: Yes Recipient Signature: Yes Med Rec Note Co-signed by Attending: Coverage Notice Comment: Reviewer: [id number] Roberta Shine Notice Issued Date-Time: 05/29/2019 13:40 Notice Type: Patient Choice Letter Notice Delivered To: Patient Relationship to Patient: Digital Marketing Intern Name: Delivery Method: HAND - Hand Delivered Kate Days: Prior Verbal Notification: Recipient Understood Notice: Yes Recipient Signature: Yes Med Rec Note Co-signed by Attending: Coverage Notice Comment: [facility] [place] [facility] Last DP export: 06/06/19 11:08 Patient Name: DEIRDRE HAYDEN Page [id number] at 1216 All edits/amendments must be made on the electronic document DICTATION DATE: 06/06/19 1216 [employer]ACLE DATABASE CONSULTANT: PERLA 06/06/19 1216 RPT#: [id number] DC DATE:06/06/19 STATUS: DIS IN [facility] [address] [place] [address] END OF REPORT
--- NOTE | 2019-06-12 07:24 | DS ---
PATIENT:DEIRDRE HAYDEN :[birth year] MEDICAL RECORD: [id number] DISCHARGE SUMMARY ADMISSION DATE: 05/28/19 DISCHARGE DATE: 06/06/19 HISTORY OF PRESENT ILLNESS: Mr. Hayden is a 63-year-old white male status post renal transplant followed by me on a long-term basis. He has been stable as an outpatient with no recent hospitalizations, seen by me in the office 2 weeks ago and stable, admitted with recurrent nausea and vomiting. HOSPITAL COURSE: The patient had insertion of a Hooper catheter since he is on self caths at home. Initial urine culture was positive for gram-negative ntao and was treated with IV followed by oral antibiotic therapy. Also, during this time, he was seen by GI and he did an EGD with minimal findings other than some mild gastritis. His CT of his abdomen was essentially negative other than the gallbladder sludge, had a PIPIDA scan done that was normal. Following that, had a gastric emptying scan done that was positive and was begun on Reglan therapy. With antibiotic therapy and symptomatic therapy of his nausea, vomiting and Reglan, his symptoms abated. During this time, he was hydrated. His last creatinine was in the 2-2-3 range, which is at his baseline. At the time of discharge, he was stable. He will transition to rehab at the sn[facility]. DISCHARGE DIAGNOSES: 1. Recurrent nausea and vomiting. 2. Urinary tract infection. 3. Gastroparesis, on Reglan therapy. 4. Status post renal transplant. 5. Chronic neurogenic bladder with recurrent self-caths. PLAN: The patient will be discharged to rehabilitation at the snf. He will resume self-caths, his Hooper will be removed. He will continue his current medication regimen and his current regular diet. DISCHARGE MEDICATIONS: Will be Reglan 5 a.c. and at bedtime, Levaquin 250 daily times 5 days. He will be on acidophilus than 1 daily. He will be on amlodipine 2.5 b.i.d., Ultram 100 p.r.n., allopurinol 100 mg daily, colchicine 0.6 daily, glipizide 5 mg daily, Prograf 4 mg b.i.d., prednisone 10 mg daily, Mag-Ox 400 mg daily, Tegretol 200 b.i.d., Lipitor 10 mg daily, Eliquis 5 mg daily. I will follow up with him in the office in 1-2 weeks. TRANSINT:[id number] Voice Confirmation ID: [id number] DOCUMENT ID: [id number] TIGRE ALBARADO MD at 0724 CC: [id number] DICTATION DATE: 06/06/19 0804 APPLICATION PACKAGER: 06/07/19 0114 DIS IN 06/06/19 [address] [place] [address]
== END 2019-06-06 11:25 | DRG 683 ==
LOC: D.ER 17:59 → D.M2 19:50
PROVIDERS: Family Medicine; Internal Medicine Gastroenterology; Internal Medicine Nephrology; ADMIT Internal Medicine Nephrology; ATTEND Internal Medicine Nephrology
PROC: 0DB68ZX Excision of Stomach, Via Natural or Artificial Opening Endoscopic, Diagnostic (ICD-10-PCS; principal; 2019-06-03 15:35)
DX: N17.9 Acute kidney failure, unspecified (principal); Z94.0 Kidney transplant status; N39.0 Urinary tract infection, site not specified; E11.22 Type 2 diabetes mellitus with diabetic chronic kidney disease; I12.9 Hypertensive chronic kidney disease with stage 1 through stage 4 chronic kidney disease, or unspecified chronic kidney disease; N18.9 Chronic kidney disease, unspecified; R19.7 Diarrhea, unspecified; N31.9 Neuromuscular dysfunction of bladder, unspecified; Z79.01 Long term (current) use of anticoagulants; E83.42 Hypomagnesemia; M10.9 Gout, unspecified; I25.10 Atherosclerotic heart disease of native coronary artery without angina pectoris; E86.0 Dehydration; K57.90 Diverticulosis of intestine, part unspecified, without perforation or abscess without bleeding; K21.0 Gastro-esophageal reflux disease with esophagitis; K29.70 Gastritis, unspecified, without bleeding; K44.9 Diaphragmatic hernia without obstruction or gangrene; K31.84 Gastroparesis; Z86.718 Personal history of other venous thrombosis and embolism

== ENCOUNTER → 2020-09-01 08:21 | Outpatient (CLI) | payer MEDICARE ==
[2019-05-29 13:11] VITALS: BMI 25.8
--- NOTE | ~2020-09-01 | ST ---
PATIENT:DEIRDRE HAYDEN MEDICAL RECORD: [id number] SEX: M LOCATION:[facility] ORDER #: ADMISSION DATE: 09/01/20 AGE OF PATIENT: 64 REFERRING PHYSICIAN: INTERPRETING PHYSICIAN: SOLOMON HUNT MD DATE OF SERVICE: 09/01/2020 NUCLEAR STRESS TEST GATED IMAGES: Gated is abnormal with abnormal wall motion and thickening of the anterior base down to the anterior apex and inferior apical region. LV function is reduced. Calculated EF 25%. SPECT IMAGING: SPECT imaging was performed. Short axis view: Short axis view shows a fixed defect from the mid anterior wall down to the anterior apical regions. Horizontal axis: This is confirmed in the horizontal axis with a fixed defect along the anterior base to the anterior apex and apical region. Vertical axis: Vertical axis shows a fixed apical defect. FINAL IMPRESSION: 1. Abnormal gated with abnormal motion. Abnormal EF 25%. 2. Abnormal SPECT imaging with a fixed defect seen in all 3 views. FINAL IMPRESSION: The scan is consistent with underlying coronary artery disease with resultant ischemic cardiomyopathy, no reversible ischemia seen here. Optimization of medical therapy for coronary disease and cardiomyopathy is recommended. TRANSINT:[id number] Voice Confirmation ID: [id number] DOCUMENT ID: [id number] SOLOMON HUNT MD CC: [id number] DICTATION DATE: 09/02/20 1314 IMPLEMENTATION CONSULTANT: 09/03/20 0449 DEP CLI 09/01/20 [place] [id number] [place] [id number]
--- NOTE | ~2020-09-01 | EC ---
PATIENT:DEIRDRE HAYDEN DATE OF SERVICE: 09/01/20 SEX: M MEDICAL RECORD: [id number] DATE OF : 59 LOCATION:[facility]FORM[facility]LY [facility] AGE OF PATIENT: 64 ADMISSION DATE: 09/01/20 REFERRING PHYSICIAN: INTERPRETING PHYSICIAN: SOLOMON HUNT MD ECHOCARDIOGRAM REPORT ECHO CHARGES 4 ECHO COMPLETE Date: 09/01/20 CLINICAL DIAGNOSIS: HEART MURMUR HX OF CAD/CABG ECHOCARDIOGRAPHIC MEASUREMENTS (adult normal given) AC root (d.<3.7cm) 4.2 cm LV Septum d (<1.2 cm> 1.4 cm Valve Excursion 2.0 cm LV Septum (systole) 1.7 cm Left Atria (s.<4.0cm> 4.8 cm LVPW d(<1.2cm) 1.8 cm RV (d.<2.3cm) 3.8 cm LVPW (sytole) 1.9 cm LV diastole(<5.6CM) 7.6 cm MV E-F(>70mm/sec) cm LV systole 6.6 cm LVOT Diameter 2.2 cm MV exc.(>10mm) 0.7 cm Est.ejection fraction (50-75%) % DOPPLER: LVIT cm/sec A 101.0cm/sec E 88.0 cm/sec LA cm/sec RVSP 19 mmHg LVOT 124 cm/sec AOP1/2T m/s Asc. Ao 143 cm/sec RVOT 110 cm/sec RA cm/sec PA 165 cm/sec AV Gradient Peak 8.13 mmHg AV Mean 4.64 mmHg AV Area 3.3 cm MV Gradient Peak 5.47 mmHg MV Mean 2.50 mmHg MV Area cm COMMENTS: Deputy Editor In Chief: 2 SEVEN LO Food Service Attendant: 3 Dr. Villegas TAPE# PACS Pericardial Effusion N DATE OF SERVICE: Adequate 2D, color-flow imaging, spectral Doppler, and M-Mode FINDINGS: LVH is present. LV internal dimension is dilated. There is hypokinesis of the anterior apex region. Overall, LV function reduced 40% to 45%. Aortic valve is sclerosed without evidence of stenosis by Doppler interrogation. Left atrium is dilated at 4.8 cm. Mitral valve shows no prolapse. Mild MR. Right side is grossly normal. Trace TR. ECHOCARDIOGRAM REPORT [id number] DEIRDRE HAYDEN TRANSINT:[id number] Voice Confirmation ID: [id number] DOCUMENT ID: [id number] SOLOMON HUNT MD CC: [id number] DICTATION DATE: 09/02/20 1357 FLUXER: 09/02/20 1603 DEP CLI 09/01/20 [place] [id number]
[~2020-09-01 08:21] MED LIST changes: +LISINOPRIL20 MG PO; +Levaquin PO; +REGLAN5 MG PO
== END | disposition home or self-care (01) ==
LOC: D.HCCARDIO 08:21 → D.HCCECHO 10:00
PROVIDERS: ATTEND Internal Medicine Interventional Cardiology
DX: I20.9 Angina pectoris, unspecified (principal); R01.1 Cardiac murmur, unspecified

== ENCOUNTER 2020-09-17 07:23 | Day surgery (SDC) | payer MEDICARE ==
[~2020-09-17] VITALS: Ht 172.7 cm; Wt 80.3 kg
[2020-09-17 07:51] LABS: BASOPHILS 0.1 % (0-2); EOSINOPHILS 1.9 % (0-7); HEMATOCRIT 32.7 % (42.0-54.0); HEMOGLOBIN 10.6 g/dL (13.5-17.5); IMMATURE GRANULOCYTES 0.2 % (0-5); LYMPHOCYTE ABS# 1.39 10x3/uL (1.32-3.57); LYMPHOCYTES 16.4 % (15-50); MCH 31.7 pg (26.0-34.0); MCHC 32.4 g/dL (31.0-37.0); MCV 97.9 fL (80.0-100.0); MEAN PLATELET VOLUME 10.3 fL (7.4-10.4); MONOCYTES 8.4 % (2-11); NEUTROPHIL ABS# 6.19 10x3/uL (1.78-5.38); PLATELET COUNT 212 10x3/uL (130-400); RBC 3.34 10x6/uL (4.20-6.10); RDW 14.1 % (11.5-14.5); WBC 8.5 10x3/uL (4.8-10.8)
[2020-09-17 08:01] LABS: ANION GAP 23.2 mmol/L (8-16); CARBON DIOXIDE 14.9 mmol/L (21.0-32.0); CREATININE - SERUM 5.7 mg/dL (0.6-1.3); POTASSIUM - SERUM 5.1 mmol/L (3.5-5.1)
[2020-09-17] MEDS ORDERED: SODIUM BICARBO325 MG PO (10:54)
[2020-09-17 11:02] VITALS: BP 153/102; Ht 172.7 cm; Wt 80.3 kg
--- NOTE | 2020-09-17 17:09 | NUR ---
DC'D IV WITH CATH TIP INTACT. DISCHARGE INSTRUCTIONS SIGNED BY PT AND COPY PROVIDED FOR USP. BRENDA BRADLEY AT BEDSIDE ASSISTING PT TO GET DRESSED. 1720 PT DISCHARGED VIA W/C, ACCOMPANIED BY BRENDA BRADLEY, TO [facility]SP[facility] WITH [facility]. ALL BELONGINGS WITH PT.
--- NOTE | 2020-10-05 18:26 | OP ---
PATIENT NAME: DEIRDRE HARDWICK MEDICAL RECORD: [id number] :59 LOCATION:D.FORMERLY [facility] ADMISSION DATE: SURGEON: PURNIMA CHIU MD DATE OF OPERATION: 09/17/2020 The patient is an outpatient, referred by Dr. Leger. DIAGNOSIS: Chronic kidney disease stage V expected to require dialysis in the near future. SURGEON: Purnima Chiu MD ANESTHESIA: Regional nerve block plus general anesthetic by LMA per ADOBE LAYER HELPER. SURGEON: Purnima Chiu MD PREOPERATIVE NOTE: Mr. Hardwick is a 64-year-old male patient with chronic kidney insufficiency, who has been referred to me by Dr. Leger for dialysis access. DESCRIPTION OF PROCEDURE: Under anesthesia, the patient was prepped and draped in a sterile manner. He was examined first with ultrasound and I elected to go ahead with the planned prosthetic AV graft. Two incisions were made, one on the medial aspect of the arm just above the antecubital space, the other on the medial aspect of the arm just below the axilla. The basilic vein was exposed in the upper incision, it was controlled with Silastic loops as needed and the brachial artery and the distal incision was exposed and controlled with Silastic loops. The vessels were treated with topical papaverine intermittently. I chose a 4-7 taper Propaten Intering PTFE graft. The arterial end was slightly shortened and bevelled. The artery was occluded, opened, flushed proximally and distally with heparin solution and then the graft was anastomosed end of graft to side of artery with running 6-0 Prolene. The graft and artery was then again flushed with heparinized saline. The suture line was hemostatic upon release of the occluding clamps and loops. The graft was pulled through a very superficial subcutaneous arch shaped tunnel to the proximal incision where the graft was then shortened and bevelled and the vein occluded and opened, flushed with heparinized saline and then an end of graft to side of vein anastomosis was done again with running 6-0 Prolene. On completion of the anastomosis and release of the occluding loops and clamps, the suture line was hemostatic. An excellent flow developed immediately and the new AV graft. The wounds were irrigated with saline. Hemostasis was obtained with electrocautery. The wounds were closed with interrupted 3-0 Vicryl and running intracuticular 4-0 Stratafix and Dermabond glue. They were dressed with Maxorb AG, Tegaderm, and Cavilon skin prep. The patient was awakened and taken to the recovery room in stable condition. PLAN: We will discontinue to mcc today when he meets criteria. He will be continuing all of the same medications as diet. We will wait to resume his Eliquis until 09/20/2020. He was given a prescription for tramadol 50 mg 1 p.o. q.4 hours p.r.n. pain and an appointment to return to see me in my office next week. Blood loss during the operation was about 20 cc, and replaced. Sponges, instruments and needles were accounted for. No drain was used and no surgical specimen submitted for histopathology. TRANSINT:[id number] Voice Confirmation ID: [id number] DOCUMENT ID: [id number] OPERATIVE REPORT [id number] DEIRDRE HARDWICK, PURNIMA MAYER at 1826 CC: ERIC LEGER [id number] DICTATION DATE: 10/04/20 155 TOPPER PACKER: 10/04/201956 [facility] 09/17/20 [facility] [address] [place] [address]
== END 2020-09-17 17:20 | disposition home or self-care (01) ==
LOC: D.OPS 07:23
PROVIDERS: ATTEND Surgery
DX: E11.22 Type 2 diabetes mellitus with diabetic chronic kidney disease (principal); N18.5 Chronic kidney disease, stage 5; Z79.84 Long term (current) use of oral hypoglycemic drugs; Z99.2 Dependence on renal dialysis

== ENCOUNTER 2020-10-08 05:43 | Day surgery (SDC) | payer MEDICARE ==
[~2020-10-08] VITALS: Ht 172.7 cm; Wt 79.5 kg
[~2020-10-08 05:43] MED LIST changes: +SODIUM BICARBO325 MG PO
[2020-10-08 06:21] LABS: BASOPHILS 0.2 % (0-2); EOSINOPHILS 1.2 % (0-7); HEMOGLOBIN 9.4 g/dL (13.5-17.5); IMMATURE GRANULOCYTES 0.3 % (0-5); LYMPHOCYTE ABS# 1.06 10x3/uL (1.32-3.57); MCH 31.3 pg (26.0-34.0); MCHC 32.4 g/dL (31.0-37.0); MCV 96.7 fL (80.0-100.0); MEAN PLATELET VOLUME 9.8 fL (7.4-10.4); MONOCYTES 8.1 % (2-11); NEUTROPHIL ABS# 4.93 10x3/uL (1.78-5.38); NEUTROPHILS 74.2 % (40-80); PLATELET COUNT 243 10x3/uL (130-400); RDW 13.7 % (11.5-14.5); WBC 6.6 10x3/uL (4.8-10.8)
[2020-10-08 06:33] LABS: ANION GAP 22.5 mmol/L (8-16); CALCIUM 8.1 mg/dL (8.5-10.1); CARBON DIOXIDE 14.6 mmol/L (21.0-32.0); CREATININE - SERUM 5.8 mg/dL (0.6-1.3); POTASSIUM - SERUM 5.1 mmol/L (3.5-5.1)
[2020-10-08 06:44] LABS: INR 1.15 (0.85-1.17); PROTIME 13.6 SECONDS (11.6-15.0)
[2020-10-08 07:52] VITALS: BP 142/92; Ht 172.7 cm; Wt 79.5 kg
--- NOTE | 2020-10-08 13:41 | NUR ---
DC INSTRUCTIONS GIVEN TO PT. STATES UNDERSTANDING. DC'D IV CATH FULLY INTACT.
--- NOTE | 2020-10-08 14:00 | NUR ---
PT'S SKIN ON LEFT SIDE TORE UPON REMOVAL OF TAPE FROM IV CATH. BANDAGE PLACED OVER TEAR. PT SAYS IT WAS ALREADY TORN BEFORE TODAY.
--- NOTE | 2020-10-08 14:13 | NUR ---
PT LEFT UNIT VIA WC AT 1412
--- NOTE | 2020-11-02 16:02 | OP ---
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 OPERATION PERFORMED: Open revision with thrombectomy and angiogram and stenting of the proximal swing segment and proximal basilic and axillary vein with an 8 x 10 cm Viabahn. SURGEON: Purnima Chiu MD ANESTHESIA: General with LMA per TRANSPORTATION SALES CONSULTANT PREOPERATIVE NOTE: Mr. Hardwick is a 64-year-old white male with a right arm brachiobasilic AV fistula. He has thrombosis of that and is brought to the operating room now to try to salvage it. He was referred by Dr. Guzman. DESCRIPTION OF PROCEDURE: An incision was made near the arteriovenous anastomosis and the fistula exposed and the brachial artery controlled above and below the anastomosis with Silastic loops. The vein was opened and a Kiki catheter embolectomy was performed removing a large volume of thrombus from the fistula and from the arterial anastomosis as well. Contrast injection was performed, which demonstrated a proximal stenosis and this was treated with a stent, 8 x 10 Viabahn stent graft, the lesion not being suitable to or not having yielded to balloon angioplasty. The fistula was flushed with heparinized saline. The artery was flushed proximally and distally with heparinized saline and the angiogram confirmed absence of thrombus in the vessel distal and proximal to the anastomosis. The vein was closed with running 6-0 Prolene and with release of the occluding loops and clamps excellent flow was restored manifested by excellent continuous pulsatile Doppler flow and a palpable thrill. The wound was irrigated with saline and then closed over a 10-mm flat fully-fluted drain in the axillary wound, which was then attached to suction. The wound was closed in layers with interrupted 3-0 Vicryl and running intracuticular 4-0 Stratafix and Dermabond glue and dressed with Maxorb AG, Tegaderm and Cavilon skin prep. Blood loss was estimated at 10 mL, none was replaced. Sponges, instruments and needles were accounted for. No specimen was submitted for histopathology. TRANSINT:[id number] Voice Confirmation ID: [id number] DOCUMENT ID: [id number] OPERATIVE REPORT [id number] DEIRDRE HARDWICK JAMES MD at 1602 CC: NABEEL GUZMAN MD [id number] DICTATION DATE: 11/01/20 1500 SNAG GRINDER: 11/01/20 1832 [facility] 10/08/20 [place] [id number]
== END 2020-10-08 14:12 | disposition home or self-care (01) ==
LOC: D.OPS 05:43
PROVIDERS: ATTEND Surgery
DX: N18.5 Chronic kidney disease, stage 5 (principal); T82.868A Thrombosis due to vascular prosthetic devices, implants and grafts, initial encounter; I51.9 Heart disease, unspecified; I10 Essential (primary) hypertension

== ENCOUNTER 2020-11-11 14:30 | Inpatient (IN) | payer MEDICARE ==
[~2020-11-11] VITALS: Ht 172.7 cm; Wt 81.0 kg
[2020-11-11 15:33] LABS: EOSINOPHILS 2.1 % (0-7); RBC 2.35 10x6/uL (4.20-6.10)
[2020-11-11 15:34] LABS: BASOPHILS 0.4 % (0-2); HEMATOCRIT 22.6 % (42.0-54.0); LYMPHOCYTES 9.5 % (15-50); MCH 30.5 pg (26.0-34.0); MCHC 31.6 g/dL (31.0-37.0); MCV 96.4 fL (80.0-100.0); MEAN PLATELET VOLUME 9.2 fL (7.4-10.4); MONOCYTES 5.6 % (2-11); NEUTROPHILS 82.4 % (40-80); RDW 14.7 % (11.5-14.5); WBC 7.6 10x3/uL (4.8-10.8)
[2020-11-11 15:58] LABS: ALBUMIN 2.8 g/dL (3.4-5.0); ALKALINE PHOSPHATASE 105 U/L (30-120); ALT (SGPT) 48 U/L (10-68); BILIRUBIN - TOTAL 0.36 mg/dL (0.2-1.3); CALCIUM 7.6 mg/dL (8.5-10.1); CARBON DIOXIDE 14.3 mmol/L (21.0-32.0); CHLORIDE - SERUM 106 mmol/L (98-107); CKMB 7.2 U/L (0.0-3.6); CREATINE KINASE 314 UL (21-232); CREATININE - SERUM 6.5 mg/dL (0.6-1.3); GLUCOSE 82 mg/dL (74-106); PROTEIN - SERUM 6.1 g/dL (6.4-8.2); SODIUM 139 mmol/L (136-145); TROPONIN-I 0.055 ng/mL (0.000-0.060); eGFR NON AFRICAN AMERICAN 9 mL/min (90-120)
[2020-11-11 16:03] LABS: CALC OSMOLALITY 309 mosm/kg (275-300); POTASSIUM - SERUM 6.1 mmol/L (3.5-5.1); PRO BNP 107838 pg/mL (0-125); UREA NITROGEN 104 mg/dL (7-18)
[2020-11-11 16:05] LABS: HEMOGLOBIN 7.2 g/dL (13.5-17.5); PLATELET COUNT 177 10x3/uL (130-400)
[2020-11-11 16:14] LABS: APTT 28.7 SECONDS (22.8-39.4); INR 1.32 (0.85-1.17); PROTIME 15.2 SECONDS (11.6-15.0)
--- NOTE | 2020-11-11 17:15 | NUR ---
GAVE REPORT TO AMITA GUTIERREZ ON MED II.
[2020-11-11 17:38] LABS: % SATURATION 11 % (15-55); IRON 29 ug/dl (35-150); TOTAL IRON BIND CAPACITY 242 ug/dl (260-445); UNSAT IRON BIND CAPACITY 213 ug/dl (150-375)
[2020-11-11 23:43] VITALS: BP 126/68
--- NOTE | 2020-11-11 23:44 | NUR ---
1943--RECEIVED PT FROM DIALYSIS IN WHEELCHAIR. DAUGHTER AT BEDSIDE. PT USES WHEELED WALKER WITH AMBULATION. IS A RESIDENT OF [facility] IN WALKER. ALERT & ORIENTED. HR REGULAR, TELEMETRY-SR W/ PVC'S. RESP EVEN & NONLABORED AT PRESENT. HEPLOCK TO LEFT FOREARM. GRAFT/FISTULA TO RIGHT UPPER ARM THAT IS BEING USED FOR THE FIRST TIME TODAY. +BRUIT/+ THRILL. AWAITING MEDICATION LIST FROM [facility]. DIALYSIS REPORTED 2 LITERS OF FLUID REMOVED. FAMILY AT BEDSIDE.
[2020-11-11 23:50] VITALS: BP 131/66; BMI 27.2
[2020-11-12 03:45] VITALS: BP 132/65
[2020-11-12 06:44] LABS: MEAN PLATELET VOLUME 9.6 fL (7.4-10.4)
[2020-11-12 06:46] LABS: EOSINOPHILS 4.1 % (0-7); HEMATOCRIT 21.2 % (42.0-54.0); LYMPHOCYTES 24.2 % (15-50); MCH 31.1 pg (26.0-34.0); MCHC 32.5 g/dL (31.0-37.0); MCV 95.7 fL (80.0-100.0); MONOCYTES 8.8 % (2-11); NEUTROPHILS 61.9 % (40-80); PLATELET COUNT 147 10x3/uL (130-400); RBC 2.22 10x6/uL (4.20-6.10); RDW 14.3 % (11.5-14.5)
[2020-11-12 07:12] LABS: WBC 4.5 10x3/uL (4.8-10.8)
--- NOTE | 2020-11-12 07:14 | NUR ---
Rcvd call from microbiological lab technician [facility] that Hg is 6.9
[2020-11-12 07:15] LABS: HEMOGLOBIN 6.9 g/dL (13.5-17.5)
--- NOTE | 2020-11-12 07:16 | NUR ---
Called NICOLETTE Alba, reported Hg, rcvd orders
[2020-11-12 07:43] LABS: ANION GAP 23.5 mmol/L (8-16); CALCIUM 7.9 mg/dL (8.5-10.1); CARBON DIOXIDE 17.3 mmol/L (21.0-32.0); CREATININE - SERUM 5.4 mg/dL (0.6-1.3); PHOSPHOROUS 7.3 mg/dL (2.5-4.9); POTASSIUM - SERUM 4.8 mmol/L (3.5-5.1)
[2020-11-12 07:47] VITALS: BMI 27.1
--- NOTE | 2020-11-12 08:00 | NUR ---
Lying in bed, awake/alert/oriented, T/R freq for c/c, self caths with a straight cath, cath care provided PRN, denies pain/other discomfort at this time, call light/phone/water within reach, no s/s of acute distress observed.
[2020-11-12 08:06] VITALS: BP 114/72
--- NOTE | 2020-11-12 11:15 | NUR ---
Off unit for Dialysis via bed accompanied by hospital staff, no s/s of acute distress observed.
[2020-11-12 11:25] VITALS: BP 173/69
--- NOTE | 2020-11-12 14:00 | NUR ---
Back to room in stable condition via bed accompanied by hospital staff, no s/s of acute distress observed.
[2020-11-12 17:23] LABS: BILIRUBIN NEGATIVE (NEGATIVE); KETONE NEGATIVE (NEGATIVE); NITRITE NEGATIVE (NEGATIVE); UROBILINOGEN NORMAL mg/dL (< 2)
[2020-11-12 17:27] LABS: WHITE CELLS - URINE 25-50 HPF (0-1)
[2020-11-12 17:28] LABS: BACTERIA MANY HPF (NONE SEEN); SQUAMOUS EPITHELIAL 0-5 HPF (0-4)
--- NOTE | 2020-11-12 18:05 | NUR ---
Paged Dr. Silva r/t pt question of why he is NPO, waiting for return call.
[2020-11-12 20:48] VITALS: BP 138/81
[2020-11-13 00:16] VITALS: BP 126/81
[2020-11-13 04:30] VITALS: BP 132/76
--- NOTE | 2020-11-13 07:30 | NUR ---
Lying in bed, awake/alert/oriented, T/R self ad dante, cont of B/B with BRPs per self ad dante, denies pain/other discomfort at this time, call light/phone/water within reach, family member at bedside, no s/s of acute distress observed.
[2020-11-13 08:13] VITALS: BP 129/8
[2020-11-13 09:11] LABS: HEPATITIS C ANTIBODY <0.1 S/CO RAT (0.0-0.9)
[2020-11-13 11:11] LABS: BASOPHILS 0.9 % (0-2); EOSINOPHILS 4.4 % (0-7); HEMATOCRIT 25.1 % (42.0-54.0); HEMOGLOBIN 8.1 g/dL (13.5-17.5); MCH 30.5 pg (26.0-34.0); MCHC 32.2 g/dL (31.0-37.0); MCV 94.6 fL (80.0-100.0); MEAN PLATELET VOLUME 8.7 fL (7.4-10.4); MONOCYTES 12.3 % (2-11); NEUTROPHILS 62.4 % (40-80); PLATELET COUNT 152 10x3/uL (130-400); RBC 2.65 10x6/uL (4.20-6.10); RDW 15.6 % (11.5-14.5); WBC 5.6 10x3/uL (4.8-10.8)
[2020-11-13 11:30] LABS: ALBUMIN 2.6 g/dL (3.4-5.0); ANION GAP 19.3 mmol/L (8-16); BILIRUBIN - TOTAL 0.52 mg/dL (0.2-1.3); CALCIUM 7.9 mg/dL (8.5-10.1); CREATININE - SERUM 4.6 mg/dL (0.6-1.3); MAGNESIUM - SERUM 1.4 mg/dL (1.8-2.4); PHOSPHOROUS 5.7 mg/dL (2.5-4.9); POTASSIUM - SERUM 4.3 mmol/L (3.5-5.1)
[2020-11-13 11:52] VITALS: BP 133/67
--- NOTE | 2020-11-13 15:00 | NUR ---
Off unit for dialysis via w/c, no s/s of acute distressobserved.
--- NOTE | 2020-11-13 18:08 | NUR ---
Lluvia in dialysis called report, took off 2 liters, bp 121/66, hr82, temp 97.3
--- NOTE | 2020-11-13 18:14 | NUR ---
Returned to room via w/c in stable condition accompanied by hospital staff, call light/phone/water within reach, no s/s of acute distress observed.
--- NOTE | 2020-11-13 19:20 | NUR ---
PT RESTING IN ROOM WATCHING TV. HEALTHCARE MANAGER AT BEDSIDE, TECH INFORMED THIS NURSE OF TEMP OF 102.3 ORALLY. THIS NURSE INFORMED PATIENT OF TEMP AND REMOVED ALL COVERS AND LEFT ONLY SHEET. PT AND CAREGIVER ACKNOWLEDGED. SIDE RAILS UP X 2, CALL LIGHT WITHIN REACH, DENIES NEEDS, WILL CONTINUE TO MONITOR.
--- NOTE | 2020-11-13 20:00 | NUR ---
CALL PUT IN FOR ORDER FOR FEVER. PAGED HOANG MORFIN AT [phone], AWAITING CALL BACK FOR ORDERS.
[2020-11-13 20:25] VITALS: BP 134/71
--- NOTE | 2020-11-13 20:30 | NUR ---
TELEPHONE ORDER FOR BLOOD AND URINE CULTURES, TYLENOL 650MG PO Q6PRN, AND VANCOMYCIN 1 GM IV, AFTER CULTURES. READ BACK TO CONFIRM ORDERS.
--- NOTE | 2020-11-13 21:10 | NUR ---
BLOOD AND URINE CULTURES COLLECTED.
[2020-11-13 22:51] VITALS: BP 115/61
[2020-11-14 05:09] LABS: BASOPHILS 0.6 % (0-2); EOSINOPHILS 3.4 % (0-7); HEMATOCRIT 23.7 % (42.0-54.0); HEMOGLOBIN 7.8 g/dL (13.5-17.5); LYMPHOCYTES 12.3 % (15-50); MCH 30.5 pg (26.0-34.0); MCHC 32.7 g/dL (31.0-37.0); MCV 93.3 fL (80.0-100.0); MONOCYTES 11.6 % (2-11); NEUTROPHILS 72.1 % (40-80); PLATELET COUNT 136 10x3/uL (130-400); RBC 2.54 10x6/uL (4.20-6.10); RDW 14.9 % (11.5-14.5)
[2020-11-14 05:27] LABS: ALBUMIN 2.5 g/dL (3.4-5.0); ANION GAP 15.3 mmol/L (8-16); BILIRUBIN - TOTAL 0.59 mg/dL (0.2-1.3); CALCIUM 7.9 mg/dL (8.5-10.1); CREATININE - SERUM 4.1 mg/dL (0.6-1.3); PHOSPHOROUS 4.3 mg/dL (2.5-4.9); POTASSIUM - SERUM 3.8 mmol/L (3.5-5.1); PROTEIN - SERUM 5.7 g/dL (6.4-8.2)
[2020-11-14 05:28] LABS: CARBON DIOXIDE 26.5 mmol/L (21.0-32.0)
[2020-11-14 06:30] VITALS: BP 123/69
[2020-11-14 12:28] VITALS: BP 120/69
[2020-11-14 15:25] LABS: BILIRUBIN NEGATIVE (NEGATIVE); KETONE NEGATIVE (NEGATIVE); NITRITE POSITIVE (NEGATIVE); UROBILINOGEN NORMAL mg/dL (< 2)
[2020-11-14 15:27] LABS: BACTERIA MANY HPF (NONE SEEN); SQUAMOUS EPITHELIAL 0-5 HPF (0-4)
--- NOTE | 2020-11-14 17:06 | NUR ---
TEMP 102.4 ADMINISTERED PRN TYLENOL PER ORDERS.
[2020-11-14 19:45] VITALS: BP 119/75
--- NOTE | 2020-11-14 23:11 | NUR ---
INITIAL ROUNDS COMPLETED AT 1915 HRS. PT DENIED ANY DISCOMFORT. DAUGHTER AT BEDSIDE. ASSESSMENT COMPLETED AT 1950 HRS. SR PER CMHR 80. ALERT AND ORIENTED TO PERSON, PLACE AND TIME. BENITO. PALPABLE PERIPHERAL PULSES. R ARM FISTULA WITH GOOD BRUIT AND THRILL. IV TO LFA AL. LUNGS ESNETIALLU CTA. SLIGHT L SIDED WEAKNESS NOTED. PT UP AD IAN WITH WALKER. PM FSBS 103. NO COVERAGE NEEDED. PM MEDS GIVEN. PT CURRENTLY WATCHING TV. SR UP X1,CALL LIGHT WITHIN REACH.
--- NOTE | 2020-11-15 00:09 | NUR ---
PT RESTING WITH EYES CLOSED. RESP EVEN AND REGULAR. SR UP X1, CALL LIGHT WITHIN REACH.
--- NOTE | 2020-11-15 00:22 | NUR ---
TEMP 102. TYLENOL 650MG PO GIVEN. PT REFUSED OFFER OF COOL WASHCLOTHS TO FOREHEAD ABD ARMS. CALL LIGHT WITHIN REACH.
[2020-11-15 00:27] VITALS: BP 100/66
--- NOTE | 2020-11-15 02:23 | NUR ---
PT RESTING WITH EYES CLOSED. RESP EVEN AND REGULAR. SR UP X1, CALL LIGHT WITHIN REACH.
--- NOTE | 2020-11-15 04:05 | NUR ---
PT RESTING WITH EYES CLOSED. RESP EVEN AND REGULAR. CALL LIGHT WITHIN REACH.
[2020-11-15 04:55] VITALS: BP 90/56
--- NOTE | 2020-11-15 06:23 | NUR ---
VSS THROUGHOUT NIGHT. SR PER CM. TEMP DOWN AFTER TYLENOL ADMINISTRATION. AM FSBS97. NO COVERAGE NECESSARY. NEEDS MET, WILL CONTINUE TO MONITOR.
[2020-11-15 06:51] LABS: LYMPHOCYTES 17.4 % (15-50); WBC 5.4 10x3/uL (4.8-10.8)
[2020-11-15 06:54] LABS: BASOPHILS 0.6 % (0-2); EOSINOPHILS 7.4 % (0-7); MCH 31.5 pg (26.0-34.0); MCHC 33.8 g/dL (31.0-37.0); MCV 93.2 fL (80.0-100.0); MONOCYTES 11.9 % (2-11); NEUTROPHILS 62.7 % (40-80); PLATELET COUNT 114 10x3/uL (130-400); RBC 2.36 10x6/uL (4.20-6.10); RDW 15.1 % (11.5-14.5)
[2020-11-15 07:20] LABS: HEMOGLOBIN 7.5 g/dL (13.5-17.5)
[2020-11-15 07:51] LABS: ALBUMIN 2.2 g/dL (3.4-5.0); ANION GAP 15.4 mmol/L (8-16); BILIRUBIN - TOTAL 0.47 mg/dL (0.2-1.3); CARBON DIOXIDE 23.3 mmol/L (21.0-32.0); POTASSIUM - SERUM 3.7 mmol/L (3.5-5.1); PROTEIN - SERUM 5.5 g/dL (6.4-8.2); VANCOMYCIN - RANDOM 12.2 ug/mL (10.0-20.0)
[2020-11-15 07:53] LABS: CREATININE - SERUM 5.6 mg/dL (0.6-1.3)
[2020-11-15 08:02] VITALS: BP 143/71
[2020-11-15 11:30] VITALS: BP 99/70
[2020-11-15 16:00] VITALS: BP 111/68
--- NOTE | 2020-11-15 19:30 | NUR ---
PT IN BED, EYES CLOSED, RESP EVEN AND UNLABORED, NO DISTRESS NOTED, CL IN REACH, SR UP X 2.
[2020-11-15 20:00] VITALS: BP 118/70
[2020-11-16] VITALS: BP 115/73
[2020-11-16 04:00] VITALS: BP 106/67
--- NOTE | 2020-11-16 04:37 | NUR ---
I have reviewed this patient and I concur with the Shift Assessment completed by the Licensed Practical Nurse today this shift.
[2020-11-16 07:01] LABS: BASOPHILS 0.6 % (0-2); EOSINOPHILS 8.8 % (0-7); HEMATOCRIT 23.5 % (42.0-54.0); HEMOGLOBIN 7.7 g/dL (13.5-17.5); LYMPHOCYTES 19.8 % (15-50); MCH 30.2 pg (26.0-34.0); MCHC 32.7 g/dL (31.0-37.0); MCV 92.6 fL (80.0-100.0); MEAN PLATELET VOLUME 9.6 fL (7.4-10.4); MONOCYTES 12.9 % (2-11); NEUTROPHILS 57.9 % (40-80); PLATELET COUNT 128 10x3/uL (130-400); RBC 2.53 10x6/uL (4.20-6.10); RDW 14.7 % (11.5-14.5); WBC 5.6 10x3/uL (4.8-10.8)
[2020-11-16 07:34] LABS: ALBUMIN 2.3 g/dL (3.4-5.0); ANION GAP 19.8 mmol/L (8-16); BILIRUBIN - TOTAL 0.43 mg/dL (0.2-1.3); CALCIUM 7.8 mg/dL (8.5-10.1); CREATININE - SERUM 6.5 mg/dL (0.6-1.3); PHOSPHOROUS 5.1 mg/dL (2.5-4.9); POTASSIUM - SERUM 3.8 mmol/L (3.5-5.1); PROTEIN - SERUM 5.3 g/dL (6.4-8.2); VANCOMYCIN - RANDOM 20.3 ug/mL (10.0-20.0)
[2020-11-16 08:39] VITALS: BP 124/77
--- NOTE | 2020-11-16 10:56 | NUR ---
Nutrition Follow-up: C/o some nausea without vomiting, as well as diarrhea. Noted cdiff ordered. Ate ~25% of breakfast this AM. Agreed to try Nepro. HD MWF. Diet: Full Liquid - advance as tolerated PO intake: 63% avg x 4 meals No new wt; last wt: 178.6# (11/12) Labs noted: BUN 41, Cre 6.5, GFR 9, K+ 3.8, Glu 78, Ca 7.8, PO4 5.1, Alb 2.3 Meds noted: Pepcid, Tums, Reglan, Calcitriol, Humulin -Rec advance diet as tolerated to renal carb consistent; will provide food choices with selective menus and honor food preferences within diet restrictions. -Will send Nepro at lunch today for pt trial. -Need new wt. -RD will follow up within 3 days.
--- NOTE | 2020-11-16 13:49 | NUR ---
STOOL SPECIMEN COLLECTED AND TAKEN TO LAB. WILL MONITOR.
[2020-11-16 16:30] VITALS: BP 138/77
--- NOTE | 2020-11-16 18:13 | NUR ---
UP TO BR HAVING BM. HR 170S SVT. B/P 131/75. HR BACK IN 90S. MANUEL WILL NOTIFIED. NEW ORDERS GIVEN.
[2020-11-16 19:10] LABS: SARS-CoV-2 ANTIGEN NEGATIVE- SARS-COV-2 (NEGATIVE)
--- NOTE | 2020-11-16 19:30 | NUR ---
PT IN BED, AAO X 3, RESP EVEN AND UNLABORED, NO DISTRESS NOTED, CL IN REACH, SR UP X 2.
[2020-11-16 20:33] VITALS: BP 130/80
--- NOTE | 2020-11-16 22:29 | NUR ---
DIALYSIS COORDINATOR: MICHELLE FOR OPHD IS [facility]ARY ELL[facility] TORREZ. THIS CLINIC IS CLOSED ON /. PT'S REFERRAL IS PENDING. WILL F/U W/ THE CLINIC IN AM TO MAKE SURE ALL DOCUMENTATION WAS RECEIVED. CLINIC SHOULD BE ABLE TO RELEASE CCT TOMORROW (11/17). WILL UPDATE AVAILABLE. ARMANDO RICHARD.
[2020-11-17 00:34] VITALS: BP 136/89
--- NOTE | 2020-11-17 03:00 | NUR ---
I have reviewed this patient and I concur with the Shift Assessment completed by the Licensed Practical Nurse today this shift.
[2020-11-17 04:45] VITALS: BP 113/75
[2020-11-17 08:13] LABS: CYTOMEGALOVIRUS AB IGG >10.00 U/mL (0.00-0.59)
[2020-11-17 08:27] LABS: BASOPHILS 0.3 % (0-2); EOSINOPHILS 10.5 % (0-7); HEMATOCRIT 24.9 % (42.0-54.0); HEMOGLOBIN 8.3 g/dL (13.5-17.5); LYMPHOCYTES 20.8 % (15-50); MCH 30.7 pg (26.0-34.0); MCHC 33.2 g/dL (31.0-37.0); MCV 92.5 fL (80.0-100.0); MEAN PLATELET VOLUME 9.3 fL (7.4-10.4); MONOCYTES 11.7 % (2-11); NEUTROPHILS 56.7 % (40-80); PLATELET COUNT 128 10x3/uL (130-400); RBC 2.69 10x6/uL (4.20-6.10); RDW 15.1 % (11.5-14.5); WBC 4.9 10x3/uL (4.8-10.8)
[2020-11-17 08:34] VITALS: BP 116/76
[2020-11-17 08:43] LABS: ALBUMIN 2.1 g/dL (3.4-5.0); ANION GAP 18.1 mmol/L (8-16); BILIRUBIN - TOTAL 0.46 mg/dL (0.2-1.3); CALCIUM 8.4 mg/dL (8.5-10.1); CARBON DIOXIDE 22.5 mmol/L (21.0-32.0); CREATININE - SERUM 7.2 mg/dL (0.6-1.3); POTASSIUM - SERUM 3.6 mmol/L (3.5-5.1); PROTEIN - SERUM 5.9 g/dL (6.4-8.2)
--- NOTE | 2020-11-17 10:13 | NUR ---
CARDIOLOGY CONSULTED FOR PERIODS OF SVT. LEAVING FOR DIALYSIS BY BED. WILL CONT. PLAN OF CARE.
--- NOTE | 2020-11-17 15:13 | NUR ---
Dialysis Coordinator: Patient has been accepted for OPHD placement: [facility] Sun[facility]Sun/Sun apt 11:15am Regular Schedule Arrival: 11:25am On-time: 11:45am Patient can start in-center on November 19. welcome letter faxed to [facility] nurses station. S/w Nataliia ROBERTS DC.
[2020-11-17 15:37] VITALS: Ht 172.7 cm; Wt 81.0 kg
[2020-11-17 15:50] VITALS: BP 119/65
--- NOTE | 2020-11-17 19:30 | NUR ---
PT IN BED, AAO X 3, RESP EVEN AND UNLABORED, NO DISTRESS NOTED, CL IN REACH, SR UP X 2.
[2020-11-17 20:28] VITALS: BP 105/63
[2020-11-17 23:53] VITALS: BP 106/61
--- NOTE | 2020-11-18 04:48 | NUR ---
I have reviewed this patient and I concur with the Shift Assessment completed by the Licensed Practical Nurse today this shift.
[2020-11-18 04:57] VITALS: BP 89/51
[2020-11-18 06:28] LABS: BASOPHILS 0.6 % (0-2); EOSINOPHILS 10.5 % (0-7); HEMATOCRIT 24.2 % (42.0-54.0); HEMOGLOBIN 7.9 g/dL (13.5-17.5); LYMPHOCYTES 18.2 % (15-50); MCH 30.5 pg (26.0-34.0); MCHC 32.8 g/dL (31.0-37.0); MEAN PLATELET VOLUME 9.6 fL (7.4-10.4); MONOCYTES 10.7 % (2-11); PLATELET COUNT 121 10x3/uL (130-400); RDW 14.8 % (11.5-14.5); WBC 5.8 10x3/uL (4.8-10.8)
[2020-11-18 06:54] LABS: ANION GAP 12.7 mmol/L (8-16); BILIRUBIN - TOTAL 0.4 mg/dL (0.2-1.3); CALCIUM 8.3 mg/dL (8.5-10.1); CREATININE - SERUM 5.6 mg/dL (0.6-1.3); POTASSIUM - SERUM 3.7 mmol/L (3.5-5.1); PROTEIN - SERUM 5.8 g/dL (6.4-8.2)
[2020-11-18 06:57] LABS: PHOSPHOROUS 3.8 mg/dL (2.5-4.9)
[2020-11-18 07:30] VITALS: BP 90/51
--- NOTE | 2020-11-18 11:03 | NUR ---
PT WITH COMPLAINT OF PAIN TO LEFT HAND. IT IS A LITTLE RED AND HAS SOME SWELLING AND WARMTH TO IT. IV IS IN ARM BUT WELL ABOVE AREA OF CONCERN AND NOT SYMPTOMATIC.
[2020-11-18 11:05] VITALS: BP 125/56
--- NOTE | 2020-11-18 11:56 | NUR ---
Nutrition Reassessment/Follow-up: Pt reports eating >50% of breakfast this AM. States that he did not receive Nepro as ordered for trial on 11/16; sent another 1 time food request for Nepro with lunch today. Continues to c/o diarrhea without improvement. Cdiff (-). Diet: Full Liquid - advance as tolerated No new wt; last wt: 178.6# (11/12)Adj BW: 160.2# Labs noted: K+ 3.7, BUN 27, Cre 5.6, GFR 11, Glu 111, Ca 8.3, PO4 3.8, Alb 2.0 Meds noted: Pepcid, Tums, Reglan, Calcitriol Est needs: 5216-4853 kcal/day (30-35 kcal/kg adj BW) 90-95 g protein/day (1.2-1.3 g/kg adj BW) Fluid: 1000 mL + UOP or per MD Nutrition Diagnosis: -Altered nutrition-related lab values R/T ESRD, DM AEB BUN 27, Cre 5.6, GFR 11, elev Glu. Nutrition Goals: -PO intake >=75% avg of meals/snacks. -Meet est fluid needs without fluid overload. -Stable dry wt. -Glu at or near normal. Nutrition Intervention: -Rec advance diet to renal carb consistent as medically feasible; encourage PO intake and honor food preferences within diet restrictions. -Nepro sent with lunch today for pt trial. -Need new wt; noted daily wts ordered. -RD will follow up within 4-5 days.
--- NOTE | 2020-11-18 14:48 | NUR ---
BP 93/51, DR GUZMAN IN ROOM AND ORDERS GIVEN FOR NS BOLUS AND L LITER FLUID AFTER. PT INFORMED.
[2020-11-18 16:04] VITALS: BP 103/61
--- NOTE | 2020-11-18 19:30 | NUR ---
PT IN BED, EYES CLOSED, RESP EVEN AND UNLABORED, NO DISTRESS NOTED, CL IN REACH, SR UP X 2.
[2020-11-18 19:45] VITALS: BP 93/60
[2020-11-18 23:40] VITALS: BP 102/63
[2020-11-19 03:08] LABS: CMV QUANT DNA PCR (PLASMA) Negative (Negative)
--- NOTE | 2020-11-19 05:03 | NUR ---
I have reviewed this patient and I concur with the Shift Assessment completed by the Licensed Practical Nurse today this shift.
[2020-11-19 05:28] VITALS: BP 99/60
--- NOTE | 2020-11-19 06:38 | NUR ---
PT TAKEN TO DIALYSIS AT THIS TIME.
[2020-11-19 06:47] LABS: HEMATOCRIT 23.5 % (42.0-54.0); HEMOGLOBIN 7.8 g/dL (13.5-17.5); MCH 30.5 pg (26.0-34.0); MCHC 33.1 g/dL (31.0-37.0); MCV 92.4 fL (80.0-100.0); MEAN PLATELET VOLUME 9.8 fL (7.4-10.4); PLATELET COUNT 126 10x3/uL (130-400); RBC 2.54 10x6/uL (4.20-6.10); RDW 14.9 % (11.5-14.5); WBC 5.2 10x3/uL (4.8-10.8)
[2020-11-19 06:51] LABS: ANION GAP 11.1 mmol/L (8-16); BILIRUBIN - TOTAL 0.32 mg/dL (0.2-1.3); CALCIUM 8.6 mg/dL (8.5-10.1); CARBON DIOXIDE 27.6 mmol/L (21.0-32.0); CREATININE - SERUM 6.1 mg/dL (0.6-1.3); POTASSIUM - SERUM 3.7 mmol/L (3.5-5.1); PROTEIN - SERUM 5.8 g/dL (6.4-8.2)
--- NOTE | 2020-11-19 08:06 | NUR ---
PT TO DIALYSIS PRIOR TO SHIFT CHANGE. FAMILY IN ROOM.
[2020-11-19 08:21] LABS: EOSINOPHILS 9 % (0-7); LYMPHOCYTES 26 % (15-50); MONOCYTES 5 % (2-11); NEUTROPHILS 60 % (40-80)
[2020-11-19 08:22] LABS: ANISOCYTOSIS 1+; MICROCYTOSIS 1+; PLATELET ESTIMATE NORMAL
[2020-11-19] MEDS ORDERED: LOPRESSOR25 MG PO (10:25)
[2020-11-19] MEDS ORDERED: ROCALTROL0.25 MCG PO (10:27)
--- NOTE | 2020-11-19 13:51 | NUR ---
PT'S DISCHARGE INSTRUCTIONS REVIEWED WITH DAUGHTER IN ROOM. IV OUT. REPORT CALLED TO [place] WHERE HE IS FROM. WALKER WITH PT.
--- NOTE | 2020-11-19 13:58 | MORECARE ---
CASE MANAGEMENT DISCHARGE SUMMARY PATIENT: DEIRDRE HAYDEN UNIT: [id number] ADM DATE: 11/11/20 AGE: 64 : 57 SEX: M ROOM/BED: D.2 AUTHOR: MI PACK PHYSICIAN: REFERRING PHYSICIAN: HIREN BUI MD DATE OF SERVICE: 11/19/20 Case Management Discharge Planning Summary COMMENTS ENTERED DATE: 11/19/20 9:22 CT COMMENT TYPE: Discharge Planning REVIEWER: Nataliia Brownlee CM spoke to daughters yesterday who are concerned with patient discharging back to [facility]. Both voiced concern about needing more care than he is getting. Both requested to speak with the nurse and physician taking care of patient in this hospital. Spoke with Malik GUTIERREZ and communicated their request who was present in the room. Will report to MAHENDRA Mejia to follow up with family once patient is ready to discharge. ENTERED DATE: 11/17/20 15:38 CT COMMENT TYPE: Discharge Planning REVIEWER: Nataliia Brownlee Pt received welcome letter via fax for dialysis. Pt has appointment with [facility] to start Sunday 11/19 @ 11:25am. DCP REVIEW SUMMARY ANTICIPATED D/C DATE: EXPECTED LOS : CASE STATUS: DCP Initiated INITIAL REVIEW: 11/19/2020 INITIAL REVIEWER: Jackie Joseph FINAL DISCHARGE DISPOSITION: : FINAL REVIEWER: FINAL REVIEW DATE: DCP Focus Questions & Answers QUESTION: ANSWER : PATIENT: DEIRDRE HAYDEN ENCOUNTER: [id number] MEDICAL RECORD#: [id number] ADMISSION DATE: 11/11/2020 DISCHARGE DATE: 11/19/2020 ATTENDING MD: HIREN COLLINS : AGE: 64 MARITAL STATUS: D DC PLAN ID: [id number] FACILITY: [facility] PRINTED ON: 11/19/20 13:58 CT All edits/amendments must be made on the electronic document DICTATION DATE: 11/19/208 IMAGE EDITOR: PERLA 11/19/20 1358 RPT#: [id number] DC DATE:11/19/20 STATUS: DIS IN [facility] [address] [place] [place] [address] END OF REPORT
--- NOTE | 2020-11-19 14:12 | MORECARE ---
CASE MANAGEMENT DISCHARGE SUMMARY PATIENT: DEIRDRE HAYDEN UNIT: [id number] ADM DATE: 11/11/20 AGE: 64 : 57 SEX: M ROOM/BED: D.2112 AUTHOR: RAMONE,DOC PHYSICIAN: REFERRING PHYSICIAN: HIREN BUI MD DATE OF SERVICE: 11/19/20 Case Management Discharge Planning Summary COMMENTS ENTERED DATE: 11/19/20 13:57 CT COMMENT TYPE: Discharge Planning REVIEWER: Jackie Joseph CM met with patient and his daughter's about discharge planning/needs. He lives at [facility] and plans to return. The daughter's state that they are looking into other facilities closer to [facility] for LTC. They are in agreement to return to [facility] for the time being. I informed them that his dialysis center will need to be changed if he leaves the [facility], but that can be easily done. Orders for DC received to return to a correction care bed at [facility]. I spoke with Glenys merritt and clinical faxed. He will have first dialysis on SundayNovember 22 at 11:15. [facility] DTR - [phone] ENTERED DATE: 11/19/20 9:22 CT COMMENT TYPE: Discharge Planning REVIEWER: Nataliia Brownlee CM spoke to daughters yesterday who are concerned with patient discharging back to [facility] in [place]. Both voiced concern about needing more care than he is getting. Both requested to speak with the nurse and physician taking care of patient in this hospital. Spoke with Malik GUTIERREZ and communicated their request who was present in the room. Will report to MAHENDRA Mejia to follow up with family once patient is ready to discharge. ENTERED DATE: 11/17/20 15:38 CT COMMENT TYPE: Discharge Planning REVIEWER: Nataliia Brownlee Pt received welcome letter via fax for dialysis. Pt has appointment with [facility] to start Sunday 11/19 @ 11:25am. DCP REVIEW SUMMARY ANTICIPATED D/C DATE: EXPECTED LOS : CASE STATUS: DCP Initiated INITIAL REVIEW: 11/19/2020 INITIAL REVIEWER: Jackie Joseph FINAL DISCHARGE DISPOSITION: : FINAL REVIEWER: FINAL REVIEW DATE: DCP Focus Questions & Answers QUESTION: ANSWER : PATIENT: DEIRDRE HAYDEN ENCOUNTER: [id number] MEDICAL RECORD#: [id number] ADMISSION DATE: 11/11/2020 DISCHARGE DATE: 11/19/2020 ATTENDING MD: HIREN COLLINS : AGE: 64 MARITAL STATUS: D DC PLAN ID: [id number] FACILITY: [facility] PRINTED ON: 11/19/20 14:12 CT All edits/amendments must be made on the electronic document DICTATION DATE: 11/19/201411 SQL SERVER DBA: PERLA 11/19/201411 RPT#: [id number] DC DATE:11/19/20 STATUS: DIS IN [facility] [address] [place] [address] END OF REPORT
--- NOTE | 2020-11-22 15:59 | MORECARE ---
CASE MANAGEMENT DISCHARGE SUMMARY PATIENT: DEIRDRE HAYDEN UNIT: [id number] ADM DATE: 11/11/20 AGE: 64 : 59 SEX: M ROOM/BED: D.2112 AUTHOR: RAMONE,DOC PHYSICIAN: REFERRING PHYSICIAN: HIREN BUI MD DATE OF SERVICE: 11/22/20 Case Management Discharge Planning Summary COMMENTS ENTERED DATE: 11/19/20 13:57 CT COMMENT TYPE: Discharge Planning REVIEWER: Jackie Joseph CM met with patient and his daughter's about discharge planning/needs. He lives at [facility] and plans to return. The daughter's state that they are looking into other facilities closer to [facility] for LTC. They are in agreement to return to [facility] for the time being. I informed them that his dialysis center will need to be changed if he leaves the [facility], but that can be easily done. Orders for DC received to return to a correction care bed at [facility]. I spoke with Glenys merritt and clinical faxed. He will have first dialysis on SundayNovember 22 at 11:15. [facility] DTR - [phone] ENTERED DATE: 11/19/20 9:22 CT COMMENT TYPE: Discharge Planning REVIEWER: Nataliia Brownlee CM spoke to daughters yesterday who are concerned with patient discharging back to [facility] in [place]. Both voiced concern about needing more care than he is getting. Both requested to speak with the nurse and physician taking care of patient in this hospital. Spoke with Malik GUTIERREZ and communicated their request who was present in the room. Will report to MAHENDRA Mejia to follow up with family once patient is ready to discharge. ENTERED DATE: 11/17/20 15:38 CT COMMENT TYPE: Discharge Planning REVIEWER: Nataliia Brownlee Pt received welcome letter via fax for dialysis. Pt has appointment with [facility] to start Sunday 11/19 @ 11:25am. DCP REVIEW SUMMARY ANTICIPATED D/C DATE: EXPECTED LOS : CASE STATUS: DCP Initiated INITIAL REVIEW: 11/19/2020 INITIAL REVIEWER: Jackie Joseph FINAL DISCHARGE DISPOSITION: : FINAL REVIEWER: FINAL REVIEW DATE: DCP Focus Questions & Answers QUESTION: ANSWER : PATIENT: DEIRDRE HAYDEN ENCOUNTER: [id number] MEDICAL RECORD#: [id number] ADMISSION DATE: 11/11/2020 DISCHARGE DATE: 11/19/2020 ATTENDING MD: HIREN COLLINS : AGE: 64 MARITAL STATUS: D DC PLAN ID: [id number] FACILITY: [facility] PRINTED ON: 11/22/20 15:58 CT All edits/amendments must be made on the electronic document DICTATION DATE: 11/22/20 1558 SOFTWARE INSTALLATION ENGINEER: PERLA 11/22/20 1558 RPT#: [id number] DC DATE:11/19/20 STATUS: DIS IN [facility] [address] [place] [address] END OF REPORT
== END 2020-11-19 13:52 | DRG 640 ==
LOC: D.ER 14:30 → D.M2 16:30
PROVIDERS: Emergency Medicine; Internal Medicine Nephrology; ADMIT Internal Medicine Nephrology; ATTEND Internal Medicine Nephrology
PROC: 5A1D70Z Performance of Urinary Filtration, Intermittent, Less than 6 Hours Per Day (ICD-10-PCS; principal; 2020-11-11)
DX: E87.5 Hyperkalemia (principal); N18.6 End stage renal disease; I12.0 Hypertensive chronic kidney disease with stage 5 chronic kidney disease or end stage renal disease; D68.9 Coagulation defect, unspecified; N25.81 Secondary hyperparathyroidism of renal origin; I47.1 Supraventricular tachycardia; Z94.0 Kidney transplant status; T86.11 Kidney transplant rejection; E11.22 Type 2 diabetes mellitus with diabetic chronic kidney disease; Z20.822 Contact with and (suspected) exposure to COVID-19; E87.2 Acidosis; D63.1 Anemia in chronic kidney disease; E78.5 Hyperlipidemia, unspecified; I25.10 Atherosclerotic heart disease of native coronary artery without angina pectoris; I25.5 Ischemic cardiomyopathy; M89.9 Disorder of bone, unspecified

== ENCOUNTER 2020-11-20 12:09 | Inpatient (IN) | payer MEDICARE ==
[2020-11-20] VITALS (8 sets, daily range): BP systolic 92–113; BP diastolic 55–86
[~2020-11-20] VITALS: Ht 172.7 cm; Wt 72.5 kg
[~2020-11-20 12:09] MED LIST changes: +LOPRESSOR25 MG PO; +ROCALTROL0.25 MCG PO
[2020-11-20 12:28] LABS: BASOPHILS 0.5 % (0-2); EOSINOPHILS 10.9 % (0-7); HEMATOCRIT 23.6 % (42.0-54.0); HEMOGLOBIN 7.7 g/dL (13.5-17.5); LYMPHOCYTES 15.4 % (15-50); MCH 30.1 pg (26.0-34.0); MCHC 32.6 g/dL (31.0-37.0); MCV 92.6 fL (80.0-100.0); MEAN PLATELET VOLUME 10.2 fL (7.4-10.4); MONOCYTES 9.3 % (2-11); NEUTROPHILS 63.9 % (40-80); PLATELET COUNT 142 10x3/uL (130-400); RBC 2.54 10x6/uL (4.20-6.10); RDW 14.7 % (11.5-14.5); WBC 4.5 10x3/uL (4.8-10.8)
[2020-11-20 12:38] LABS: ANION GAP 10.4 mmol/L (8-16); CALCIUM 8.7 mg/dL (8.5-10.1); CARBON DIOXIDE 29.2 mmol/L (21.0-32.0); CREATININE - SERUM 5.7 mg/dL (0.6-1.3)
[2020-11-20 12:39] LABS: POTASSIUM - SERUM 4.6 mmol/L (3.5-5.1)
[2020-11-20 12:44] LABS: ALBUMIN 2.1 g/dL (3.4-5.0); BILIRUBIN - TOTAL 0.25 mg/dL (0.2-1.3); MAGNESIUM - SERUM 1.8 mg/dL (1.8-2.4); PROTEIN - SERUM 6.4 g/dL (6.4-8.2)
[2020-11-20 15:21] LABS: BILIRUBIN NEGATIVE (NEGATIVE); KETONE NEGATIVE (NEGATIVE); NITRITE NEGATIVE (NEGATIVE); UROBILINOGEN NORMAL mg/dL (< 2)
[2020-11-20 15:37] LABS: AMORPHOUS SEDIMENT MODERATE LPF (NONE SEEN); BACTERIA MODERATE HPF (NONE SEEN)
--- NOTE | 2020-11-20 19:17 | NUR ---
PT REPORT GIVEN TO MARIA L GUTIERREZ
--- NOTE | 2020-11-20 21:42 | NUR ---
SON IN LAW - PHIL MARADIAGA [phone].
[2020-11-21] VITALS (24 sets, daily range): BP systolic 80–115; BP diastolic 55–74; BMI 24.3
--- NOTE | 2020-11-21 04:00 | NUR ---
CRITICAL BLOOD CULTURE CALLED BY LAB FOR GRAM POSITIVE RODS. PAGED DR. BURNS.
--- NOTE | 2020-11-21 04:18 | NUR ---
DR. BURNS CALLED BACK AND ADVISED TO START LEVAQUIN 500MG IV Q24HR.
[2020-11-21 07:36] LABS: BASOPHILS 0.9 % (0-2); EOSINOPHILS 19.1 % (0-7); HEMATOCRIT 23.2 % (42.0-54.0); HEMOGLOBIN 7.6 g/dL (13.5-17.5); LYMPHOCYTES 28.2 % (15-50); MCH 30.1 pg (26.0-34.0); MCHC 32.6 g/dL (31.0-37.0); MCV 92.3 fL (80.0-100.0); MEAN PLATELET VOLUME 9.7 fL (7.4-10.4); MONOCYTES 8.9 % (2-11); NEUTROPHILS 42.9 % (40-80); PLATELET COUNT 151 10x3/uL (130-400); RBC 2.52 10x6/uL (4.20-6.10); RDW 14.9 % (11.5-14.5); WBC 4.1 10x3/uL (4.8-10.8)
[2020-11-21 07:44] LABS: ANION GAP 12.7 mmol/L (8-16); BILIRUBIN - TOTAL 0.25 mg/dL (0.2-1.3); CALCIUM 7.9 mg/dL (8.5-10.1); CREATININE - SERUM 6.1 mg/dL (0.6-1.3); PROTEIN - SERUM 5.9 g/dL (6.4-8.2)
[2020-11-21 07:47] LABS: POTASSIUM - SERUM 3.7 mmol/L (3.5-5.1)
--- NOTE | 2020-11-21 11:26 | NUR ---
CURRENT BP 87/60. LEVOPHEN RESUMED AT 5MCG/KG/MIN. DR. VIKAS GROVES FOR HOLD ORDER ON LOPRESSOR.
--- NOTE | 2020-11-21 11:55 | NUR ---
HOLD LOPRESSOR PER DR. BEAN.
--- NOTE | 2020-11-21 12:30 | NUR ---
CONSUMED SMALL AMOUNT OF RENAL DIET. ALERT AND ORIENTED X 3. WATCHING TV.
--- NOTE | 2020-11-21 17:20 | NUR ---
RECIEVED PT TO UNIT AT THIS TIME VIA BED ACCOMPANIED BY HOSPITAL STAFF. PT IS ALERT AND ORIENTED. TRANSFERRED SELF FROM ER BED TO ICU BED BY SCOOTING FROM ONE TO THE OTHER.
--- NOTE | 2020-11-21 17:33 | NUR ---
SPOKE WITH PTS SON IN LAW AFTER CONFIRMED WITH PT THAT IT WAS OKAY TO SPEAK WITH HIM. UPDATES PROVIDED. EMERGENCY CONTACT INFORMATION UPDATED.
[2020-11-22] VITALS (19 sets, daily range): BP systolic 91–155; BP diastolic 46–86; BMI 24.3
[2020-11-22 04:42] LABS: BASOPHILS 0.6 % (0-2); EOSINOPHILS 15.8 % (0-7); HEMATOCRIT 23.2 % (42.0-54.0); HEMOGLOBIN 7.6 g/dL (13.5-17.5); LYMPHOCYTES 32.2 % (15-50); MCH 30.1 pg (26.0-34.0); MCHC 32.6 g/dL (31.0-37.0); MCV 92.2 fL (80.0-100.0); MEAN PLATELET VOLUME 9.8 fL (7.4-10.4); MONOCYTES 9.4 % (2-11); RBC 2.52 10x6/uL (4.20-6.10); RDW 14.9 % (11.5-14.5); WBC 4.8 10x3/uL (4.8-10.8)
[2020-11-22 04:45] LABS: PLATELET COUNT 187 10x3/uL (130-400)
[2020-11-22 05:49] LABS: ANION GAP 16.1 mmol/L (8-16); CALCIUM 7.7 mg/dL (8.5-10.1); CREATININE - SERUM 6.4 mg/dL (0.6-1.3); POTASSIUM - SERUM 4.1 mmol/L (3.5-5.1)
--- NOTE | 2020-11-22 19:00 | NUR ---
BEDSIDE REPORT COMPLETED WITH OFF GOING NURSE. PT IS SITTING UP IN BED WATCHING TV AT THIS TIME. NO NEEDS VOICED NO S/S OF DISTRESS NOTED. DIALYSIS NURSE AT BEDSIDE COMPLETING DIALYSIS AT THIS TIME. WILL CONTINUE TO MONITOR.
--- NOTE | 2020-11-22 22:38 | NUR ---
RECIEVED REPPORT FROM KAY GUTIERREZ IN ICU. ARRIVED TO FLOOR IN W/C. TRANSFERED SELF TO BED. ALERT AND ORIENTED X4. REQUIRES STAND BY ASSIST TO AMBULATE. DENIES ANY NEEDS AT THIS TIME.
[2020-11-23 00:52] VITALS: BP 112/64
[2020-11-23 04:30] VITALS: BP 105/84
[2020-11-23 04:51] VITALS: BP 122/60
[2020-11-23 06:20] LABS: ANION GAP 13.6 mmol/L (8-16); CARBON DIOXIDE 26.1 mmol/L (21.0-32.0); CREATININE - SERUM 5.4 mg/dL (0.6-1.3); POTASSIUM - SERUM 3.7 mmol/L (3.5-5.1)
[2020-11-23 06:29] LABS: BASOPHILS 0.8 % (0-2); HEMATOCRIT 26.2 % (42.0-54.0); HEMOGLOBIN 8.6 g/dL (13.5-17.5); LYMPHOCYTES 30.7 % (15-50); MCH 30.2 pg (26.0-34.0); MCHC 33.1 g/dL (31.0-37.0); MCV 91.3 fL (80.0-100.0); MEAN PLATELET VOLUME 9.7 fL (7.4-10.4); MONOCYTES 9.5 % (2-11); PLATELET COUNT 183 10x3/uL (130-400); RBC 2.87 10x6/uL (4.20-6.10); RDW 15.2 % (11.5-14.5); WBC 4.5 10x3/uL (4.8-10.8)
[2020-11-23 08:00] VITALS: BP 107/64
[2020-11-23 12:00] VITALS: BP 71/45
--- NOTE | 2020-11-23 12:13 | NUR ---
PT BP 71/45. VICTORIA GAS STATION CLERK WITH RENAL ON FLOOR AND NOTIFIED. ORDERS GIVEN AND STARTED. PT ONLY STATES NOT FEELING WELL. EATING LUNCH AT PRESENT.
[2020-11-23 16:00] VITALS: BP 119/72
--- NOTE | 2020-11-23 19:00 | NUR ---
REPORT GIVEN BY JESSICA GUTIERREZ
--- NOTE | 2020-11-23 19:35 | NUR ---
ANSWERED PT LIGHT. HE WANTED A CUP OF ICE WHICH WAS TAKEN TO HIM. INTRODUCED SELF AT PT NURSE FOR THE NIGHT.
--- NOTE | 2020-11-23 20:30 | NUR ---
ASSESSMENT COMPLETED. PT IS A FAIRLY NEW DIALYSIS PT. HE WAS IN A RETIREMENT, BP WAS LOW AND HE FELL. HE IS BEING EVALUATED FOR DEHYDRATION AND HYPOTENSION. HE HAS A RIGHT UPPER ARM FISTULA AND HAS DIALYSIS ON MWF. THE THRILL IN HIS FISTULA IS GOOD.
--- NOTE | 2020-11-23 21:00 | NUR ---
IN PT ROOM TO GIVE MEDICATIONS. NOTED THAT HIS CREATININE IS 5.4 AND ELIQUIS WAS TO BE GIVEN. PAGED DR TO ASK ABOUT PUTTING THE MED ON HOLD. WILL WAIT FOR DR. ANSWER BEFORE GIVING THE MEDICATION.
--- NOTE | 2020-11-23 21:05 | NUR ---
SIDE RAILS UP FOR SAFETY. CALL LIGHT IS WITHIN REACH OF THE PT.
--- NOTE | 2020-11-23 22:24 | NUR ---
DR. EPPERSON CALLED ME BACK AFTER PAGING THE GROUP. EXPLAINED THE SITUATION WITH HER RE:MARY. SHE SAID TO HOLD IT UNTIL TOMORROW.
--- NOTE | 2020-11-24 | NUR ---
ROUNDS MADE ON PT. HE STATES HE IS OK. HE WANTS THE DOOR COMPLETELY CLOSED.
[2020-11-24 00:12] VITALS: BP 119/73
--- NOTE | 2020-11-24 03:36 | NUR ---
PT IS SELF CATHING HIMSELF. HE STATES HE DOES THIS ONE TIME A DAY.
[2020-11-24 04:58] LABS: BASOPHILS 0.2 % (0-2); EOSINOPHILS 14.1 % (0-7); HEMATOCRIT 24.5 % (42.0-54.0); MCH 29.7 pg (26.0-34.0); MCHC 32.5 g/dL (31.0-37.0); MCV 91.4 fL (80.0-100.0); MEAN PLATELET VOLUME 8.8 fL (7.4-10.4); MONOCYTES 8.5 % (2-11); NEUTROPHILS 47.2 % (40-80); PLATELET COUNT 197 10x3/uL (130-400); RBC 2.68 10x6/uL (4.20-6.10); RDW 15.1 % (11.5-14.5); WBC 4.6 10x3/uL (4.8-10.8)
[2020-11-24 05:03] VITALS: BP 108/65
[2020-11-24 05:13] LABS: ANION GAP 12.8 mmol/L (8-16); CALCIUM 7.8 mg/dL (8.5-10.1); CREATININE - SERUM 5.4 mg/dL (0.6-1.3); POTASSIUM - SERUM 3.8 mmol/L (3.5-5.1)
[2020-11-24 08:00] VITALS: BP 127/74
--- NOTE | 2020-11-24 09:34 | NUR ---
PATIENT AAOX4 RESP EVEN AND NON LABORED, NO S/S OF DISTRESS, MEDICATIONS ADMINSITERED, NO FURTHER NEEDS AT THIS TIME, CLIR, BLP
[2020-11-24 10:08] VITALS: Ht 172.7 cm; Wt 72.5 kg
--- NOTE | 2020-11-24 11:20 | NUR ---
I have reviewed this patient and I concur with the Shift Assessment completed by the Licensed Practical Nurse today this shift.
[2020-11-24 12:00] VITALS: BP 112/74
--- NOTE | 2020-11-24 13:24 | NUR ---
Nutrition Reassessment/Follow-up: Did not eat well yesterday but ate >50% of breakfast this AM, as well as a Nepro. C/o nausea without vomiting following breakfast; noted Zofran is ordered PRN. Also c/o diarrhea since admit; receiving abx. Diet: Renal ADA, Nepro QD No new wt; last wt: 159.8# (11/22) Labs noted: K+ 3.8, BUN 33, Cre 5.4, GFR 11, Ca 7.8 Meds noted: Florajen, Glucotrol, Pepcid, Calcitriol, Reglan, NS @ KVO Nutrition Intervention: -Nutrition needs, Dx & goals unchanged since initial assessment. -Encourage PO intake and honor food preferences within diet restrictions. -Monitor wt. -RD will follow up within 2-5 days.
--- NOTE | 2020-11-24 17:51 | NUR ---
PATIENT IV RESITED X1 STICK LEFT FOREARM 20G, NO COMPLICATIONS, CLIR, BLP
--- NOTE | 2020-11-24 20:13 | NUR ---
REPORT RECEIVED. PT A&O, UP IN BED WATCHING TV. NO S/S OF DISTRESS OBSERVED. RR EVEN & UNLABORED ON RA. SR 100 W/ PVC ON TELE. R ARM FISTULA, R ARM RESERVED. MWF DIALYSIS, RECEIVED DIALYSIS TODAY. OLIGURIA, AMBULATED TO BATHROOM. BED LOCKED AND LOWERED, CL IN REACH. WILL CONT POC.
[2020-11-24 20:50] VITALS: BP 115/71
[2020-11-25 00:23] VITALS: BP 94/50
[2020-11-25 04:58] VITALS: BP 109/71
--- NOTE | 2020-11-25 05:30 | NUR ---
PT IV INFILTRATED. RESITED 22G TO L HAND WITH LEVAQUIN INFUSING. X2 STICKS. PT TOLERATED W/O DISTRESS. NO NEEDS VOICED AT THIS TIME.
[2020-11-25 05:59] LABS: EOSINOPHILS 16.3 % (0-7); HEMATOCRIT 25.1 % (42.0-54.0); HEMOGLOBIN 8.3 g/dL (13.5-17.5); LYMPHOCYTES 31.9 % (15-50); MCHC 32.9 g/dL (31.0-37.0); MEAN PLATELET VOLUME 8.7 fL (7.4-10.4); MONOCYTES 9.8 % (2-11); PLATELET COUNT 216 10x3/uL (130-400); RBC 2.76 10x6/uL (4.20-6.10); RDW 15.2 % (11.5-14.5); WBC 4.7 10x3/uL (4.8-10.8)
[2020-11-25 06:22] LABS: ANION GAP 10.4 mmol/L (8-16); CARBON DIOXIDE 28.1 mmol/L (21.0-32.0); CREATININE - SERUM 4.3 mg/dL (0.6-1.3); POTASSIUM - SERUM 3.5 mmol/L (3.5-5.1)
--- NOTE | 2020-11-25 07:30 | NUR ---
PT IS RESTING IN BED WITH EYES CLOSED. RESPIRATIONS ARE EVEN AND UNLABORED. PT IS EASILY AROUSED WITH VERBAL STIMULATION AND IS AAO X 4 UPON AROUSAL. PT ANSWERS ALL QUESTIONS APPROPRIATELY. PT WITH RIGHT ARM RESERVE SIGN ON DOOR AND ABOVE BED. RIGHT ARM FISTULA IS NOTED. PIV TO LEFT FA IS KVO PER ORDER AND INFUSING WITHOUT DIFFICULTY. PT DENIES PRESENCE OF PAIN/N/V/DYSPNEA/SOB AT THIS TIME. PT DENIES PRESENCE OF DIZZINESS AT THIS TIME. BED IS IN THE LOWEST POSITION. CALL LIGHT AND BEDSIDE TABLE ARE WITHIN REACH. SIDE RAILS X 2. PT DENIES FURTHER NEEDS. WILL CONT TO MONITOR.
[2020-11-25 08:09] VITALS: BP 118/71
[2020-11-25 11:41] VITALS: BP 113/69
[2020-11-25 15:16] VITALS: BP 115/74
[2020-11-25 21:34] VITALS: BP 123/78
--- NOTE | 2020-11-26 03:10 | NUR ---
I have reviewed this patient and I concur with the Shift Assessment completed by the Licensed Practical Nurse today this shift.
[2020-11-26 03:50] VITALS: BP 108/73
[2020-11-26 06:58] LABS: EOSINOPHILS 19.6 % (0-7); HEMATOCRIT 26.7 % (42.0-54.0); LYMPHOCYTES 29.7 % (15-50); MCH 30.4 pg (26.0-34.0); MCHC 33.5 g/dL (31.0-37.0); MCV 90.5 fL (80.0-100.0); MEAN PLATELET VOLUME 8.3 fL (7.4-10.4); MONOCYTES 10.6 % (2-11); NEUTROPHILS 39.1 % (40-80); RBC 2.95 10x6/uL (4.20-6.10); RDW 15.1 % (11.5-14.5); WBC 4.5 10x3/uL (4.8-10.8)
--- NOTE | 2020-11-26 07:00 | NUR ---
PT LYING IN BED WITH EYES CLOSED AND HOB ELEVATED 30 DEGREES. RAISES TO VERBAL STIMULI. RESP EVEN AND UNLABORED. AAO X4. DENIES NEEDS AT THIS TIME. CLIR. BED IN LOWEST POSITION. SIDE RAILS X2
[2020-11-26 07:04] LABS: PLATELET COUNT 291 10x3/uL (130-400)
[2020-11-26 07:27] LABS: ANION GAP 12.7 mmol/L (8-16); CALCIUM 8.5 mg/dL (8.5-10.1); CARBON DIOXIDE 25.9 mmol/L (21.0-32.0); POTASSIUM - SERUM 3.6 mmol/L (3.5-5.1)
[2020-11-26 07:50] VITALS: BP 115/78
--- NOTE | 2020-11-26 09:25 | EC ---
PATIENT:DEIRDRE HAYDEN DATE OF SERVICE: 11/21/20 SEX: M MEDICAL RECORD: [id number] DATE OF : 59 LOCATION:D.M2 D.210 AGE OF PATIENT: 64 ADMISSION DATE: 11/21/20 REFERRING PHYSICIAN: INTERPRETING PHYSICIAN: SOLOMON HUNT MD ECHOCARDIOGRAM REPORT ECHO CHARGES 5 ECHO LIMITED Date: 11/24/20 CLINICAL DIAGNOSIS: CARDIOMYOPATHY ECHOCARDIOGRAPHIC MEASUREMENTS (adult normal given) AC root (d.<3.7cm) 0 cm LV Septum d (<1.2 cm> 0 cm Valve Excursion 0 cm LV Septum (systole) 0 cm Left Atria (s.<4.0cm> 0 cm LVPW d(<1.2cm) 0 cm RV (d.<2.3cm) 0 cm LVPW (sytole) 0 cm LV diastole(<5.6CM) 0 cm MV E-F(>70mm/sec) 0 cm LV systole 0 cm LVOT Diameter 0 cm MV exc.(>10mm) 0 cm Est.ejection fraction (50-75%) 0 % DOPPLER: LVIT cm/sec A 0 cm/sec E 0 cm/sec LA 0 cm/sec RVSP 0 mmHg LVOT 0 cm/sec AOP1/2T 0 m/s Asc. Ao 0 cm/sec RVOT 0 cm/sec RA 0 cm/sec PA 0 cm/sec AV Gradient Peak 0 mmHg AV Mean 0 mmHg AV Area 0 cm MV Gradient Peak 0 mmHg MV Mean 0 mmHg MV Area 0 cm COMMENTS: Social Director: iLo SAVANAH ALEISHA Shrinker: 3 Dr. Villegas TAPE# Pericardial Effusion N DATE OF SERVICE: Limited color flow, 2D. FINDINGS: Grossly LVH appears present. LV internal dimensions are normal. Difficult to fully assess focal wall motion; however, EF appears to be lower limits of normal to mildly reduced 45% to 50%. Aortic valve appears to be tricuspid with good valve excursion. Left atrium appears normal. Mitral valve appears grossly normal. Trace MR. Right-sided chamber grossly normal. Trace TR. ECHOCARDIOGRAM REPORT [id number] DEIRDRE HAYDEN TRANSINT:[id number] Voice Confirmation ID: [id number] DOCUMENT ID: [id number] SOLOMON HUNT MD at 0925 CC: [id number] DICTATION DATE: 11/25/201717 LOGGING OPERATIONS INSPECTOR: 11/25/20 183 ADM IN [facility] [address] [facility]
[2020-11-26 10:55] VITALS: BP 146/87
--- NOTE | 2020-11-26 12:19 | NUR ---
Nutrition Follow-up: Ate 75% of breakfast this AM. HD MWF. Noted plans to d/c soon. Diet: Renal ADA, Nepro QD No new wt; last wt: 159.8# (11/22) Labs noted: Na 135, K+ 3.6, BUN 25, Cre 5.0, GFR 13 Meds noted: Florajen, Glucotrol, Calcitriol, Reglan -Encourage PO intake and honor food preferences within diet restrictions. -Need new wt. -RD will follow up within 4-5 days.
--- NOTE | 2020-11-26 12:40 | NUR ---
PT LEFT UNIT FOR DIALYSIS ACCOMPANIED BY HOSPITAL STAFF
--- NOTE | 2020-11-26 13:55 | NUR ---
I have reviewed this patient and I concur with the Shift Assessment completed by the Licensed Practical Nurse today this shift.
[2020-11-26] MEDS ORDERED: MIDODRINE HCL5 MG PO (16:38)
[2020-11-26 17:13] VITALS: BP 113/68
--- NOTE | 2020-11-26 17:30 | NUR ---
REPORT CALLED TO [facility] OLIVER[facility]. NURSE STATED THAT [facility] WILL BE BACK FROM [place] SOON TO TRANSPORT PT TO FACILITY AND WOULD CALL WHEN THEY WERE AVAILABLE TO GET HIM.
--- NOTE | 2020-11-26 19:40 | NUR ---
CALLED JASON OLIVEROS AND SPOKE WITH KRYSTA. SHE STATED TRANSPORT IS ON THE WAY TO PICK PT UP AND TRANSPORT HIM TO FACILITY.
--- NOTE | 2020-11-26 20:07 | NUR ---
IV DC'D WITH [facility]. TRANSPORT FROM [facility]. TO [place] VIA W/C.
== END 2020-11-26 20:08 | DRG 871 ==
LOC: D.ER 12:09 → OBSVTIME 14:40 → D.EDHOLD 14:40 → D.ICU 11-21 02:14 → D.M2 11-21 02:14 → D.EDHOLD 11-21 02:20 → D.ICU 11-21 16:09 → D.M2 11-22 21:45
PROVIDERS: Family Medicine; Internal Medicine Nephrology; ADMIT Legal Medicine; ATTEND Legal Medicine
PROC: 5A1D70Z Performance of Urinary Filtration, Intermittent, Less than 6 Hours Per Day (ICD-10-PCS; principal; 2020-11-22)
DX: A41.9 Sepsis, unspecified organism (principal); N18.6 End stage renal disease; I12.0 Hypertensive chronic kidney disease with stage 5 chronic kidney disease or end stage renal disease; Z94.0 Kidney transplant status; N39.0 Urinary tract infection, site not specified; E11.22 Type 2 diabetes mellitus with diabetic chronic kidney disease; Z99.2 Dependence on renal dialysis; Z79.84 Long term (current) use of oral hypoglycemic drugs; K21.9 Gastro-esophageal reflux disease without esophagitis; R56.9 Unspecified convulsions; G89.29 Other chronic pain; M54.9 Dorsalgia, unspecified; D63.1 Anemia in chronic kidney disease; E11.65 Type 2 diabetes mellitus with hyperglycemia; I25.10 Atherosclerotic heart disease of native coronary artery without angina pectoris; I25.5 Ischemic cardiomyopathy

== ENCOUNTER 2020-12-02 22:39 | Inpatient (IN) | payer MEDICARE ==
[~2020-12-02] VITALS: Ht 152.4 cm; Wt 77.3 kg
[~2020-12-02 22:39] MED LIST changes: +MIDODRINE HCL5 MG PO
[2020-12-02 23:32] LABS: BASOPHILS 1.3 % (0-2); EOSINOPHILS 19.9 % (0-7); HEMATOCRIT 27.2 % (42.0-54.0); HEMOGLOBIN 8.7 g/dL (13.5-17.5); LYMPHOCYTES 29.9 % (15-50); MCH 29.4 pg (26.0-34.0); MCHC 32.2 g/dL (31.0-37.0); MCV 91.5 fL (80.0-100.0); MEAN PLATELET VOLUME 8.4 fL (7.4-10.4); MONOCYTES 9.1 % (2-11); NEUTROPHILS 39.8 % (40-80); PLATELET COUNT 262 10x3/uL (130-400); RBC 2.97 10x6/uL (4.20-6.10); WBC 6.9 10x3/uL (4.8-10.8)
[2020-12-02 23:39] LABS: ANION GAP 11.9 mmol/L (8-16); CALCIUM 8.7 mg/dL (8.5-10.1); CARBON DIOXIDE 27.7 mmol/L (21.0-32.0); CREATININE - SERUM 4.3 mg/dL (0.6-1.3); POTASSIUM - SERUM 3.6 mmol/L (3.5-5.1)
[2020-12-02 23:40] LABS: APTT 41.8 SECONDS (22.8-39.4); INR 1.38 (0.85-1.17); PROTIME 15.8 SECONDS (11.6-15.0)
[2020-12-02 23:57] LABS: ALBUMIN 2.3 g/dL (3.4-5.0); BILIRUBIN - TOTAL 0.46 mg/dL (0.2-1.3); C-REACTIVE PROTEIN 17.7 mg/dL (0.0-0.9); MAGNESIUM - SERUM 1.8 mg/dL (1.8-2.4); PROTEIN - SERUM 6.8 g/dL (6.4-8.2); THYROID STIMULATING HORMONE 1.12 uIU/mL (0.36-3.74); TROPONIN-I 0.037 ng/mL (0.000-0.060)
[2020-12-03 00:01] VITALS: BP 94/63
--- NOTE | 2020-12-03 00:45 | NUR ---
PATIENT IS GETTING HD, DUE TO RENAL FALIURE, HOWEVER HE STILL PRODUCES URINE, AND HAS TO PERFORM 3-4 IN AND OUT SELF CATHS A DAY, FAMILY REPORTS THAT HE HAS NOT BEEN DOING THE HE IS ONLY DOING IT ONCE A DAY AND FEELS LIKE THE URINE RETENTION IS CAUSING URINE INFECTIONS, THE FAMILY AND THE PATIENT REQUESTED A INDWELLING BARON DURING THE HOSPITAL STAY TO HELP WITH HIS POSSIBLE INFECTIONS, FAMILY WAS INFORMED OF THE INCREASED RISKS OF HAVING AN INDWELLIN BARON, THEY UNDERSTOOD BUT STILL WANTED ONE. BARON WAS PLACED AT FAMILIES AND PATIENTS REQUEST.
[2020-12-03 02:00] VITALS: BP 106/64
[2020-12-03 02:12] LABS: BACTERIA FEW HPF (<MOD); BILIRUBIN NEGATIVE (NEGATIVE); KETONE NEGATIVE mg/dL (< 1+); NITRITE NEGATIVE (NEGATIVE); PH 6.5 (5.0-8.0); SQUAMOUS EPITHELIAL 1 HPF (0-4); UROBILINOGEN NORMAL mg/dL (< 2); WHITE CELLS - URINE 18 HPF (0-1)
[2020-12-03 06:33] VITALS: BP 105/59
[2020-12-03 13:58] LABS: INFLUENZA TYPE A NEGATIVE (NEGATIVE); INFLUENZA TYPE B NEGATIVE (NEGATIVE)
[2020-12-03 14:27] VITALS: BP 118/73; BMI 26.0
[2020-12-03 20:00] VITALS: BP 108/65
[2020-12-04] VITALS (7 sets, daily range): BP systolic 99–125; BP diastolic 65–73; Ht 152.4 cm; Wt 77.3 kg
--- NOTE | 2020-12-04 03:29 | NUR ---
I have reviewed this patient and I concur with the Shift Assessment completed by the Licensed Practical Nurse today this shift.
[2020-12-04 10:28] LABS: ANION GAP 8.2 mmol/L (8-16); CARBON DIOXIDE 30.2 mmol/L (21.0-32.0); CREATININE - SERUM 4.1 mg/dL (0.6-1.3); POTASSIUM - SERUM 3.4 mmol/L (3.5-5.1)
[2020-12-04 10:33] LABS: HEMATOCRIT 28.1 % (42.0-54.0); HEMOGLOBIN 9.2 g/dL (13.5-17.5); MCH 29.5 pg (26.0-34.0); MCHC 32.7 g/dL (31.0-37.0); MCV 90.1 fL (80.0-100.0); MEAN PLATELET VOLUME 8.5 fL (7.4-10.4); PLATELET COUNT 236 10x3/uL (130-400); RBC 3.12 10x6/uL (4.20-6.10); RDW 15.3 % (11.5-14.5); WBC 5.5 10x3/uL (4.8-10.8)
[2020-12-04 11:45] LABS: EOSINOPHILS 24 % (0-7); LYMPHOCYTES 32 % (15-50); MONOCYTES 2 % (2-11); NEUTROPHILS 39 % (40-80); PLATELET ESTIMATE NORMAL
[2020-12-04 11:46] LABS: ANISOCYTOSIS OCC
--- NOTE | 2020-12-04 21:28 | NUR ---
INITIAL ROUNDS COMPLETED AT 1935 HRS. PT DENIED ANY DISCOMFORT. DAUGHTER AT BEDSIDE. ASSESSMENT COMPLETED AT 2015 HRS. SR PER CM HR 92. ALERT AND ORIENTED TO PERSON, PLACE AND TIME. BENITO. PALPABLE PERIPHERAL PULSES. O2 4LNC. LUNGS DIMINISHED IN BASES BILAT. COUGH NOTED. IV TO LFA SL. R ARM AV FISTULA WITH GOOD BRUIT AND THRIL. BRUISING NOTED TO BILAT ARMS, OUTER ASPECT OF R LOWER LEG. BARON DRAINING SCANT DARK URINE. PM MEDS GIVEN PER ORDERS. PT CURRENTLY RESTING WITH EYES CLOSED. RESP EVEN AND REGULAR. SR UP X2,CALL LIGHT WITHIN REACH.
--- NOTE | 2020-12-04 22:53 | NUR ---
PT RESTING WITH EYES CLOSED. RESP EVEN AND REGULAR. SAUGHTER AT BEDSIDE. SR UP X2, CALL LIGHT WITHIN REACH.
--- NOTE | 2020-12-05 00:04 | NUR ---
PT RESTING WITH EYES CLOSED. RESP EVEN AND REGULAR. SR UP X2, CALL LIGHT WITHIN REACH AND DAUGHTER AT BEDSIDE.
[2020-12-05 02:01] VITALS: BP 107/69
--- NOTE | 2020-12-05 03:09 | NUR ---
PT RESTING WITH EYES CLOSED. RESP EVEN AND REGULAR. SR UP X2, CALL LIGHT WITHIN REACH AND DAUGHTER AT BEDSIDE.
--- NOTE | 2020-12-05 04:24 | NUR ---
PT RESTING WITH EYES CLOSED. RESP EVEN AND REGULAR. SR UP X2, CALL LIGHT WITHIN REACH AND DAUGHTER AT BEDSIDE.
[2020-12-05 06:10] VITALS: BP 115/73
--- NOTE | 2020-12-05 06:32 | NUR ---
VSS THROUGHOUT NGIHT. SR PER CM. DAUGHTER STATED THAT PT WAS TALKING CRAZY IN HIS SLEEP. PT ANSWERED ALL QUESTIONS APPROPRIATELY WHEN ASSESSED, NEEDS MET; WILL CONTINUE TO MONITOR.
[2020-12-05 07:06] LABS: BASOPHILS 1.4 % (0-2); EOSINOPHILS 19.1 % (0-7); HEMATOCRIT 25.9 % (42.0-54.0); HEMOGLOBIN 8.4 g/dL (13.5-17.5); LYMPHOCYTES 26.7 % (15-50); MCH 29.3 pg (26.0-34.0); MCHC 32.4 g/dL (31.0-37.0); MCV 90.5 fL (80.0-100.0); MONOCYTES 11.2 % (2-11); NEUTROPHILS 41.6 % (40-80); PLATELET COUNT 232 10x3/uL (130-400); RBC 2.86 10x6/uL (4.20-6.10)
[2020-12-05 07:10] LABS: ANION GAP 14.2 mmol/L (8-16); CALCIUM 8.8 mg/dL (8.5-10.1); CARBON DIOXIDE 25.5 mmol/L (21.0-32.0); CREATININE - SERUM 4.9 mg/dL (0.6-1.3); POTASSIUM - SERUM 3.7 mmol/L (3.5-5.1)
--- NOTE | 2020-12-05 07:20 | NUR ---
RECIEVE REPORT. RESTING IN BED WITH EYES CLOSED. DAUGHTER AT BEDSIDE. DENIES ANY NEEDS. CONTINUE PLAN OF CARE AND SAFETY PRECAUTIONS.
[2020-12-05 08:12] VITALS: BP 128/78
[2020-12-05 11:23] VITALS: BP 126/74
--- NOTE | 2020-12-05 12:47 | MORECARE ---
CASE MANAGEMENT DISCHARGE SUMMARY PATIENT: DEIRDRE HAYDEN UNIT: [id number] ADM DATE: 12/03/20 AGE: 64 : 59 SEX: M ROOM/BED: D.2139 AUTHOR: MI PACK PHYSICIAN: REFERRING PHYSICIAN: SIVA BEAN MD DATE OF SERVICE: 12/05/20 Case Management Discharge Planning Summary DCP REVIEW SUMMARY ANTICIPATED D/C DATE: EXPECTED LOS : CASE STATUS: DCP Initiated INITIAL REVIEW: 12/03/2020 INITIAL REVIEWER: Tao Neal FINAL DISCHARGE DISPOSITION: : FINAL REVIEWER: FINAL REVIEW DATE: DCP Focus Questions & Answers QUESTION: ANSWER : PATIENT: DEIRDRE HAYDEN ENCOUNTER: [id number] MEDICAL RECORD#: [id number] ADMISSION DATE: 12/03/2020 DISCHARGE DATE: ATTENDING MD: SIVA FORD : AGE: 64 MARITAL STATUS: D DC PLAN ID: [id number] FACILITY: [facility] PRINTED ON: 12/05/20 12:47 CT All edits/amendments must be made on the electronic document DICTATION DATE: 12/05/20 124 SUPERVISOR ENROBING: DM 12/05/20 1247 RPT#: [id number] DC DATE: STATUS: ADM IN [facility] [address] [place] [address] END OF REPORT
--- NOTE | 2020-12-05 12:58 | MORECARE ---
CASE MANAGEMENT DISCHARGE SUMMARY PATIENT: DEIRDRE HAYDEN UNIT: [id number] ADM DATE: 12/03/20 AGE: 64 : 59 SEX: M ROOM/BED: D.2139 AUTHOR: MI PACK PHYSICIAN: REFERRING PHYSICIAN: SIVA BEAN MD DATE OF SERVICE: 12/05/20 Case Management Discharge Planning Summary DCP REVIEW SUMMARY ANTICIPATED D/C DATE: EXPECTED LOS : CASE STATUS: DCP Initiated INITIAL REVIEW: 12/03/2020 INITIAL REVIEWER: Tao Neal FINAL DISCHARGE DISPOSITION: : FINAL REVIEWER: FINAL REVIEW DATE: DCP Focus Questions & Answers QUESTION: ANSWER : PATIENT: DEIRDRE HAYDEN ENCOUNTER: [id number] MEDICAL RECORD#: [id number] ADMISSION DATE: 12/03/2020 DISCHARGE DATE: ATTENDING MD: SIVA FORD : AGE: 64 MARITAL STATUS: D DC PLAN ID: [id number] FACILITY: [facility] PRINTED ON: 12/05/20 12:58 CT All edits/amendments must be made on the electronic document DICTATION DATE: 12/05/20 125 FRONT END ASSISTANT: DM 12/05/20 1258 RPT#: [id number] DC DATE: STATUS: ADM IN [facility] [address] [place] [address] END OF REPORT
--- NOTE | 2020-12-05 13:29 | MORECARE ---
CASE MANAGEMENT DISCHARGE SUMMARY PATIENT: DEIRDRE HAYDEN UNIT: [id number] ADM DATE: 12/03/20 AGE: 64 : 59 SEX: M ROOM/BED: D.2139 AUTHOR: MI PACK PHYSICIAN: REFERRING PHYSICIAN: SIVA BEAN MD DATE OF SERVICE: 12/05/20 Case Management Discharge Planning Summary COMMENTS ENTERED DATE: 12/05/20 13:28 CT COMMENT TYPE: Discharge Planning REVIEWER: Tao Neal CM met with patient and daughter, Rosa Allison to complete DC plan and to evaluate needs. Patient currently lives at [facility] but will discharge to his daughter, Ying [place], [place] [address]. Rosa stated that she and her sister will take care of their father and desire Home Health, a hospital bed, a bedside commode, and oxygen. Rosa stated that she and her sister will take their father to his dialysis appointments. The patient stated that he does not want hospice at this time. The patient is dependent for ADL's, dressing, eating, bathing. Rosa stated that the home is safe and has electricity and running water. Bk stated that the patient has a rollator walker. Patient stated that he has no problems paying for medications and he fills his medications at [facility]. Patient stated that his primary care physician is Dr. Bean. At discharge, the patient plans to live with his daughter, Ying and feels this is a safe discharge. CM discussed availability of home health, rehab services, and medical equipment. Patient declined SNF and IPR. MICHELLE signed and placed in chart. CM spoke with Evette with [facility]. Clinicals Faxed. Evette stated that start of care may be as late as Sunday. Patient voiced no other needs at this time and is satisfied with DC plan. DC IMM delivered, explained, signed by the patient, and placed in chart. Signed form also left with the patient. CM will continue to follow and will assist as needed with dc plans/needs. DCP REVIEW SUMMARY ANTICIPATED D/C DATE: EXPECTED LOS : CASE STATUS: DCP Initiated INITIAL REVIEW: 12/03/2020 INITIAL REVIEWER: Tao Neal FINAL DISCHARGE DISPOSITION: : FINAL REVIEWER: FINAL REVIEW DATE: DCP Focus Questions & Answers DCP Evaluation QUESTION: ANSWER Patient gives permission to discuss discharge plans with: (name, relationship and number) : daughter, Ying Day, Patient's ability to cope with chronic illness : d. No chronic illness Patient's current cognitive status: : *Oriented to person, place, situation, time and present Family / Caregiver's ability to cope with chronic illness: : a. Adequate (ability to meet patient's medical needs, ensures patient attends medical appts.) Patient and/or caregiver agree upon recommended discharge plan? : Yes Physical Status: : Mobility impaired Physical Status: : Partial care dependence Family / Caregiver's ability to cope with chronic illness: : a. Adequate (ability to meet patient's medical needs, ensures patient attends medical appts.) Functional screen assessment: : Basic needs can adequately be met by self Does the patient have the ability to pay for or attain post discharge needs / services? : Yes Partial Dependence, assistance required for: : Ambulation / Mobility Partial Dependence, assistance required for: : Bathing Partial Dependence, assistance required for: : Dressing Partial Dependence, assistance required for: : Eating Living Arrangements: : Home with Extended Family Is there a likelihood that the patient will require additional services to return to the preadmission environment? : Yes Equipment needed for post hospitalization: : Bedside Commode Equipment needed for post hospitalization: : Home Oxygen with Nasal Cannula Equipment needed for post hospitalization: : Hospital Bed Baseline cognitive status: : *Oriented to person, place, situation, time and present Patient with capacity for self-care or can be cared for in same environment as prior to hospitalization? : Yes Physical environment modification needed / anticipated for discharge: : No Medication Management: : Patient states can afford medications Medication Management: : Patient states can read and understand medication labels Pharmacy name(s): : [facility] Does Patient have transportation to get home and to follow-up medical appointments when discharged from the hospital? : Yes Would patient like to participate in any Care Coordination programs (if applicable): : Not applicable Does the patient have electricity at home? : Yes Does the patient have running water in their house? : Yes Equipment in use: : Walker - Rollator Mental health screen: : No mental health history DCP Re-evaluation QUESTION: ANSWER Would patient like to participate in any Care Coordination programs (if applicable): : Not applicable PATIENT: DEIRDRE HAYDEN ENCOUNTER: [id number] MEDICAL RECORD#: [id number] ADMISSION DATE: 12/03/2020 DISCHARGE DATE: ATTENDING MD: SIVA FORD : AGE: 64 MARITAL STATUS: D DC PLAN ID: [id number] FACILITY: [facility] PRINTED ON: 12/05/20 13:29 CT All edits/amendments must be made on the electronic document DICTATION DATE: 12/05/20 132 BROTH MIXER: PERLA 12/05/20 1329 RPT#: [id number] DC DATE: STATUS: ADM IN [facility] [address] [place] [address] END OF REPORT
--- NOTE | 2020-12-05 15:01 | NUR ---
ALERT. RESTING IN BED. FAMILY AT BEDSIDE. TEMP SPIKING. BLANKETS AND SHEET REMOVED. ICE PACKS PLACED UNDER ARMS. CURRENT TEMP 102.3.
[2020-12-05 15:30] VITALS: BP 111/61
--- NOTE | 2020-12-05 19:20 | NUR ---
REPORT RECEIVED. PATIENT IS AAOX4, LYING IN SUPINE POSITION. FAMILY MEMBER AT BEDSIDE. NO S/S OF DISTRESS OBSERVED, RR EVEN AND UNLABORED ON 4L O2 VIA NC. PIV TO LT FA, SL. F/C PATENT, DRAINING BY GRAVITY TO RT SIDE OF BED. PATIENT DENIES NEEDS AT THIS TIME. CL IN REACH, BED LOCKED AND LOWERED. WILL CPOC.
[2020-12-05 20:00] VITALS: BP 88/48
[2020-12-06] VITALS: BP 103/67
[2020-12-06 04:00] VITALS: BP 103/64
[2020-12-06 06:32] LABS: BASOPHILS 1.3 % (0-2); EOSINOPHILS 14.6 % (0-7); HEMATOCRIT 26.8 % (42.0-54.0); HEMOGLOBIN 8.7 g/dL (13.5-17.5); MCH 29.3 pg (26.0-34.0); MCHC 32.3 g/dL (31.0-37.0); MCV 90.7 fL (80.0-100.0); MEAN PLATELET VOLUME 8.7 fL (7.4-10.4); MONOCYTES 12.4 % (2-11); NEUTROPHILS 43.7 % (40-80); PLATELET COUNT 254 10x3/uL (130-400); RBC 2.96 10x6/uL (4.20-6.10); WBC 6.1 10x3/uL (4.8-10.8)
[2020-12-06 06:59] LABS: ANION GAP 15.6 mmol/L (8-16); CARBON DIOXIDE 25.7 mmol/L (21.0-32.0); CREATININE - SERUM 5.8 mg/dL (0.6-1.3)
[2020-12-06 07:00] LABS: POTASSIUM - SERUM 4.3 mmol/L (3.5-5.1)
--- NOTE | 2020-12-06 07:00 | NUR ---
RECEIVED REPORT. ASSUMED CARE OF PATIENT. PATIENT RESTING IN BED, PRODUCTIVE COUGH NOTED. CALL LIGHT WITHIN REACH. WHITE BOARD UPDATED, BEDSIDE SHIFT REPORT COMPLETE. NO DISTRESS.
[2020-12-06 07:44] VITALS: BP 112/71
--- NOTE | 2020-12-06 07:45 | NUR ---
ASSISTED OOB TO BEDSIDE COMMONDE AT THIS TIME. MALE VISITOR AT BEDSIDE. NO DISTRESS.
--- NOTE | 2020-12-06 10:15 | NUR ---
PATIENT TO DIALYSIS VIA BED. NO DISTRESS UPON LEAVING UNIT FOR TREATMENT.
--- NOTE | 2020-12-06 13:00 | NUR ---
Nutrition Follow-up: Ate ~75% of breakfast this AM. Denies N/V, chewing/swallowing difficulty. Unsure of last BM. Agreed to 1 Nepro/day. HD MWF. Diet: Renal PO intake: 49% avg x 7 meals Wt: 170# (12/04) Labs noted: K+ 4.3 Meds noted: Reglan, Zofran, Pepcid, Glucotrol -Encourage PO intake and honor food preferences within diet restrictions. -+Nepro QD. -Need new wt. -RD will follow up within 3-4 days.
--- NOTE | 2020-12-06 13:59 | NUR ---
PATIENT RETURNED TO UNIT, TOLERATED DIALYSIS WELL. NO DISTRESS.
[2020-12-06 15:28] VITALS: BP 102/63; BP 161/83
--- NOTE | 2020-12-06 16:45 | MORECARE ---
CASE MANAGEMENT DISCHARGE SUMMARY PATIENT: DEIRDRE HAYDEN UNIT: [id number] ADM DATE: 12/03/20 AGE: 64 : 59 SEX: M ROOM/BED: D.2106 AUTHOR: RAMONE,DOC PHYSICIAN: REFERRING PHYSICIAN: SIVA BEAN MD DATE OF SERVICE: 12/06/20 Case Management Discharge Planning Summary COMMENTS ENTERED DATE: 12/06/20 16:36 CT COMMENT TYPE: Discharge Planning REVIEWER: Moriah Freitas Daughter contacted CM requesting information on Hospice. MICHELLE completed [facility]. CM called and contacted [facility] and asked them for someone to come speak with family. ENTERED DATE: 12/05/20 13:28 CT COMMENT TYPE: Discharge Planning REVIEWER: Tao Neal CM met with patient and daughter, Rosa Allison to complete DC plan and to evaluate needs. Patient currently lives at [place] but will discharge to his daughter, Ying Day, [place] [address]. Rosa stated that she and her sister will take care of their father and desire Home Health, a hospital bed, a bedside commode, and oxygen. Rosa stated that she and her sister will take their father to his dialysis appointments. The patient stated that he does not want hospice at this time. The patient is dependent for ADL's, dressing, eating, bathing. Rosa stated that the home is safe and has electricity and running water. Bk stated that the patient has a rollator walker. Patient stated that he has no problems paying for medications and he fills his medications at [facility]. Patient stated that his primary care physician is Dr. Bean. At discharge, the patient plans to live with his daughter, Ying and feels this is a safe discharge. CM discussed availability of home health, rehab services, and medical equipment. Patient declined SNF and IPR. MICHELLE signed and placed in chart. CM spoke with Evette with [facility]. Clinicals Faxed. Evette stated that start of care may be as late as Sunday. Patient voiced no other needs at this time and is satisfied with DC plan. DC IMM delivered, explained, signed by the patient, and placed in chart. Signed form also left with the patient. CM will continue to follow and will assist as needed with dc plans/needs. DCP REVIEW SUMMARY ANTICIPATED D/C DATE: EXPECTED LOS : CASE STATUS: DCP Initiated INITIAL REVIEW: 12/03/2020 INITIAL REVIEWER: Tao Neal FINAL DISCHARGE DISPOSITION: : FINAL REVIEWER: FINAL REVIEW DATE: DCP Focus Questions & Answers DCP Evaluation QUESTION: ANSWER Patient gives permission to discuss discharge plans with: (name, relationship and number) : daughterYing, Patient's ability to cope with chronic illness : d. No chronic illness Patient's current cognitive status: : *Oriented to person, place, situation, time and present Family / Caregiver's ability to cope with chronic illness: : a. Adequate (ability to meet patient's medical needs, ensures patient attends medical appts.) Patient and/or caregiver agree upon recommended discharge plan? : Yes Physical Status: : Mobility impaired Physical Status: : Partial care dependence Family / Caregiver's ability to cope with chronic illness: : a. Adequate (ability to meet patient's medical needs, ensures patient attends medical appts.) Functional screen assessment: : Basic needs can adequately be met by self Does the patient have the ability to pay for or attain post discharge needs / services? : Yes Partial Dependence, assistance required for: : Ambulation / Mobility Partial Dependence, assistance required for: : Bathing Partial Dependence, assistance required for: : Dressing Partial Dependence, assistance required for: : Eating Living Arrangements: : Home with Extended Family Is there a likelihood that the patient will require additional services to return to the preadmission environment? : Yes Equipment needed for post hospitalization: : Bedside Commode Equipment needed for post hospitalization: : Home Oxygen with Nasal Cannula Equipment needed for post hospitalization: : Hospital Bed Baseline cognitive status: : *Oriented to person, place, situation, time and present Patient with capacity for self-care or can be cared for in same environment as prior to hospitalization? : Yes Physical environment modification needed / anticipated for discharge: : No Medication Management: : Patient states can afford medications Medication Management: : Patient states can read and understand medication labels [facility] name[facility]): : [facility] Does Patient have transportation to get home and to follow-up medical appointments when discharged from the hospital? : Yes Would patient like to participate in any Care Coordination programs (if applicable): : Not applicable Does the patient have electricity at home? : Yes Does the patient have running water in their house? : Yes Equipment in use: : Walker - Rollator Mental health screen: : No mental health history DCP Re-evaluation QUESTION: ANSWER Would patient like to participate in any Care Coordination programs (if applicable): : Not applicable PATIENT: DEIRDRE HAYDEN ENCOUNTER: [id number] MEDICAL RECORD#: [id number] ADMISSION DATE: 12/03/2020 DISCHARGE DATE: ATTENDING MD: SIVA FORD : AGE: 64 MARITAL STATUS: D DC PLAN ID: [id number] FACILITY: [facility] PRINTED ON: 12/06/20 16:44 CT All edits/amendments must be made on the electronic document DICTATION DATE: 12/06/201643 CLAIMS ADJUSTOR: PERLA 12/06/201643 RPT#: [id number] DC DATE: STATUS: ADM IN [facility] [address] [place] [address] END OF REPORT
[2020-12-06 20:00] VITALS: BP 104/68
[2020-12-07] VITALS: BP 95/62
--- NOTE | 2020-12-07 03:30 | NUR ---
I have reviewed this patient and I concur with the Shift Assessment completed by the Licensed Practical Nurse today this shift.
[2020-12-07 04:00] VITALS: BP 99/61
[2020-12-07 07:11] LABS: BASOPHILS 1.3 % (0-2); EOSINOPHILS 15.3 % (0-7); HEMATOCRIT 28.2 % (42.0-54.0); HEMOGLOBIN 9.1 g/dL (13.5-17.5); LYMPHOCYTES 26.2 % (15-50); MCH 29.3 pg (26.0-34.0); MCHC 32.3 g/dL (31.0-37.0); MCV 90.7 fL (80.0-100.0); MEAN PLATELET VOLUME 9.2 fL (7.4-10.4); MONOCYTES 9.7 % (2-11); NEUTROPHILS 47.5 % (40-80); PLATELET COUNT 238 10x3/uL (130-400); RBC 3.11 10x6/uL (4.20-6.10); RDW 15.1 % (11.5-14.5); WBC 5.1 10x3/uL (4.8-10.8)
[2020-12-07 07:26] LABS: ANION GAP 14.1 mmol/L (8-16); CALCIUM 8.6 mg/dL (8.5-10.1); CARBON DIOXIDE 27.5 mmol/L (21.0-32.0); CREATININE - SERUM 4.8 mg/dL (0.6-1.3); POTASSIUM - SERUM 3.6 mmol/L (3.5-5.1)
[2020-12-07 08:00] VITALS: BP 104/71
[2020-12-07 12:00] VITALS: BP 110/65
[2020-12-07 15:58] VITALS: BP 104/71
--- NOTE | 2020-12-07 16:05 | MORECARE ---
CASE MANAGEMENT DISCHARGE SUMMARY PATIENT: DEIRDRE HAYDEN UNIT: [id number] ADM DATE: 12/03/20 AGE: 64 : 59 SEX: M ROOM/BED: D.2106 AUTHOR: RAMONE,DOC PHYSICIAN: REFERRING PHYSICIAN: SIVA BEAN MD DATE OF SERVICE: 12/07/20 Case Management Discharge Planning Summary COMMENTS ENTERED DATE: 12/06/20 16:36 CT COMMENT TYPE: Discharge Planning REVIEWER: Moriah Freitas Daughter contacted CM requesting information on Hospice. MICHELLE completed [facility]. CM called and contacted [facility] and asked them for someone to come speak with family. ENTERED DATE: 12/05/20 13:28 CT COMMENT TYPE: Discharge Planning REVIEWER: Tao Neal CM met with patient and daughter, Rosa Allison to complete DC plan and to evaluate needs. Patient currently lives at [place] but will discharge to his daughter, Y[place] Day, [place] [address]. Rosa stated that she and her sister will take care of their father and desire Home Health, a hospital bed, a bedside commode, and oxygen. Rosa stated that she and her sister will take their father to his dialysis appointments. The patient stated that he does not want hospice at this time. The patient is dependent for ADL's, dressing, eating, bathing. Rosa stated that the home is safe and has electricity and running water. Bk stated that the patient has a rollator walker. Patient stated that he has no problems paying for medications and he fills his medications at [facility]. Patient stated that his primary care physician is Dr. Bean. At discharge, the patient plans to live with his daughter, Ying and feels this is a safe discharge. CM discussed availability of home health, rehab services, and medical equipment. Patient declined SNF and IPR. MICHELLE signed and placed in chart. CM spoke with Evette with [place]. Clinicals Faxed. Evette stated that start of care may be as late as Sunday. Patient voiced no other needs at this time and is satisfied with DC plan. DC IMM delivered, explained, signed by the patient, and placed in chart. Signed form also left with the patient. CM will continue to follow and will assist as needed with dc plans/needs. DCP REVIEW SUMMARY ANTICIPATED D/C DATE: EXPECTED LOS : CASE STATUS: DCP Initiated INITIAL REVIEW: 12/03/2020 INITIAL REVIEWER: Tao Neal FINAL DISCHARGE DISPOSITION: : FINAL REVIEWER: FINAL REVIEW DATE: DCP Focus Questions & Answers DCP Evaluation QUESTION: ANSWER Patient and/or caregiver agree upon recommended discharge plan? : Yes Family / Caregiver's ability to cope with chronic illness: : a. Adequate (ability to meet patient's medical needs, ensures patient attends medical appts.) Patient's current cognitive status: : *Oriented to person, place, situation, time and present Patient's ability to cope with chronic illness : d. No chronic illness Patient gives permission to discuss discharge plans with: (name, relationship and number) : daughterYing, Does the patient have the ability to pay for or attain post discharge needs / services? : Yes Functional screen assessment: : Basic needs can adequately be met by self Family / Caregiver's ability to cope with chronic illness: : a. Adequate (ability to meet patient's medical needs, ensures patient attends medical appts.) Physical Status: : Partial care dependence Physical Status: : Mobility impaired Equipment needed for post hospitalization: : Hospital Bed Equipment needed for post hospitalization: : Home Oxygen with Nasal Cannula Equipment needed for post hospitalization: : Bedside Commode Is there a likelihood that the patient will require additional services to return to the preadmission environment? : Yes Living Arrangements: : Home with Extended Family Partial Dependence, assistance required for: : Eating Partial Dependence, assistance required for: : Dressing Partial Dependence, assistance required for: : Bathing Partial Dependence, assistance required for: : Ambulation / Mobility Patient with capacity for self-care or can be cared for in same environment as prior to hospitalization? : Yes Baseline cognitive status: : *Oriented to person, place, situation, time and present Physical environment modification needed / anticipated for discharge: : No Medication Management: : Patient states can read and understand medication labels Medication Management: : Patient states can afford medications Pharm[facility] name(s): : [facility] Does Patient have transportation to get home and to follow-up medical appointments when discharged from the hospital? : Yes Would patient like to participate in any Care Coordination programs (if applicable): : Not applicable Does the patient have electricity at home? : Yes Does the patient have running water in their house? : Yes Equipment in use: : Walker - Rollator Mental health screen: : No mental health history DCP Re-evaluation QUESTION: ANSWER Would patient like to participate in any Care Coordination programs (if applicable): : Not applicable PATIENT: DEIRDRE HAYDEN ENCOUNTER: [id number] MEDICAL RECORD#: [id number] ADMISSION DATE: 12/03/2020 DISCHARGE DATE: ATTENDING MD: SIVA FORD : AGE: 64 MARITAL STATUS: D DC PLAN ID: [id number] FACILITY: [facility] PRINTED ON: 12/07/20 16:04 CT All edits/amendments must be made on the electronic document DICTATION DATE: 12/07/201603 GED PREPARATION TEACHER: PERLA 12/07/201603 RPT#: [id number] DC DATE: STATUS: ADM IN [facility] [address] [place] [address] END OF REPORT
--- NOTE | 2020-12-07 17:59 | MORECARE ---
CASE MANAGEMENT DISCHARGE SUMMARY PATIENT: DEIRDRE HAYDEN UNIT: [id number] ADM DATE: 12/03/20 AGE: 64 : 59 SEX: M ROOM/BED: D.2106 AUTHOR: RAMONE,DOC PHYSICIAN: REFERRING PHYSICIAN: SIVA BEAN MD DATE OF SERVICE: 12/07/20 Case Management Discharge Planning Summary COMMENTS ENTERED DATE: 12/07/20 17:47 CT COMMENT TYPE: Discharge Planning REVIEWER: Moriah Freitas CM spoke with daughter Ying Day via phone today. She stated that they had spoke with MD and they would like to choose a different NH. MICHELLE completed for [facility]. CM will send referral. Patient will need a different dialysis unit if accepted to either of those facilities. ENTERED DATE: 12/06/20 16:36 CT COMMENT TYPE: Discharge Planning REVIEWER: Moriah Freitas Daughter contacted CM requesting information on Hospice. MICHELLE completed [facility]. CM called and contacted [facility] and asked them for someone to come speak with family. ENTERED DATE: 12/05/20 13:28 CT COMMENT TYPE: Discharge Planning REVIEWER: Tao Neal CM met with patient and daughter, Rosa Allison to complete DC plan and to evaluate needs. Patient currently lives at [place] but will discharge to his daughter, Ying [place], [place] [address]. Rosa stated that she and her sister will take care of their father and desire Home Health, a hospital bed, a bedside commode, and oxygen. Rosa stated that she and her sister will take their father to his dialysis appointments. The patient stated that he does not want hospice at this time. The patient is dependent for ADL's, dressing, eating, bathing. Rosa stated that the home is safe and has electricity and running water. Bk stated that the patient has a rollator walker. Patient stated that he has no problems paying for medications and he fills his medications at [facility]. Patient stated that his primary care physician is Dr. Bean. At discharge, the patient plans to live with his daughter, Ying and feels this is a safe discharge. CM discussed availability of home health, rehab services, and medical equipment. Patient declined SNF and IPR. MICHELLE signed and placed in chart. CM spoke with Evette with [place]. Clinicals Faxed. Evette stated that start of care may be as late as Sunday. Patient voiced no other needs at this time and is satisfied with DC plan. DC IMM delivered, explained, signed by the patient, and placed in chart. Signed form also left with the patient. CM will continue to follow and will assist as needed with dc plans/needs. DCP REVIEW SUMMARY ANTICIPATED D/C DATE: EXPECTED LOS : CASE STATUS: DCP Initiated INITIAL REVIEW: 12/03/2020 INITIAL REVIEWER: Tao Neal FINAL DISCHARGE DISPOSITION: : FINAL REVIEWER: FINAL REVIEW DATE: DCP Focus Questions & Answers DCP Evaluation QUESTION: ANSWER Patient and/or caregiver agree upon recommended discharge plan? : Yes Family / Caregiver's ability to cope with chronic illness: : a. Adequate (ability to meet patient's medical needs, ensures patient attends medical appts.) Patient's current cognitive status: : *Oriented to person, place, situation, time and present Patient's ability to cope with chronic illness : d. No chronic illness Patient gives permission to discuss discharge plans with: (name, relationship and number) : daughterYing Neighbors, Does the patient have the ability to pay for or attain post discharge needs / services? : Yes Functional screen assessment: : Basic needs can adequately be met by self Family / Caregiver's ability to cope with chronic illness: : a. Adequate (ability to meet patient's medical needs, ensures patient attends medical appts.) Physical Status: : Partial care dependence Physical Status: : Mobility impaired Equipment needed for post hospitalization: : Hospital Bed Equipment needed for post hospitalization: : Home Oxygen with Nasal Cannula Equipment needed for post hospitalization: : Bedside Commode Is there a likelihood that the patient will require additional services to return to the preadmission environment? : Yes Living Arrangements: : Home with Extended Family Partial Dependence, assistance required for: : Eating Partial Dependence, assistance required for: : Dressing Partial Dependence, assistance required for: : Bathing Partial Dependence, assistance required for: : Ambulation / Mobility Patient with capacity for self-care or can be cared for in same environment as prior to hospitalization? : Yes Baseline cognitive status: : *Oriented to person, place, situation, time and present Physical environment modification needed / anticipated for discharge: : No Medication Management: : Patient states can read and understand medication labels Medication Management: : Patient states can afford medications Pharmacy name(s): : [facility] Does Patient have transportation to get home and to follow-up medical appointments when discharged from the hospital? : Yes Would patient like to participate in any Care Coordination programs (if applicable): : Not applicable Does the patient have electricity at home? : Yes Does the patient have running water in their house? : Yes Equipment in use: : Walker - Rollator Mental health screen: : No mental health history DCP Re-evaluation QUESTION: ANSWER Would patient like to participate in any Care Coordination programs (if applicable): : Not applicable PATIENT: DEIRDRE HAYDEN ENCOUNTER: [id number] MEDICAL RECORD#: [id number] ADMISSION DATE: 12/03/2020 DISCHARGE DATE: ATTENDING MD: SIVA FORD : AGE: 64 MARITAL STATUS: D DC PLAN ID: [id number] FACILITY: [facility] PRINTED ON: 12/07/20 17:59 CT All edits/amendments must be made on the electronic document DICTATION DATE: 12/07/201758 MANAGER INVENTORY MANAGEMENT: PERLA 12/07/201758 RPT#: [id number] DC DATE: STATUS: ADM IN [facility] [address] [place] [address] END OF REPORT
[2020-12-07 20:00] VITALS: BP 114/71
--- NOTE | 2020-12-08 02:32 | NUR ---
I have reviewed this patient and I concur with the Shift Assessment completed by the Licensed Practical Nurse today this shift.
--- NOTE | 2020-12-08 02:54 | NUR ---
PT PULLED PIV OUT, NEW IV STARTED LEFT HAND 20 HEIDY.
[2020-12-08 04:00] VITALS: BP 104/63
[2020-12-08 06:01] LABS: ANION GAP 14.6 mmol/L (8-16); CALCIUM 8.9 mg/dL (8.5-10.1); CARBON DIOXIDE 26.7 mmol/L (21.0-32.0); POTASSIUM - SERUM 3.3 mmol/L (3.5-5.1)
[2020-12-08 06:10] LABS: BASOPHILS 1.4 % (0-2); EOSINOPHILS 9.3 % (0-7); HEMATOCRIT 25.5 % (42.0-54.0); HEMOGLOBIN 8.5 g/dL (13.5-17.5); MCH 29.4 pg (26.0-34.0); MCHC 33.5 g/dL (31.0-37.0); MEAN PLATELET VOLUME 9.5 fL (7.4-10.4); MONOCYTES 9.7 % (2-11); NEUTROPHILS 53.6 % (40-80); PLATELET COUNT 258 10x3/uL (130-400); RDW 15.2 % (11.5-14.5); WBC 4.5 10x3/uL (4.8-10.8)
[2020-12-08 06:39] LABS: MCV 87.8 fL (80.0-100.0)
[2020-12-08 07:44] VITALS: BP 105/62
--- NOTE | 2020-12-08 08:00 | NUR ---
Lying in bed, awake/alert/oriented, T/R freq for C/C, FC patent and draining dark yellow urine in ample amt, cath care provided with daily bath and prn, incont of bowel with incont pad use, pericare provided with daily bath and prn, denies pain/other discomfort at this time, call light/phone/water within reach, no s/s of acute distress observed.
[2020-12-08 11:10] VITALS: BP 79/55
--- NOTE | 2020-12-08 15:00 | NUR ---
Off unit for Dialysis
--- NOTE | 2020-12-08 20:00 | NUR ---
REPORT RECEIVED. PT A&O, UP IN BED WITH FAMILY AT BEDSIDE. NO S/S OF DISTRESS OBSERVED. RR EVEN & UNLABORED ON RA. L 20 G IV SL. SR 80 W/ DEPRESSED T WAVES AND OCCASIONAL PVCS. RESERVE R ARM FOR FISTULA. BARON IN PLACE. BED LOCKED AND LOWERED, CL IN REACH. WILL CONT POC.
[2020-12-08 23:38] VITALS: BP 104/63
[2020-12-09 05:00] VITALS: BP 106/72
[2020-12-09 06:50] LABS: BASOPHILS 1.9 % (0-2); EOSINOPHILS 14.7 % (0-7); HEMATOCRIT 27.2 % (42.0-54.0); HEMOGLOBIN 8.9 g/dL (13.5-17.5); LYMPHOCYTES 31.7 % (15-50); MCH 29.3 pg (26.0-34.0); MCHC 32.6 g/dL (31.0-37.0); MCV 89.7 fL (80.0-100.0); MEAN PLATELET VOLUME 9.6 fL (7.4-10.4); MONOCYTES 7.7 % (2-11); PLATELET COUNT 299 10x3/uL (130-400); RBC 3.03 10x6/uL (4.20-6.10); RDW 14.8 % (11.5-14.5); WBC 5.3 10x3/uL (4.8-10.8)
[2020-12-09 06:58] LABS: ANION GAP 15.3 mmol/L (8-16); CREATININE - SERUM 4.7 mg/dL (0.6-1.3); POTASSIUM - SERUM 3.3 mmol/L (3.5-5.1)
[2020-12-09 07:37] VITALS: BP 124/74
--- NOTE | 2020-12-09 10:09 | NUR ---
Nutrition Reassessment/Follow-up: Poor PO intake observed this AM. Reports drinking 1 Nepro/day; does not wish to receive any more than 1/day. Denies N/V. C/o diarrhea. HD yesterday. Today [birth year] his birthday. Diet: Renal, Nepro QD No new wt; last wt: 170# (12/04) Labs noted: K+ 3.3, BUN 32, Cre 4.7, GFR 13, Glu 64 Meds noted: Prednisone, Thiamine, Reglan, Pepcid, Glucotrol Nutrition Dx: -Altered nutrition-related lab values R/T ESRD AEB BUN 32, Cre 4.7, GFR 13. -Inadequate energy intake R/T decreased appetite AEB poor PO intake reported/ observed. Nutrition Goals: -PO intake >=75% avg of meals/snacks. -Meet est fluid needs without fluid overload. -Stable dry wt. -Glu at or near normal. Nutrition Intervention: -Nutrition needs unchanged since initial assessment. -Encourage PO intake and honor food preferences within diet restrictions. -Continue Nepro as tolerated. -Pt may benefit from an appetite stimulant if medically feasible. -Need new wt. -RD will follow up within 4-5 days.
--- NOTE | 2020-12-09 12:42 | NUR ---
I have reviewed this patient and I concur with the Shift Assessment completed by the Licensed Practical Nurse today this shift.
[2020-12-09 15:41] VITALS: BP 105/65
[2020-12-09 23:30] VITALS: BP 109/75
--- NOTE | 2020-12-10 04:04 | NUR ---
REPORT RECEIVED. PT A&C, ASKING THIS NURSE WHAT IS GOING ON AND WHAT IS HAPPENING. REORIENTED; PT CONFUSED AGAIN BEFORE THIS NURSE LEFT THE ROOM. BED ALARM ON, PTS ROOM NEAR NURSES STATION AND DOOR OPEN. NO S/S OF DISTRESS OBSERVED. RR EVEN & UNLABORED ON RA. SR ON TELE. IV TO L HAND PATENT. BED LOCKED AND LOWERED, CL IN REACH. WILL CONT POC.
[2020-12-10 05:39] VITALS: BP 118/75
--- NOTE | 2020-12-10 07:30 | NUR ---
Lying in bed, awake/alert/oriented, T/R freq for C/C, FC patent and draining clear yellow urine to CDB in ample amt, cath care provided with daily bath and PRN, cont of bowel with use of bedpan/BSC/incont pads, pericare provided with daily bath and PRN, denies pain/other discomfort at this time, call light/phone/water within reach, no s/s of acute distress observed.
--- NOTE | 2020-12-10 07:40 | NUR ---
Using asceptic technique after washing hands and doning gloves, this nurse removed 8 mL staerile H2O from intact bulb, removed FC at this time, CDB of cath contained 200 mL of adilson colred urine, azalia well with no s/s of acute distress observed.
[2020-12-10 09:00] VITALS: BP 102/62
--- NOTE | 2020-12-10 13:00 | NUR ---
Off unit via w/c in stable condition for dialysis, no s/s of acute distress observed.
[2020-12-10 16:00] VITALS: BP 120/72
--- NOTE | 2020-12-10 16:40 | NUR ---
Returned from Dialysis having 1.2 liters taken off.
--- NOTE | 2020-12-10 19:18 | NUR ---
RECIEVED UP IN BED WITH EYES OPEN. ALERT AND CONFUSED. O2@ 2 LITERS PER N/C. IV TO LT HAND SL. DENIES ANY NEEDS AT THIS TIME. RT ARM RESERVED D/T AVF.
[2020-12-10 21:06] VITALS: BP 102/65
[2020-12-11 02:09] VITALS: BP 100/65
[2020-12-11 06:47] VITALS: BP 96/64
--- NOTE | 2020-12-11 07:00 | NUR ---
RECEIVED REPORT. ASSUMED CARE OF PATIENT. PATIENT RESTING WELL WITH EYES CLOSED. RESP EVEN AND UNLABORED. TO [facility] TODAY?? WHITE BOARD UPDATED, BEDSIDE SHIFT REPORT COMPLETE. NO DISTRESS.
[2020-12-11 09:11] VITALS: BP 133/83
[2020-12-11 16:39] VITALS: BP 132/79
--- NOTE | 2020-12-11 17:12 | NUR ---
20 GAUGE IV TO LEFT HAND FOUND DISLODGED, UNALBE TO FLUSH. IV REMOVED, CATHETER TIP INTACT. NO BLEEDING FROM SITE. PATIENT TOLERATED IV REMOVAL WELL.
[2020-12-11 20:59] VITALS: BP 108/68
--- NOTE | 2020-12-11 21:56 | NUR ---
PATIENT C/O OF PAIN IN HIS FINGERS AND TOES. [facility]OTHMAN APN NOTIFIED, GAVE TELEPHONE ORDERES TO GIVE TRAMADOL.
--- NOTE | 2020-12-11 22:40 | NUR ---
REPORT RECEIVED. PATIENT LAYING IN BED, A&O CONFUSED AT TIMES. O2 2L NC, RIGHT ARM RESERVE, 20G IN L HAND, PATIENT, DRESSING DRY, AND INTACT. DIALYSIS ON T, TH, SAT. BED LOW, LOCKED, BEDSIDE TABLE, AND CALL LIGHT WITHIN REACH. WILL CONTINUE PLAN OF CARE.
[2020-12-12] VITALS: BP 89/63
[2020-12-12 04:30] VITALS: BP 103/58
[2020-12-12 05:13] LABS: BASOPHILS 0.8 % (0-2); EOSINOPHILS 12.1 % (0-7); HEMATOCRIT 28.3 % (42.0-54.0); HEMOGLOBIN 9.2 g/dL (13.5-17.5); LYMPHOCYTES 32.3 % (15-50); MCH 28.5 pg (26.0-34.0); MCHC 32.6 g/dL (31.0-37.0); MCV 87.4 fL (80.0-100.0); MEAN PLATELET VOLUME 8.6 fL (7.4-10.4); MONOCYTES 8.2 % (2-11); NEUTROPHILS 46.6 % (40-80); PLATELET COUNT 329 10x3/uL (130-400); RBC 3.24 10x6/uL (4.20-6.10); RDW 15.8 % (11.5-14.5); WBC 6.9 10x3/uL (4.8-10.8)
[2020-12-12 05:24] LABS: ALBUMIN 2.5 g/dL (3.4-5.0); ANION GAP 14.4 mmol/L (8-16); BILIRUBIN - TOTAL 0.4 mg/dL (0.2-1.3); CALCIUM 9.3 mg/dL (8.5-10.1); CARBON DIOXIDE 28.7 mmol/L (21.0-32.0); CREATININE - SERUM 5.4 mg/dL (0.6-1.3); POTASSIUM - SERUM 3.1 mmol/L (3.5-5.1)
[2020-12-12 08:55] VITALS: BP 111/74
--- NOTE | 2020-12-12 09:44 | NUR ---
ROUNDING DONE THIS AM WITH PATIENT SITTING ON SIDE OF BED EATING BREAKFAST. DENIES NEEDS. ON 2L PER NC. LEFT HAND PIV SEEN WITH SALINE LOCK, ORANGE CAP IN PLACE. RES. RIGHT ARM WITH UPPER ARM FISTULA. + BRUIT AND THRILL. PATIENT STATES HE SELF CATHS. KASANDRA MAT ALARM IS ON AND IN USE.
--- NOTE | 2020-12-12 12:55 | NUR ---
FINSIHED EATING LUNCH WITH NO COMPLAINTS AT THIS TIME. WANTS TO TAKE A NAP.
[2020-12-12 13:03] VITALS: BP 118/73
--- NOTE | 2020-12-12 17:13 | NUR ---
HAS BEEN UP TO SIDE OF BED FOR SUPPER. BED LINENS STRAIGHNTEN AND KASANDRA MAT ALARM IS ON AND IN USE. CALL LIGHT IN USE.
--- NOTE | 2020-12-12 19:34 | MORECARE ---
CASE MANAGEMENT DISCHARGE SUMMARY PATIENT: DEIRDRE HAYDEN UNIT: [id number] ADM DATE: 12/03/20 AGE: 65 : 59 SEX: M ROOM/BED: D.2106 AUTHOR: RAMONE,DOC PHYSICIAN: REFERRING PHYSICIAN: SIVA BEAN MD DATE OF SERVICE: 12/12/20 Case Management Discharge Planning Summary COMMENTS ENTERED DATE: 12/12/20 19:21 CT COMMENT TYPE: Discharge Planning REVIEWER: Moriah Freitas Late Entry 12/10/20 CM received notice from Fanny WILL that patient will be TTHS at [place] [facility] unsure of time. Terry at [facility] stated that they would accept patient but he would have to check on transportation to dialysis. CM has spoke with patient and daughter Ying and they are aware of updates. ENTERED DATE: 12/07/20 17:47 CT COMMENT TYPE: Discharge Planning REVIEWER: Moriah Freitas CM spoke with daughter Ying Neighbors via phone today. She stated that they had spoke with MD and they would like to choose a different NH. MICHELLE completed for [facility]. CM will send referral. Patient will need a different dialysis unit if accepted to either of those facilities. ENTERED DATE: 12/06/20 16:36 CT COMMENT TYPE: Discharge Planning REVIEWER: Moriah Washingtonr Daughter contacted CM requesting information on Hospice. MICHELLE completed [facility]. CM called and contacted [facility] and asked them for someone to come speak with family. ENTERED DATE: 12/05/20 13:28 CT COMMENT TYPE: Discharge Planning REVIEWER: Tao Neal CM met with patient and daughter, Rosa Allison to complete DC plan and to evaluate needs. Patient currently lives at [place] but will discharge to his daughter, Ying Day, [place] [id number]. Rosa stated that she and her sister will take care of their father and desire Home Health, a hospital bed, a bedside commode, and oxygen. Rosa stated that she and her sister will take their father to his dialysis appointments. The patient stated that he does not want hospice at this time. The patient is dependent for ADL's, dressing, eating, bathing. Rosa stated that the home is safe and has electricity and running water. Bk stated that the patient has a rollator walker. Patient stated that he has no problems paying for medications and he fills his medications at [facility]. Patient stated that his primary care physician is Dr. Bean. At discharge, the patient plans to live with his daughter, Ying and feels this is a safe discharge. CM discussed availability of home health, rehab services, and medical equipment. Patient declined SNF and IPR. MICHELLE signed and placed in chart. CM spoke with Evette with [facility]. Clinicals Faxed. Evette stated that start of care may be as late as Sunday. Patient voiced no other needs at this time and is satisfied with DC plan. DC IMM delivered, explained, signed by the patient, and placed in chart. Signed form also left with the patient. CM will continue to follow and will assist as needed with dc plans/needs. DCP REVIEW SUMMARY ANTICIPATED D/C DATE: EXPECTED LOS : CASE STATUS: DCP Initiated INITIAL REVIEW: 12/03/2020 INITIAL REVIEWER: Tao Neal FINAL DISCHARGE DISPOSITION: : FINAL REVIEWER: FINAL REVIEW DATE: DCP Focus Questions & Answers DCP Evaluation QUESTION: ANSWER Patient gives permission to discuss discharge plans with: (name, relationship and number) : daughter, Ying Day, Patient's ability to cope with chronic illness : d. No chronic illness Patient's current cognitive status: : *Oriented to person, place, situation, time and present Family / Caregiver's ability to cope with chronic illness: : a. Adequate (ability to meet patient's medical needs, ensures patient attends medical appts.) Patient and/or caregiver agree upon recommended discharge plan? : Yes Physical Status: : Mobility impaired Physical Status: : Partial care dependence Family / Caregiver's ability to cope with chronic illness: : a. Adequate (ability to meet patient's medical needs, ensures patient attends medical appts.) Functional screen assessment: : Basic needs can adequately be met by self Does the patient have the ability to pay for or attain post discharge needs / services? : Yes Partial Dependence, assistance required for: : Ambulation / Mobility Partial Dependence, assistance required for: : Bathing Partial Dependence, assistance required for: : Dressing Partial Dependence, assistance required for: : Eating Living Arrangements: : Home with Extended Family Is there a likelihood that the patient will require additional services to return to the preadmission environment? : Yes Equipment needed for post hospitalization: : Bedside Commode Equipment needed for post hospitalization: : Home Oxygen with Nasal Cannula Equipment needed for post hospitalization: : Hospital Bed Baseline cognitive status: : *Oriented to person, place, situation, time and present Patient with capacity for self-care or can be cared for in same environment as prior to hospitalization? : Yes Physical environment modification needed / anticipated for discharge: : No Medication Management: : Patient states can afford medications Medication Management: : Patient states can read and understand medication labels [facility] Does Patient have transportation to get home and to follow-up medical appointments when discharged from the hospital? : Yes Would patient like to participate in any Care Coordination programs (if applicable): : Not applicable Does the patient have electricity at home? : Yes Does the patient have running water in their house? : Yes Equipment in use: : Walker - Rollator Mental health screen: : No mental health history DCP Re-evaluation QUESTION: ANSWER Would patient like to participate in any Care Coordination programs (if applicable): : Not applicable PATIENT: DEIRDRE HAYDNE ENCOUNTER: [id number] MEDICAL RECORD#: [id number] ADMISSION DATE: 12/03/2020 DISCHARGE DATE: ATTENDING MD: SIVA FORD : AGE: 65 MARITAL STATUS: D DC PLAN ID: [id number] FACILITY: [facility] PRINTED ON: 12/12/20 19:34 CT All edits/amendments must be made on the electronic document DICTATION DATE: 12/12/201933 FURNITURE REMOVALIST'S ASSISTANT: PERLA 12/12/201933 RPT#: [id number] DC DATE: STATUS: ADM IN [facility] [address] [place] [address] END OF REPORT
[2020-12-12 20:39] VITALS: BP 108/68
[2020-12-13 01:57] VITALS: BP 105/69
[2020-12-13 05:52] VITALS: BP 116/76
--- NOTE | 2020-12-13 07:00 | NUR ---
RECIEVED REPORT. ASSUMED CARE OF PATIENT. CALL LIGHT WITHIN REACH. PATIENT RESTING WITH EYES CLOSED, EASILY AROUSED. PATIENT FOR DISCHARGE SOON TO [facility] WORKING ON [facility]SP[facility]ATION. WHITE BOARD UPDATED, BEDSIDE SHIFT REPORT COMPLETE. NO DISTRESS.
[2020-12-13 08:00] VITALS: BP 97/70
--- NOTE | 2020-12-13 08:59 | NUR ---
COMPLETE BEDCHANGE AND INCONTINENT CARE RENDERED. NO DISTRESS.
[2020-12-13 12:00] VITALS: BP 106/73
[2020-12-13 16:00] VITALS: BP 117/74
[2020-12-13 21:55] VITALS: BP 107/64
--- NOTE | 2020-12-13 23:18 | NUR ---
REPORT RECEIVED. PT A&O, RESTING IN BED. NO S/S OF DISTRESS OBSERVED. RR EVEN & UNLABORED ON 2L. IV TO L HAND PATENT AND SL. BED LOCKED AND LOWERED, CL IN REACH. WILL CONT POC.
[2020-12-14 02:21] VITALS: BP 120/80
[2020-12-14 06:06] VITALS: BP 96/67
[2020-12-14 08:25] LABS: BASOPHILS 1.1 % (0-2); EOSINOPHILS 4.6 % (0-7); HEMATOCRIT 30.4 % (42.0-54.0); HEMOGLOBIN 9.7 g/dL (13.5-17.5); LYMPHOCYTES 22.5 % (15-50); MCH 28.2 pg (26.0-34.0); MEAN PLATELET VOLUME 7.9 fL (7.4-10.4); MONOCYTES 8.9 % (2-11); NEUTROPHILS 62.9 % (40-80); RBC 3.45 10x6/uL (4.20-6.10); WBC 10.5 10x3/uL (4.8-10.8)
[2020-12-14 08:38] LABS: ANION GAP 18.2 mmol/L (8-16); CARBON DIOXIDE 23.8 mmol/L (21.0-32.0); CREATININE - SERUM 8.2 mg/dL (0.6-1.3)
--- NOTE | 2020-12-14 08:46 | NUR ---
PT K+LEVEL 3.0, DR GUZMAN WANTED CHECKED SO COULD TREAT WITH DIALYSIS.
[2020-12-14 08:58] LABS: PLATELET COUNT 470 10x3/uL (130-400)
[2020-12-14 09:00] VITALS: BP 122/82
[2020-12-14 16:00] VITALS: BP 126/76
[2020-12-14 20:00] VITALS: BP 116/70
--- NOTE | 2020-12-14 20:00 | NUR ---
REPORT RECEIVED. PT A&O, UP IN BED WATCHING TV. NO S/S OF DISTRESS OBSERVED. RR EVEN & UNLABORED ON 2L. 20G TO L HAND SL. BED ALARM ON. BEDSIDE COMMODE IN PLACE. BED LOCKED AND LOWERED, CL IN REACH. WILL CONT POC.
[2020-12-15 01:08] VITALS: BP 149/71
[2020-12-15 02:03] VITALS: BP 110/75
[2020-12-15 06:50] VITALS: BP 123/82
[2020-12-15 07:34] VITALS: BP 123/82
[2020-12-15 08:50] LABS: ANION GAP 17.2 mmol/L (8-16); CALCIUM 8.9 mg/dL (8.5-10.1); CARBON DIOXIDE 25.7 mmol/L (21.0-32.0); CREATININE - SERUM 6.7 mg/dL (0.6-1.3)
[2020-12-15 08:52] LABS: POTASSIUM - SERUM 2.9 mmol/L (3.5-5.1)
[2020-12-15 09:00] VITALS: BP 114/67
[2020-12-15 09:30] LABS: BASOPHILS 1.3 % (0-2); EOSINOPHILS 9.6 % (0-7); HEMATOCRIT 28.6 % (42.0-54.0); HEMOGLOBIN 9.3 g/dL (13.5-17.5); LYMPHOCYTES 30.8 % (15-50); MCH 28.7 pg (26.0-34.0); MCHC 32.5 g/dL (31.0-37.0); MCV 88.1 fL (80.0-100.0); MEAN PLATELET VOLUME 8.1 fL (7.4-10.4); MONOCYTES 12.5 % (2-11); NEUTROPHILS 45.8 % (40-80); PLATELET COUNT 419 10x3/uL (130-400); RBC 3.25 10x6/uL (4.20-6.10); RDW 16.1 % (11.5-14.5); WBC 9.4 10x3/uL (4.8-10.8)
--- NOTE | 2020-12-15 10:59 | NUR ---
Dialysis Coordinator: Patient has been accepted at [facility] on a TTS 11:40 arrival for 12:00 on time. Patient must start in-center on , 12/16 or he will have to wait until Sunday, 12/23, as the clinic is unable to do a Sunday start on a new patient. Case Management is aware. The welcome letter and approved chair time was provided on Sunday afternoon, 12/13/20. Elma Escudero, [employer], .
[2020-12-15] MEDS ORDERED: IMODIUM2 MG PO (11:48)
[2020-12-15] MEDS ORDERED: VITAMIN B-1100 M1 PO (11:55)
--- NOTE | 2020-12-15 12:13 | NUR ---
Nutrition Follow-up: Overall poor/fair PO intake. C/o diarrhea. Not drinking Nepro 2/2 diarrhea. Imodium PRN. Noted plans to d/c today. Diet: Renal, Nepro QD No new wt; last wt: 170# (12/04) Labs noted: K+ 2.9, Glu 80, PO4 6.5 Meds noted: Reglan, Prednisone, Pepcid, Glucotrol, Imodium -Encourage PO intake and honor food preferences within diet restrictions. -MD may consider PO4 binder 2/2 hyperphosphatemia. -Need new wt. -RD will follow up within 4-5 days if pt still admitted.
--- NOTE | 2020-12-15 13:29 | NUR ---
D/C LEFT HAND IV, TIP INTACT. DISCHARGE INSTRUCTIONS GIVEN VERBALLY AND HANDOUTS PROVIDED. CALISTA CONTRERASS HERE TO GINNER HELPER PATIENT VIA WHEELCHAIR. REMAINS FREE FROM INJURY WHILE IN CARE.
--- NOTE | 2020-12-15 20:36 | MORECARE ---
CASE MANAGEMENT DISCHARGE SUMMARY PATIENT: DEIRDRE HAYDEN UNIT: [id number] ADM DATE: 12/03/20 AGE: 65 : 59 SEX: M ROOM/BED: D.2106 AUTHOR: RAMONE,DOC PHYSICIAN: REFERRING PHYSICIAN: SIVA BEAN MD DATE OF SERVICE: 12/15/20 Case Management Discharge Planning Summary COMMENTS ENTERED DATE: 12/12/20 19:21 CT COMMENT TYPE: Discharge Planning REVIEWER: Moriah Freitas Late Entry 12/10/20 CM received notice from Fanny WILL that patient will be TTHS at [place] [facility] unsure of time. Terry at [facility] stated that they would accept patient but he would have to check on transportation to dialysis. CM has spoke with patient and daughter Ying and they are aware of updates. ENTERED DATE: 12/07/20 17:47 CT COMMENT TYPE: Discharge Planning REVIEWER: Moriah Freitas CM spoke with daughter Ying Neighbors via phone today. She stated that they had spoke with MD and they would like to choose a different NH. MICHELLE completed for [facility]. CM will send referral. Patient will need a different dialysis unit if accepted to either of those facilities. ENTERED DATE: 12/06/20 16:36 CT COMMENT TYPE: Discharge Planning REVIEWER: Moriah Washingtonr Daughter contacted CM requesting information on Hospice. MICHELLE completed [facility]. CM called and contacted [facility] and asked them for someone to come speak with family. ENTERED DATE: 12/05/20 13:28 CT COMMENT TYPE: Discharge Planning REVIEWER: Tao Neal CM met with patient and daughter, Rosa Allison to complete DC plan and to evaluate needs. Patient currently lives at [place] but will discharge to his daughter, Ying Day, [place] [id number]. Rosa stated that she and her sister will take care of their father and desire Home Health, a hospital bed, a bedside commode, and oxygen. Rosa stated that she and her sister will take their father to his dialysis appointments. The patient stated that he does not want hospice at this time. The patient is dependent for ADL's, dressing, eating, bathing. Rosa stated that the home is safe and has electricity and running water. Bk stated that the patient has a rollator walker. Patient stated that he has no problems paying for medications and he fills his medications at [facility]. Patient stated that his primary care physician is Dr. Bean. At discharge, the patient plans to live with his daughter, Ying and feels this is a safe discharge. CM discussed availability of home health, rehab services, and medical equipment. Patient declined SNF and IPR. MICHELLE signed and placed in chart. CM spoke with Evette with [facility]. Clinicals Faxed. Evette stated that start of care may be as late as Sunday. Patient voiced no other needs at this time and is satisfied with DC plan. DC IMM delivered, explained, signed by the patient, and placed in chart. Signed form also left with the patient. CM will continue to follow and will assist as needed with dc plans/needs. DCP REVIEW SUMMARY ANTICIPATED D/C DATE: EXPECTED LOS : CASE STATUS: DCP Initiated INITIAL REVIEW: 12/03/2020 INITIAL REVIEWER: Tao Neal FINAL DISCHARGE DISPOSITION: : FINAL REVIEWER: FINAL REVIEW DATE: DCP Focus Questions & Answers DCP Evaluation QUESTION: ANSWER Patient and/or caregiver agree upon recommended discharge plan? : Yes Family / Caregiver's ability to cope with chronic illness: : a. Adequate (ability to meet patient's medical needs, ensures patient attends medical appts.) Patient's current cognitive status: : *Oriented to person, place, situation, time and present Patient's ability to cope with chronic illness : d. No chronic illness Patient gives permission to discuss discharge plans with: (name, relationship and number) : daughterYing, Does the patient have the ability to pay for or attain post discharge needs / services? : Yes Functional screen assessment: : Basic needs can adequately be met by self Family / Caregiver's ability to cope with chronic illness: : a. Adequate (ability to meet patient's medical needs, ensures patient attends medical appts.) Physical Status: : Partial care dependence Physical Status: : Mobility impaired Equipment needed for post hospitalization: : Hospital Bed Equipment needed for post hospitalization: : Home Oxygen with Nasal Cannula Equipment needed for post hospitalization: : Bedside Commode Is there a likelihood that the patient will require additional services to return to the preadmission environment? : Yes Living Arrangements: : Home with Extended Family Partial Dependence, assistance required for: : Eating Partial Dependence, assistance required for: : Dressing Partial Dependence, assistance required for: : Bathing Partial Dependence, assistance required for: : Ambulation / Mobility Patient with capacity for self-care or can be cared for in same environment as prior to hospitalization? : Yes Baseline cognitive status: : *Oriented to person, place, situation, time and present Physical environment modification needed / anticipated for discharge: : No Medication Management: : Patient states can read and understand medication labels Medication Management: : Patient states can afford medications [facility]): [facility] Does Patient have transportation to get home and to follow-up medical appointments when discharged from the hospital? : Yes Would patient like to participate in any Care Coordination programs (if applicable): : Not applicable Does the patient have electricity at home? : Yes Does the patient have running water in their house? : Yes Equipment in use: : Walker - Rollator Mental health screen: : No mental health history DCP Re-evaluation QUESTION: ANSWER Would patient like to participate in any Care Coordination programs (if applicable): : Not applicable PATIENT: DEIRDRE HAYDEN ENCOUNTER: [id number] MEDICAL RECORD#: [id number] ADMISSION DATE: 12/03/2020 DISCHARGE DATE: 12/15/2020 ATTENDING MD: SIVA FORD : AGE: 65 MARITAL STATUS: D DC PLAN ID: [id number] FACILITY: [facility] PRINTED ON: 12/15/20 20:36 CT All edits/amendments must be made on the electronic document DICTATION DATE: 12/15/202035 SPORTS APPAREL INTERNSHIP: PERLA 12/15/202035 RPT#: [id number] DC DATE:12/15/20 STATUS: DIS IN [place] [id number] [place] [address] END OF REPORT
--- NOTE | 2020-12-16 13:54 | MORECARE ---
CASE MANAGEMENT DISCHARGE SUMMARY PATIENT: DEIRDRE HAYDEN UNIT: [id number] ADM DATE: 12/03/20 AGE: 65 : 59 SEX: M ROOM/BED: D.2106 AUTHOR: RAMONE,DOC PHYSICIAN: REFERRING PHYSICIAN: SIVA BEAN MD DATE OF SERVICE: 12/16/20 Case Management Discharge Planning Summary COMMENTS ENTERED DATE: 12/12/20 19:21 CT COMMENT TYPE: Discharge Planning REVIEWER: Moriah Freitas Late Entry 12/10/20 CM received notice from Fanny WILL that patient will be TTHS at [place] [facility] unsure of time. Terry at [facility] stated that they would accept patient but he would have to check on transportation to dialysis. CM has spoke with patient and daughter Ying and they are aware of updates. ENTERED DATE: 12/07/20 17:47 CT COMMENT TYPE: Discharge Planning REVIEWER: Moriah Freitas CM spoke with daughter Ying Neighbors via phone today. She stated that they had spoke with MD and they would like to choose a different NH. MICHELLE completed for [facility]. CM will send referral. Patient will need a different dialysis unit if accepted to either of those facilities. ENTERED DATE: 12/06/20 16:36 CT COMMENT TYPE: Discharge Planning REVIEWER: Moriah Washingtonr Daughter contacted CM requesting information on Hospice. MICHELLE completed [facility]. CM called and contacted [facility] and asked them for someone to come speak with family. ENTERED DATE: 12/05/20 13:28 CT COMMENT TYPE: Discharge Planning REVIEWER: Tao Neal CM met with patient and daughter, Rosa Allison to complete DC plan and to evaluate needs. Patient currently lives at [place] but will discharge to his daughter, Ying Day, [place] [id number]. Rosa stated that she and her sister will take care of their father and desire Home Health, a hospital bed, a bedside commode, and oxygen. Rosa stated that she and her sister will take their father to his dialysis appointments. The patient stated that he does not want hospice at this time. The patient is dependent for ADL's, dressing, eating, bathing. Rosa stated that the home is safe and has electricity and running water. Bk stated that the patient has a rollator walker. Patient stated that he has no problems paying for medications and he fills his medications at [facility]. Patient stated that his primary care physician is Dr. Bean. At discharge, the patient plans to live with his daughter, Ying and feels this is a safe discharge. CM discussed availability of home health, rehab services, and medical equipment. Patient declined SNF and IPR. MICHELLE signed and placed in chart. CM spoke with Evette with [facility]. Clinicals Faxed. Evette stated that start of care may be as late as Sunday. Patient voiced no other needs at this time and is satisfied with DC plan. DC IMM delivered, explained, signed by the patient, and placed in chart. Signed form also left with the patient. CM will continue to follow and will assist as needed with dc plans/needs. DCP REVIEW SUMMARY ANTICIPATED D/C DATE: EXPECTED LOS : CASE STATUS: DCP Initiated INITIAL REVIEW: 12/03/2020 INITIAL REVIEWER: Tao Neal FINAL DISCHARGE DISPOSITION: : FINAL REVIEWER: FINAL REVIEW DATE: DCP Focus Questions & Answers DCP Evaluation QUESTION: ANSWER Patient and/or caregiver agree upon recommended discharge plan? : Yes Family / Caregiver's ability to cope with chronic illness: : a. Adequate (ability to meet patient's medical needs, ensures patient attends medical appts.) Patient's current cognitive status: : *Oriented to person, place, situation, time and present Patient's ability to cope with chronic illness : d. No chronic illness Patient gives permission to discuss discharge plans with: (name, relationship and number) : daughterYing, Does the patient have the ability to pay for or attain post discharge needs / services? : Yes Functional screen assessment: : Basic needs can adequately be met by self Family / Caregiver's ability to cope with chronic illness: : a. Adequate (ability to meet patient's medical needs, ensures patient attends medical appts.) Physical Status: : Partial care dependence Physical Status: : Mobility impaired Equipment needed for post hospitalization: : Hospital Bed Equipment needed for post hospitalization: : Home Oxygen with Nasal Cannula Equipment needed for post hospitalization: : Bedside Commode Is there a likelihood that the patient will require additional services to return to the preadmission environment? : Yes Living Arrangements: : Home with Extended Family Partial Dependence, assistance required for: : Eating Partial Dependence, assistance required for: : Dressing Partial Dependence, assistance required for: : Bathing Partial Dependence, assistance required for: : Ambulation / Mobility Patient with capacity for self-care or can be cared for in same environment as prior to hospitalization? : Yes Baseline cognitive status: : *Oriented to person, place, situation, time and present Physical environment modification needed / anticipated for discharge: : No Medication Management: : Patient states can read and understand medication labels Medication Management: : Patient states can afford medications [facility]): [facility] Does Patient have transportation to get home and to follow-up medical appointments when discharged from the hospital? : Yes Would patient like to participate in any Care Coordination programs (if applicable): : Not applicable Does the patient have electricity at home? : Yes Does the patient have running water in their house? : Yes Equipment in use: : Walker - Rollator Mental health screen: : No mental health history DCP Re-evaluation QUESTION: ANSWER Would patient like to participate in any Care Coordination programs (if applicable): : Not applicable PATIENT: DEIRDRE HAYDEN ENCOUNTER: [id number] MEDICAL RECORD#: [id number] ADMISSION DATE: 12/03/2020 DISCHARGE DATE: 12/15/2020 ATTENDING MD: SIVA FORD : AGE: 65 MARITAL STATUS: D DC PLAN ID: [id number] FACILITY: [facility] PRINTED ON: 12/16/20 13:54 CT All edits/amendments must be made on the electronic document DICTATION DATE: 12/16/20 9695 BACKING IN MACHINE TENDER: PERLA 12/16/20 1354 RPT#: [id number] DC DATE:12/15/20 STATUS: DIS IN [place] [id number] [place] [address] END OF REPORT
== END 2020-12-15 13:34 | DRG 291 ==
LOC: D.ER 22:39 → D.EDHOLD 12-03 02:43 → OBSVTIME 12-03 02:43 → D.M2 12-03 13:17
PROVIDERS: Emergency Medicine; Family Medicine; Internal Medicine Nephrology; ADMIT Legal Medicine; ATTEND Legal Medicine
DX: I13.2 Hypertensive heart and chronic kidney disease with heart failure and with stage 5 chronic kidney disease, or end stage renal disease (principal); N18.6 End stage renal disease; J18.9 Pneumonia, unspecified organism; Z94.0 Kidney transplant status; Z99.2 Dependence on renal dialysis; R41.82 Altered mental status, unspecified; D63.1 Anemia in chronic kidney disease; E11.22 Type 2 diabetes mellitus with diabetic chronic kidney disease; I25.5 Ischemic cardiomyopathy; I50.9 Heart failure, unspecified; G31.9 Degenerative disease of nervous system, unspecified